=== PATIENT | male | born 1995 | race Two or more races ===

== ENCOUNTER 2024-01-16 01:27 | Inpatient (IN) | payer BC, OTHER ==
[~2024-01-16] VITALS: Ht 182.9 cm; Wt 63.2 kg
[2024-01-16] VITALS (14 sets, daily range): BP systolic 107–128; BP diastolic 55–77; PULSE 119–153; RESP 16–24; TEMP 98.3–100.6; O2SAT 98–100
--- NOTE | 2024-01-16 02:05 | ED.PDOC ---
History of Present Illness HPI Comments 28-year-old male with PMHx Anemia, Ulcerative Colitis presents with a chief complaint of insect bites x 3 days. Patient states that he has three insect bites, one to his left forearm and two to his groin area. Patient mentions that one in his groin area and the one on his forearm have popped and are painful. Patient is pale in color and reports that he has been sick for "some time now". No other symptoms or modifying factors present at this time. Chief Complaint: Insect Bite Time Seen by MD: 01:43 Reviewed Notes: Medications, Allergies Allergies: Coded Allergies: NO KNOWN ALLERGIES (Unverified , 01/16/24) Information Source: Patient Mode of Arrival: Ambulatory Severity: Moderate Timing: Days Duration: Since onset Prehospital treatment: None Past Medical History PAST MEDICAL HISTORY: Anemia Past Medical History (Other): Ulcerative Colitis Surgical History: Denies all surgeries Family History Family History: Reviewed,noncontributory to illness Social History Smoker: Non-Smoker Alcohol: Denies ETOH Use Drugs: Denies Drug Use Lives In: Home Constitutional: denies: chills, diaphoresis, fatigue, fever, malaise, sweats, weakness, others EENTM: denies: blurred vision, double vision, ear bleeding, ear discharge, ear drainage, ear pain, ear ringing, eye pain, eye redness, hearing loss, mouth pain, mouth swelling, nasal discharge, nose bleeding, nose congestion, nose pain, photophobia, tearing, throat pain, throat swelling, voice changes, others Respiratory: denies: cough, hemoptysis, orthopnea, SOB at rest, shortness of breath, SOB with excertion, stridor, wheezing, others Cardiovascular: denies: chest pain, dizzy spells, diaphoresis, Dyspnea on exertion, edema, irregular heart beat, left arm pain, lightheadedness, palpitations, PND, syncope, others Gastrointestinal: denies: abdomen distended, abdominal pain, blood streaked bowels, constipated, diarrhea, dysphagia, difficulty swallowing, hematemesis, melena, nausea, poor appetite, poor fluid intake, rectal bleeding, rectal pain, vomiting, others Genitourinary: denies: burning, dysuria, flank pain, frequency, hematuria, incontinence, penile discharge, penile sore, pain, testicle pain, testicle swelling, urgency, others Neurological: denies: dizziness, fainting, headache, left sided numbness, left sided weakness, numbness, paresthesia, pre-existing deficit, right sided numbness, right sided weakness, seizure, speech problems, tingling, tremors, weakness, others Musculoskeletal: denies: back pain, gout, joint pain, joint swelling, muscle pain, muscle stiffness, neck pain, others Integumetry: reports: wounds (Left Forearm Ulceration, 2 Ulcerations to Groin Area); denies: bruises, change in color, change in hair/nails, dryness, laceration, lesions, lumps, rash, others Allergic/Immunocompromised: denies: Difficulty Healing, Frequent Infections, Hives, Itching, others Hematologic/Lymphatic: denies: anemia, blood clots, easy bleeding, easy bruising, swollen glands, others Endocrine: denies: excessive hunger, excessive sweating, excessive thirst, excessive urination, flushing, intolerance to cold, intolerance to heat, unexplained weight gain, unexplained weight loss, others Psychiatric: denies: anxiety, bipolar disorder, depression, hopeless, panic disorder, schizophrenia, sleepless, suicidal, others All Other Systems: Reviewed and Negative Physical Exam General Appearance: No Apparent Distress, Thin, Other (PALE IN COLOR) HEENT: Normal ENT Inspection, Pharynx Normal, TMs Normal Neck: Full Range of Motion, Non-Tender, Normal, Normal Inspection Respiratory: Chest Non-Tender, Lungs Clear, No Accessory Muscle Use, No Respiratory Distress, Normal Breath Sounds Cardiovascular: No Edema, No JVD, No Murmur, No Gallop, Normal Peripheral Pulses, Regular Rate/Rhythm Breast Exam: Deferred Gastrointestinal: No Organomegaly, Non Tender, No Pulsatile Mass, Normal Bowel Sounds, Soft Genitalia: Deferred Pelvic: Deferred Rectal: Deferred Extremities: No calf tenderness, Normal capillary refill, Normal range of motion, Non-tender, No pedal edema, Other (1cm ulceration to left forearm) Musculoskeletal : Apperance: Normal Neurologic: Alert, 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 Was a procedure done?: No Differential Dx Considerations may include: Cellulitis, symptomatic anemia, immunocompromise X-Ray, Labs, Meds, VS Vital Signs Date Time Temp Pulse Resp B/P (MAP) Pulse Ox O2 Delivery O2 Flow Rate FiO2 01/16/24 02:23 125 16 98 Room Air* 0 21 01/16/24 02:23 99.3 125 16 121/72 (88) 98 99.3 01/16/24 01:37 99.2 129 18 128/79 (95) 100 Lab Test 01/16/24 04:05 01/16/24 02:30 Range/Units Lactic Acid Level Pending 2.3 *H 0.4-2.0 mmol/L White Blood Count 24.9 H 4.4-10.8 10^3/uL Red Blood Count 4.34 L 4.5-5.90 10^6/uL Hemoglobin 7.5 L 13.5-17.5 g/dL Hematocrit 24.5 L 41.0-53.0 % Mean Corpuscular Volume 56.5 L 80.0-100.0 fL Mean Corpuscular Hemoglobin 17.3 L 28.0-32.0 pg Mean Corpuscular Hemoglobin Concent 30.6 L 32.0-36.0 g/dL Red Cell Distribution Width 19.6 H 11.8-14.3 % Platelet Count 583 H 140-450 10^3/uL Mean Platelet Volume 8.3 6.9-10.8 fL Neutrophils (%) (Auto) 78.1 37.0-80.0 % Lymphocytes (%) (Auto) 8.4 L 10.0-50.0 % Monocytes (%) (Auto) 11.7 0.0-12.0 % Eosinophils (%) (Auto) 1.6 0.0-7.0 % Basophils (%) (Auto) 0.2 0.0-2.0 % Neutrophils # (Auto) 19.4 H 1.6-8.6 10 ^3/uL Lymphocytes # (Auto) 2.1 0.4-5.4 10 ^3/uL Monocytes # (Auto) 2.9 H 0-1.3 10 ^3/uL Eosinophils # (Auto) 0.4 0-0.8 10 ^3/uL Basophils # (Auto) 0.1 0-0.2 10 ^3/uL Nucleated Red Blood Cells 0.1 % Platelet Estimate Pending Sodium Level 129 L 136-145 mmol/L Potassium Level 4.2 3.5-5.1 mmol/L Chloride Level 97 L 98-107 mmol/L Carbon Dioxide Level 24 20-31 mmol/L Anion Gap 8 5-15 Blood Urea Nitrogen 10 9-23 mg/dL Creatinine 0.67 L 0.700-1.30 mg/dL Glomerular Filtration Rate Calc 132 >90 mL/min BUN/Creatinine Ratio 14.9 10.0-20.0 Serum Glucose 115 H 74-106 mg/dL Calcium Level 9.0 8.7-10.4 mg/dL Current Medications Medications (Trade) Dose Ordered Sig/Latoya Route Start Time Stop Time Status Last Admin Sodium Chloride 3,000 ml @ 1,000 mls/hr Q3H ONCE IV 01/16/24 03:15 01/16/24 06:14 01/16/24 03:17 Vancomycin HCl 200 ml @ 200 mls/hr ONCE ONCE IV 01/16/24 03:15 01/16/24 04:14 DC 01/16/24 03:19 Time of 1ST Reevaluation: 02:13 Reevaluation 1ST: Unchanged Patient Education/Counseling: Diagnosis, Treatment, Prognosis Family Education/Counseling: No Family Present Departure 1 Departure Time of Disposition: 04:45 (Patient with ulcerative colitis with symptomatic anemia and diffuse ulcers with elevated white count, lactic acid. Will treat patient with antibiotics, fluids, blood, and admission. ) Impression: Primary Impression: Cellulitis Qualified Codes: L03.114 - Cellulitis of left upper limb Additional Impressions: Wounds, multiple open, arm Qualified Codes: S41.109A - Unspecified open wound of unspecified upper arm, initial encounter Symptomatic anemia Ulcerative colitis Qualified Codes: K51.011 - Ulcerative (chronic) pancolitis with rectal bleeding Disposition: ADMITTED INPATIENT Admit to: Med Surg Condition: Serious Critical Care Note Critical Care Time?: No Stability Stability form required: No I personally scribed for SYDNEY FARAH MD ([email or web address]) on 01/16/24 at 02:05. Electronically submitted by Sean Rosen ([email or web address]). I personally scribed for SYDNEY FARAH MD ([email or web address]) on 01/16/24 at 02:07. Electronically submitted by Sean Rosen ([email or web address]). SYDNEY FARAH MD Jan 16, 2024 02:05
[2024-01-16 02:48] LABS: Basophils # (auto) 0.1 10 ^3/uL (0-0.2); Lymphocytes # (auto) 2.1 10 ^3/uL (0.4-5.4); Lymphocytes % (auto) 8.4 % (10.0-50.0)
[2024-01-16 02:50] LABS: Basophils % (auto) 0.2 % (0.0-2.0); Eosinophils # (auto) 0.4 10 ^3/uL (0-0.8); Eosinophils % (auto) 1.6 % (0.0-7.0); Hematocrit 24.5 % (41.0-53.0); Hemoglobin 7.5 g/dL (13.5-17.5); Mean Corpuscular Hemoglobin 17.3 pg (28.0-32.0); Mean Corpuscular Hgb Conc. 30.6 g/dL (32.0-36.0); Mean Corpuscular Volume 56.5 fL (80.0-100.0); Monocytes # (auto) 2.9 10 ^3/uL (0-1.3); Monocytes % (auto) 11.7 % (0.0-12.0); Neutrophils # (auto) 19.4 10 ^3/uL (1.6-8.6); Neutrophils % (auto) 78.1 % (37.0-80.0); Nucleated Red Blood Cells % 0.1 %; Platelet Count (auto) 583 10^3/uL (140-450); Red Blood Cells 4.34 10^6/uL (4.5-5.90); Red Cell Distribution Width 19.6 % (11.8-14.3); White Blood Cell 24.9 10^3/uL (4.4-10.8)
[2024-01-16 02:56] LABS: Potassium 4.2 mmol/L (3.5-5.1)
[2024-01-16 02:57] LABS: Anion Gap 8 (5-15); Carbon Dioxide 24 mmol/L (20-31)
[2024-01-16 03:02] LABS: BUN/Creatinine Ratio 14.9 (10.0-20.0); Blood Urea Nitrogen 10 mg/dL (9-23)
[2024-01-16 03:12] LABS: Chloride 97 mmol/L (98-107); Glucose 115 mg/dL (74-106); Sodium 129 mmol/L (136-145)
[2024-01-16] MEDS: SODIUM CHLORIDE 0.9% 3,000 ML IV ONE (03:17)
[2024-01-16] MEDS: VANCOMYCIN 1GM/250ML KIT 200 ML IV ONE (03:19)
[2024-01-16 03:20] LABS: Lactic Acid w/Reflex 2.3 mmol/L (0.4-2.0)
[2024-01-16] MEDS: ONDANSETRON HCL 4 MG/2 ML VIAL IV ONE (04:45)
[2024-01-16] MEDS: CEFEPIME 2GM/50ML NS 50 ML IV ONE (04:45)
[2024-01-16] MEDS: LACTATED RINGER'S 2,350 ML IV ONE (05:00)
[2024-01-16] MEDS: LACTATED RINGER'S 1,000 ML IV ONE (05:00)
--- NOTE | 2024-01-16 05:06 | DVHHPRES ---
History of Present Illness Resident Creating Document: HARDIK RUVALCABA RESIDENT History of Present Illness Mr. Banks, a 28-year-old male with a past medical history of anemia and ulcerative colitis presents with a chief complaint of insect bites for the past three days one to his left forearm and two to his groin area. He mentions that the bites on his forearm wounds developed ulceration and one in his groin have popped and are painful. The patient appears pale and states that he has been feeling unwell for Past 3 days With moderate severity. Patient denies any fever, chills, nausea vomiting , previous similar episode or any other relevant systemic symptoms. Patient is originally from [facility] and on trach visiting [facility] with the family. Patient was mostly in the car while traveling in the area where he felt like he has been bitten by the bugs but could not see exactly what kind of insect. GI: Inflam bowel disease Heme/Onc: Anemia NOS Past Surgical History: None Family History: None Family History Noncontributory Smoke: No ALCOHOL: none Drugs: None Lives: with Family Domestic Violence: Neg Review of Systems Constitutional: Yes: Malaise, Other (Increasing fatigue) Eyes: No: Pain, Vision change, Conjunctivae inflammation, Eyelid inflammation, Other, Redness ENT: No: Ear pain, Ear discharge, Nose pain, Nose discharge, Nose congestion, Mouth pain, Mouth swelling, Throat pain, Throat swelling, Other Respiratory: No: Cough, Dry, Shortness of breath, SOB with excertion, Wheezing, Hemoptysis, Pleuritic Pain, Sputum, Wheezing, Other Cardiovascular: No: Chest Pain, Palpitations, Orthopnea, Paroxysmal Noc. Dyspnea, Edema, Lt Headedness, Other Gastrointestinal: Other (Known history of ulcerative colitis and lower GI bleed.) Genitourinary: No Dysuria, No Frequency, No Incontinence, No Hematuria, No Retention, No Other Musculoskeletal: other (Skin ulceration with underlying cellulitis as mentioned) Skin: No: Rash, Lesions, Jaundice, Bruising, Other Neurological: No: Weakness, Numbness, Incoordination, Change in speech, Confusion, Seizures, Other Allergies: Coded Allergies: NO KNOWN ALLERGIES (Unverified , 01/16/24) Medications Current Medications Medications Dose Ordered Sig/Latoya Route Start Time Stop Time Status Last Admin Dose Admin Nitroglycerin 0.4 mg Q5MINP PRN SL 01/16/24 05:15 Morphine Sulfate 2 mg Q30M PRN IV 01/16/24 05:15 Exam Vital Signs Vital Signs Date Time Temp Pulse Resp B/P (MAP) Pulse Ox O2 Delivery O2 Flow Rate FiO2 01/16/24 02:23 125 16 98 Room Air* 0 21 01/16/24 02:23 99.3 121/72 (88) 99.3 [facility]am [facility], limited examination. General Appearance: Alert, Oriented X3, Cooperative, No acute distress, Other ( patient looks overall pale, malnourished.) HEENT: Atraumatic, PERRLA, EOMI, Mucous membr. moist/pink, Other (Bilateral conjunctival pallor,) Respiratory: Clear to auscultation, Normal air movement Cardiovascular: Regular rate, Normal S1, Normal S2, No murmurs Abdominal: Normal bowel sounds, Soft, No tenderness, No hepatospenomegaly, No masses Extremities: Other (Wound in forearm and groin redness, local tenderness and marked boundary) Neuro: Normal speech, Strength at 5/5 X4 ext, Normal tone, Sensation intact, Cranial nerves 3-12 NL, Reflexes 2+, Other (Gait deferred) Psych/Mental Status: Mental status NL, Mood NL Labs/Xrays Labs Test 01/16/24 04:05 01/16/24 02:30 Range/Units White Blood Count 24.9 H 4.4-10.8 10^3/uL Red Blood Count 4.34 L 4.5-5.90 10^6/uL Hemoglobin 7.5 L 13.5-17.5 g/dL Hematocrit 24.5 L 41.0-53.0 % Mean Corpuscular Volume 56.5 L 80.0-100.0 fL Mean Corpuscular Hemoglobin 17.3 L 28.0-32.0 pg Mean Corpuscular Hemoglobin Concent 30.6 L 32.0-36.0 g/dL Red Cell Distribution Width 19.6 H 11.8-14.3 % Platelet Count 583 H 140-450 10^3/uL Mean Platelet Volume 8.3 6.9-10.8 fL Neutrophils (%) (Auto) 78.1 37.0-80.0 % Lymphocytes (%) (Auto) 8.4 L 10.0-50.0 % Monocytes (%) (Auto) 11.7 0.0-12.0 % Eosinophils (%) (Auto) 1.6 0.0-7.0 % Basophils (%) (Auto) 0.2 0.0-2.0 % Neutrophils # (Auto) 19.4 H 1.6-8.6 10 ^3/uL Lymphocytes # (Auto) 2.1 0.4-5.4 10 ^3/uL Monocytes # (Auto) 2.9 H 0-1.3 10 ^3/uL Eosinophils # (Auto) 0.4 0-0.8 10 ^3/uL Basophils # (Auto) 0.1 0-0.2 10 ^3/uL Nucleated Red Blood Cells 0.1 % Sodium Level 129 L 136-145 mmol/L Potassium Level 4.2 3.5-5.1 mmol/L Chloride Level 97 L 98-107 mmol/L Carbon Dioxide Level 24 20-31 mmol/L Anion Gap 8 5-15 Blood Urea Nitrogen 10 9-23 mg/dL Creatinine 0.67 L 0.700-1.30 mg/dL Glomerular Filtration Rate Calc 132 >90 mL/min BUN/Creatinine Ratio 14.9 10.0-20.0 Serum Glucose 115 H 74-106 mg/dL Calcium Level 9.0 8.7-10.4 mg/dL [place] [id number] Ph: [phone] DIAGNOSTIC IMAGING Diagnostic Imaging Report : [id number] Signed PATIENT: HARMAN GUADALUPE ACCT: [id number] UNIT: [id number] : 1995 LOC: TELE ROOM / BED: [address] [place] [address] AGE / SEX: 28 / M ADM STATUS: ADM IN SERVICE 2 ORDERING PHYSICIAN: HARDIK RUVALCABA RESIDENT PROCEDURE(s): LUEXT - LEFT UPPER EXT REASON: LEFT UPPER FORARM R/O ABCESS ORDER NUMBER(s): [id number], ACCESSION NUMBER(s): [id number] Exam: US LEFT UPPER EXT Date: 01/16/2024 07:46 AM Clinical History: LEFT UPPER FORARM R/O ABCESS Comparison: None Technique: Targeted sonographic evaluation of the soft tissues of the left forearm was obtained utilizing grayscale and color Doppler imaging. Findings: 0.6 x 0.5 x 0.6 cystic mass like structure left forearm. Findings could represent a sebaceous cyst. IMPRESSION: 0.6 x 0.5 x 0.6 cystic mass like structure left forearm. Findings could represent a sebaceous cyst.. ATED BY: TORO SANZ MD DICTATED DATE/TIME: 01/16/24820 SIGNED BY: TORO SANZ MD SIGNED DATE/TIME: 01/16/24820 CC: Assessment/Plan Assessment/Plan Assessment: Mr. Banks, a 28-year-old male with a history of anemia and ul cerative colitis, presents with insect bites for the past three days, including one on his left forearm and two in his groin area. The bites on his forearm have ulcerated, and one in his groin has popped and is painful. He appears pale and reports feeling unwell for the past three days with moderate severity. He denies fever, chills, nausea, vomiting, or other systemic symptoms. No previous hospitalization noted. Plan: #1 Multiple insect bites, unknown kind: Patient is not sure of what insect, probability of having brown recluse spider, scorpion usual be treated more seriously. #2 Skin ulceration with underlying cellulitis: We will cover with broad antibiotics with IV vancomycin and Zosyn covering both a MRSA and Pseudomonas along with other anaerobic bacteria. #3 Severe sepsis secondary to above: IV antibiotics, appropriate fluid resuscitation, close monitoring in the hospital with telemetry, surgical and wound consult done. Surgical debridement/ wound debridement might be necessary. presumably with lactic acidosis of 2.3, subsided with initial treatment. #3 History of ulcerative colitis, pancolitis with rectal bleeding: Denies any present symptoms. Abdominal unremarkable, bowel sounds positive. Follow up CMP. #4 Microcytic hypochromic anemia: Overall patient looks pale, Hemoglobin 7.5, MCV 56.5, We will check iron panel along with ferritin. Treatment as necessa ry, closely follow CBC and differential, transfusion threshold 7. Check stool occult blood. #5 thrombocytosis: Likely reactive due to active inflammation. #6: Mild hyponatremia: Around 129 repeat CMP, continue fluid if worsens we will manage. #7: Mild protein energy malnourishment: BMI of 17.9, patient has low muscle mass. Nutritional supplement might be helpful. PUD prophylaxis: protonix 40mg continue. DVT prophylaxis: SCD to continue. Barriers to discharge: Medical diagnosis and management in progress. PCP: Patient had per primary care physician at [facility] but no local PCP. Never followed with GI specialist. Specialist Relevant To Admission: general surgery Case discussed with Dr. Shelton. Code Status: Full Code. Discussion and care planning needed total 29 minutes bedside. Plan discussed with: Patient, Other (Primary team, RN.) My Orders Orders - HARDIK RUVALCABA Procedure Category Date Status Time Lactated Ringer's PHA 01/16/24 In Process 05:00 Lactated Ringer's PHA 01/16/24 In Process 05:00 Admit ADMIT 01/16/24 Transmitted 05:01 Nitroglycerin [facility] 01/16/24 In Process Sublingual (Ntrostat 05:15 Morphine Sulfate PHA 01/16/24 In Process Injection 05:15 Oxygen By Nasal RT 01/16/24 Transmitted Cannula 05:01 Stat Ekg For Chest [facility] 01/16/24 In Process Pain 05:01 Notify Of Changes [facility] 01/16/24 In Process From Base 05:01 Bicycle Courier For [facility] 01/16/24 In Process 24 Hours 05:01 Emergency Dysrhythmia [facility] 01/16/24 In Process Protocol 05:01 Rhythm Strips Once [facility] 01/16/24 In Process Every Shift 05:01 Thyroid Stimulating LAB 01/16/24 Logged Hormone 05:04 Comprehensive LAB 01/16/24 Logged Metabolic Panel 05:04 Complete Blood Count LAB 01/16/24 Logged 05:04 Haptoglobin LAB 01/16/24 Logged 05:04 Lactate Dehydrogenase LAB 01/16/24 Logged 05:04 Drug Screen LAB 01/16/24 Verified 05:05 Urinalysis LAB 01/16/24 Verified 05:05 Blood Culture RAÚL 01/16/24 Verified 05:05 Date of Service: Jan 16, 2024 Billing Provider: REBEKAH SHELTON MD Common Visit Codes: 21497-[id number] INP/OBS CARE (HIGH) Secondary Visit Codes: [id number] CARE PLAN 30 MINUTES HARDIK RUVALCABA Jan 16, 2024 05:06 REBEKAH SHELTON MD Jan 16, 2024 12:12
[2024-01-16] MEDS ORDERED: NITROGLYCERIN 0.4 MG SL TAB SL PRN (05:15)
[2024-01-16] MEDS ORDERED: MORPHINE SULFATE INJ 2 MG/ml SYRG IV PRN (05:15)
[2024-01-16 05:40] LABS: Anisocytosis Slight; Hypochromia Marked; Large Platelets FEW; Platelet Estimate Increased; Target Cell FEW
[2024-01-16] MEDS: IOHEXOL 300 MG/ML 100ML BOTTLE IJ ONE (06:56)
[2024-01-16 07:04] LABS: Blood Alcohol < 3.0 mg/dL (<10)
[2024-01-16 07:05] LABS: Alanine Aminotransferase 39 U/L (7-40); Anion Gap 5 (5-15); Aspartate Aminotransferase 22 U/L (13-40); BUN/Creatinine Ratio 12.9 (10.0-20.0); Calcium 8.7 mg/dL (8.7-10.4); Carbon Dioxide 23 mmol/L (20-31); Chloride 102 mmol/L (98-107); Potassium 4.2 mmol/L (3.5-5.1)
[2024-01-16 07:06] LABS: Alkaline Phosphatase 346 U/L (46-116); Bilirubin, Total 0.5 mg/dL (0.2-1.0); Blood Urea Nitrogen 8 mg/dL (9-23); Glucose 111 mg/dL (74-106); Sodium 130 mmol/L (136-145); Total Protein 7.4 g/dL (5.7-8.2)
[2024-01-16 07:16] LABS: CRP High Sensitivity 15.29 mg/dL (<1.0); INR 1.31 (0.9-1.15); Partial Thromboplastin Time 29.8 SEC (24.5-34.5); Prothrombin Time 13.6 sec (9.3-11.8)
[2024-01-16 07:45] LABS: Erythrocyte Sedimentation Rate 96 mm/hr (0-20)
--- NOTE | 2024-01-16 08:23 | DVH ---
Exam: US LEFT UPPER EXT Date: 01/16/2024 07:46 AM Clinical History: LEFT UPPER FORARM R/O ABCESS Comparison: None Technique: Targeted sonographic evaluation of the soft tissues of the left forearm was obtained utilizing graysc velvet and color Doppler imaging. Findings: 0.6 x 0.5 x 0.6 cystic mass like structure left forearm. Findings could represent a sebaceous cyst. IMPRESSION: 0.6 x 0.5 x 0.6 cystic mass like structure left forearm. Findings could represent a sebaceous cyst..
[2024-01-16 08:26] LABS: Thyroid Stimulating Hormone 3.1 uIU/mL (0.55-4.78)
--- NOTE | 2024-01-16 08:56 | DVH ---
CT ABDOMEN AND PELVIS WITH and without CONTRAST CLINICAL HISTORY: Abcess and wound in the pelvis extentent TECHNIQUE: Multidetector CT of the abdomen was performed from lung bases to pubic symphysis. Imaging was performed with and without IV contrast. Axial, coronal and sagittal multiplanar reformats were ob tained from the axial data set by the technologist. 100 cc of Omnipaque 300 contrast was inject ed intravenously. Radiation optimization: All CT scans at this facility use at least one of these dose optimization yaa hniques: automated exposure control mA and/or kV adjustment per patient size (includes targeted exam s where dose is matched to clinical indication) or iterative reconstruction. Radiation Dose Information: CT Dose: CTDI volume is 5.16 mGy. Dose-length product is 577.17 mGy*cm Comparison: None FINDINGS: There is a mildly hypodense collection along the lateral margins of the spleen measuring 1.9 cm in m aximum diameter. The collection demonstrates Hounsfield unit measurements higher than simple fluid. There is scalloping along the lateral margins of the spleen and a wedge defect in the upper spleen. F luid does not appear to be free fluid.. There are also several nonspecific hypodense lesions in the s pleen measuring up to 1.1 cm. The liver, gallbladder, pancreas, kidneys, adrenal glands, appear within normal limits. There is no evidence of abdominal lymphadenopathy. There is no free fluid or free air. The small and large bowel loops demonstrate normal caliber and appear within normal limits.. The abdominal aorta and IVC appear within normal limits. The bladder appears unremarkable. The pelvic organs appears unremarkable. There is no evidence of a pelvic mass or lymphadenopathy. There is no free fluid collection. There is a nonspecific 1.7 cm cyst ic structure along the right external iliac vessels. There is small left pleural effusion. There is no acute osseous abnormality. IMPRESSION: 1. Mildly hypodense collection along the lateral margins of the spleen measuring 1.9 cm in diameter. The collection does not appear to be simple fluid and there is scalloping along the lateral margins o f the spleen. There is a wedge defect in the upper spleen. The findings may represent changes related to splenic laceration and subcapsular hematoma. Splenic abscess is not entirely excluded. Clinical c orrelation is recommended. If warranted, further evaluation with cT-guided aspiration may be perform ed. 2. Several nonspecific hypodense lesions in the spleen measuring up to 1.1 cm. These do not appear to be simple cysts. Further evaluation with multiphase MRI abdomen is recommended. 3. Nonspecific 1.7 cm cystic structure along the right external iliac vessels. 4. Small left-sided pleural effusion. HS:Y
--- NOTE | 2024-01-16 08:59 | DVH ---
LEFT UPPER EXTREMITY VENOUS DOPPLER CLINICAL HISTORY: LEFT ARM SWELLING TECHNIQUE: [Technique] Upper extremity venous Doppler study was performed. Comparison: None FINDINGS: The left basilic vein is not seen on the current study. The left internal jugular, subclavian, axilla ry, brachial, cephalic, radial and ulnar veins appear patent with normal augmentation, phasicity, co mpressibility and color-flow. IMPRESSION: 1. No sonographic evidence of DVT in the visualized left upper extremity veins. HS:Y
--- NOTE | 2024-01-16 10:14 | DVH ---
CHEST RADIOGRAPH Indication: decreased breath sounds Technique: Single frontal view of the chest was obtained COMPARISON: None FINDINGS: Lines and Tubes: None Lungs: Clear Pleura: No effusion. No pneumothorax. Cardiomediastinal contours: Unremarkable Bones: Unremarkable IMPRESSION: No acute disease.
[2024-01-16] MEDS: PANTOPRAZOLE 40 MG/10 ML VIAL INJ IV SCH (10:47)
[2024-01-16] MEDS ORDERED: VANCOMYCIN PER PHARMACY 0 MG IV SCH (11:00)
--- NOTE | 2024-01-16 11:20 | DVHINCON2 ---
Date of service: Jan 16, 2024 Allergies: Coded Allergies: NO KNOWN ALLERGIES (Unverified , 01/16/24) Current Medications Current Medications Medications (Trade) Dose Ordered Sig/Latoya Route PRN Reason Start Time Stop Time Status Last Admin Nitroglycerin (Ntrostat Sublingual) 0.4 mg Q5MINP PRN SL FOR CHEST PAIN 01/16/24 05:15 Morphine Sulfate 2 mg Q30M PRN IV FOR CHEST PAIN 01/16/24 05:15 Piperacillin Sod/ Tazobactam Sod 100 ml @ 25 mls/hr Q6HR IV 01/16/24 12:00 Pantoprazole Sodium (Protonix) 40 mg DAILY IV 01/16/24 10:00 01/16/24 10:47 Vancomycin HCl 0 ml @ 0 mls/hr UD IV 01/16/24 11:00 UNV Acetaminophen (Tylenol Tablet) 650 mg Q6HP PRN PO TEMP GREATER THAN 100.4 01/16/24 11:00 UNV Vital Signs Vital Signs Date Time Temp Pulse Resp B/P (MAP) Pulse Ox O2 Delivery O2 Flow Rate FiO2 01/16/24 10:51 153 18 100 Room Air* 0 21 01/16/24 10:50 101.8 122/65 (84) 101.8 Labs/Diagnostic Data Labs Test 01/16/24 11:13 01/16/24 06:39 01/16/24 04:05 01/16/24 02:30 Range/Units Erythrocyte Sedimentation Rate 96 H 0-20 mm/hr Prothrombin Time 13.6 H 9.3-11.8 sec Prothrombin Time INR 1.31 H 0.9-1.15 Activated Partial Thromboplast Time 29.8 24.5-34.5 SEC Sodium Level 130 L 136-145 mmol/L Potassium Level 4.2 3.5-5.1 mmol/L Chloride Level 102 98-107 mmol/L Carbon Dioxide Level 23 20-31 mmol/L Anion Gap 5 5-15 Blood Urea Nitrogen 8 L 9-23 mg/dL Creatinine 0.62 L 0.700-1.30 mg/dL Glomerular Filtration Rate Calc 135 >90 mL/min BUN/Creatinine Ratio 12.9 10.0-20.0 Serum Glucose 111 H 74-106 mg/dL Calcium Level 8.7 8.7-10.4 mg/dL Iron Level 11 L 65-175 ug/dL Ferritin 23.4 22-322 ng/mL Total Bilirubin 0.5 0.2-1.0 mg/dL Aspartate Amino Transferase (AST) 22 13-40 U/L Alanine Aminotransferase (ALT) 39 7-40 U/L Alkaline Phosphatase 346 H 46-116 U/L Lactate Dehydrogenase 128 120-246 U/L C-Reactive Protein High Sensitivity 15.29 H <1.0 mg/dL Total Protein 7.4 5.7-8.2 g/dL Albumin 3.0 L 3.2-4.8 g/dL Thyroid Stimulating Hormone (TSH) 3.10 0.55-4.78 uIU/mL Plasma/Serum Blood Alcohol < 3.0 <10 mg/dL Lactic Acid Level 1.1 0.4-2.0 mmol/L White Blood Count 24.9 H 4.4-10.8 10^3/uL Red Blood Count 4.34 L 4.5-5.90 10^6/uL Hemoglobin 7.5 L 13.5-17.5 g/dL Hematocrit 24.5 L 41.0-53.0 % Mean Corpuscular Volume 56.5 L 80.0-100.0 fL Mean Corpuscular Hemoglobin 17.3 L 28.0-32.0 pg Mean Corpuscular Hemoglobin Concent 30.6 L 32.0-36.0 g/dL Red Cell Distribution Width 19.6 H 11.8-14.3 % Platelet Count 583 H 140-450 10^3/uL Mean Platelet Volume 8.3 6.9-10.8 fL Neutrophils (%) (Auto) 78.1 37.0-80.0 % Lymphocytes (%) (Auto) 8.4 L 10.0-50.0 % Monocytes (%) (Auto) 11.7 0.0-12.0 % Eosinophils (%) (Auto) 1.6 0.0-7.0 % Basophils (%) (Auto) 0.2 0.0-2.0 % Neutrophils # (Auto) 19.4 H 1.6-8.6 10 ^3/uL Lymphocytes # (Auto) 2.1 0.4-5.4 10 ^3/uL Monocytes # (Auto) 2.9 H 0-1.3 10 ^3/uL Eosinophils # (Auto) 0.4 0-0.8 10 ^3/uL Basophils # (Auto) 0.1 0-0.2 10 ^3/uL Nucleated Red Blood Cells 0.1 % Platelet Estimate Increased Large Platelets Few Hypochromasia (manual) Marked Poikilocytosis (manual) Slight Anisocytosis (manual) Slight Microcytosis Marked Target Cells Few Schistocytes Few Assessment pleaase 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
[2024-01-16] MEDS: PIPERACILLIN-TAZOB 3.375GM 100 ML IV SCH (12:30)
[2024-01-16 12:56] LABS: Hepatitis B Surface Antibody Negative (Negative)
[2024-01-16 13:08] LABS: Hepatitis B Surface Antigen Negative (Negative)
[2024-01-16] MEDS: ACETAMINOPHEN 325 MG TAB PO PRN (15:31)
[2024-01-16] MEDS: VANCOMYCIN 1GM/250ML KIT 250 ML IV SCH (16:31)
[2024-01-16] MEDS: LACTATED RINGER'S 1,000 ML IV SCH (18:30)
[2024-01-16 18:36] LABS: Urine Bacteria None Seen /hpf (None Seen)
--- NOTE | 2024-01-16 19:09 | DVHPNRES ---
Progress Note Date Seen: Jan 16, 2024 Resident Creating Document: JHNikoJMARGA AlfaroJESSICA RESIDENT Medical Necessity Reason Pt with a Central, PICC or Fol: No Subjective Review of Systems Patient is a 28-year-old male with a past medical history of ulcerative colitis and chronic anemia came to the ED with a chief complaint of multiple tender Swellings. The patient was originally from [place] and is visiting his sister who lives in [place]. He reports that he along with the parents came to [place] on a car, started on when he noticed a swelling developing above the left lateral malleolus, noticed to be gradually enlarging, tender and erythematous with a central developing pus point , it is about 2x2 cm in size. Patient had 3 other small swellings, 2 in the groin and 1 in the left arm on the ventral aspect near the elbow. Patient reports feeling feverish since the time he has had these swellings develop. Reports passing 1-2 watery loose stools since the past one week, brownish in color without any apparent blood. Patient reports that on the way from [place] to [place] this stopped at a motel 1st day overnight stopped out multiple cyst points but is not shows if he was bitten by any insects. Patient denied dizziness, nausea, vomiting, headache. Patient also reports cough since the last 1 week with the associated left sided chest pain which he attributes to sleeping in a wrong way. Past medical history: Chronic anemia, ulcerative colitis Past surgical history: None reported Social history: Lives with parents and denies smoking, alcohol, drug use Family history: Denies history of inflammatory bowel disease in family Home medications: None Review of systems Patient was seen and examined at the bedside. A/O x 4. Patient has a swelling of the left lateral malleolus measuring 2X2 cm, erythematous, has a central raised part which busted open to ooze serosanguineous fluid, extremity tender to touch. One with the swelling in the groin has bursted and now has a ulcer which is draining white-yellowish fluid, the other one in the groin has developed a pus point. The swelling on the left arm bursted and there is an ulcer with undermined edges. Patient had fever upto 101.8 F , tachycardia and elevated WBC count. Patient was saturating more than 95% on room air. Patient does not report of any joint pain other than the left ankle pain and has little difficulty putting weight on the left ankle. Objective vital signs Vital Sign Date Time Temp Pulse Resp B/P (MAP) Pulse Ox O2 Delivery O2 Flow Rate FiO2 01/16/24 18:35 98.4 125 17 122/73 98.4 01/16/24 18:00 98 01/16/24 10:51 Room Air* 0 21 Total Intake and Output 01/15/24 01/15/24 01/16/24 15:00 23:00 07:00 Intake Total 2200 ml Balance 2200 ml medications Current Medications Medications Dose Ordered Sig/Latoya Route Start Time Stop Time Status Last Admin Dose Admin Nitroglycerin 0.4 mg Q5MINP PRN SL 01/16/24 05:15 Morphine Sulfate 2 mg Q30M PRN IV 01/16/24 05:15 Piperacillin Sod/ Tazobactam Sod 100 ml @ 25 mls/hr Q6HR IV 01/16/24 12:00 01/16/24 12:30 25 MLS/HR Pantoprazole Sodium 40 mg DAILY IV 01/16/24 10:00 01/16/24 10:47 40 MG Vancomycin HCl 0 ml @ 0 mls/hr UD IV 01/16/24 11:00 Acetaminophen 650 mg Q6HP PRN PO 01/16/24 11:00 01/16/24 15:31 650 MG Vancomycin HCl 250 ml @ 250 mls/hr Q8H IV 01/16/24 16:00 01/16/24 16:31 250 MLS/HR Lactated Ringer's 1,000 ml @ 150 mls/hr Q6H40M IV 01/16/24 18:30 Examination Physical Examination Gen - no pallor, no icterus, no cyanosis, no clubbing, no LAD, no edema . Skin - Patients skin is warm and dry. HEENT - normocephalic, atraumatic, dry mucous membranes. Neck - full ROM, no LAD, no JVD Pulmonary - B/L vesicular breath sounds. no crackles , no wheezing, no stridor. cardiovascular - normal S1,S2 heard. no murmurs heard. peripheral pulses normal radial 2+, pedal 2+. capillary refill normal <2 secs. GI - soft abdomen without tenderness to palpation.no hepatospleenomegaly. Bowel sounds normoactive Neurological - Patient is A/O X 3 . Bilateral upper extremity strength 5/5, bilateral lower extremity strength 5/5, no facial droop, normal speech, no tremor, no sensory deficiets. Ulcer # 1X1 cm ulcer in the left upper forearm with undermined edges. # 1X1 cm ulcer in the left upper groin with undermined edges and oozing white yellowish fluid Swelling # above the lateral malleoulus - no Osler nodes, no Janeway lesions, no splinter hemorrhages in the nails seen. laboratory and microbiology Laboratory Tests 01/16/24 06:39 01/16/24 02:30 Test 01/16/24 06:39 Range/Units Serum Glucose 111 H 74-106 mg/dL Problem List/Assessment/Plan Problem List/Assessment/Plan Assessment and plan # Sepsis likely due to ?Bacteremia # Bacteremia likely from ?insect bite ?wounds # ?splenic abcess - wound culture pending - blood culture pending - urine culture pending - CT abdomen pelvis with and without contrast mildly hypodense collection seen along the lateral margin of the spleen measuring 1.9 cm in diameter, scalloping along the lateral margins of the spleen, wedge-shaped defect in the upper spleen - Patient is on IV fluids LR @ 150ml/hr - IV Vancomycin + zosyn # Ulcerative colitis Flare up with ?pyoderma gangrenosum - Elevated ESR and CRP - ANCA pending - liver panel shows alkaline phosphatase at 356 # ? splenic abscess # ? splenic laceration # ? subscapular hematoma -CT abdomen pelvis with and without contrast mildly hypodense collection seen along the lateral margin of the spleen measuring 1.9 cm in diameter, scalloping along the lateral margins of the spleen, wedge-shaped defect in the upper spleen - Further investigation with CT guided aspiration may be performed - MRI abdomen may be performed # Microcytic hypochromic anemia # Iron deficiency - Patient given 2 units of PRBC Goals of care discussed with the patient for over 33 minutes. Full code Plan discussed with Dr. Eduardo Plan discussed with: Patient, Other (RN ( Tabatha )) My Orders My Orders Orders - ANGELICA CARO RESIDENT Procedure Category Date Status Time Chest Xray 1 View XY 01/16/24 Resulted 09:44 Wound Culture W/ Gs RAÚL 01/16/24 Uncollected 09:44 Echo 2d Mode Cardiac US 01/16/24 Logged DOP 17:48 Lactated Ringer's PHA 01/16/24 In Process 18:30 CC Plasma Assessment Blood Product Administration S: [id number] Date of Service: Jan 16, 2024 Billing Provider: RICHIE MILLER MD Common Visit Codes: [id number] INP/OBS CARE(HIGH) ANGELICA CARO RESIDENT Jan 16, 2024 19:09 RICHIE MILLER MD Jan 18, 2024 10:19
[2024-01-16 20:05] LABS: Urine Blood Negative /uL (Negative); Urine Clarity Clear (Clear); Urine Color Yellow (Yellow); Urine Mucus FEW (None Seen); Urine Protein, UAD TRACE (Negative); Urine Urobilinogen Normal (Negative); Urine WBC 3 /hpf (0 - 3); Urine pH 5.5 (5.0-9.0)
[2024-01-16 20:08] LABS: Amphetamine Screen, Urine Neg (NEGATIVE); Barbiturate Scree,Urine Neg (NEGATIVE); Benzodiazephine Screen, Urine Neg (NEGATIVE); Cocaine Screen, Urine Neg (NEGATIVE); Opiate Scree,Urine Neg (NEGATIVE)
[2024-01-16 20:09] LABS: Cannabinoid Screen, Urine Neg (NEGATIVE); Phencyclidine Screen, Urine Neg (NEGATIVE)
[2024-01-16 22:17] LABS: Hematocrit 29.2 % (41.0-53.0); Hemoglobin 8.9 g/dL (13.5-17.5)
[2024-01-17] VITALS (9 sets, daily range): BP systolic 104–137; BP diastolic 59–82; PULSE 116–133; RESP 14–19; TEMP 97.8–100.1; O2SAT 94–100
[2024-01-17 06:44] LABS: Basophils # (auto) 0.1 10 ^3/uL (0-0.2); Eosinophils # (auto) 0.4 10 ^3/uL (0-0.8); Hemoglobin 8.1 g/dL (13.5-17.5); Nucleated Red Blood Cells % 0.1 %; Red Blood Cells 4.19 10^6/uL (4.5-5.90); White Blood Cell 20.9 10^3/uL (4.4-10.8)
[2024-01-17 06:50] LABS: Basophils % (auto) 0.3 % (0.0-2.0); Eosinophils % (auto) 1.8 % (0.0-7.0); Hematocrit 26.1 % (41.0-53.0); Lymphocytes # (auto) 1.3 10 ^3/uL (0.4-5.4); Mean Corpuscular Hemoglobin 19.3 pg (28.0-32.0); Mean Corpuscular Hgb Conc. 30.9 g/dL (32.0-36.0); Mean Corpuscular Volume 62.3 fL (80.0-100.0); Monocytes # (auto) 2.2 10 ^3/uL (0-1.3); Monocytes % (auto) 10.6 % (0.0-12.0); Neutrophils % (auto) 81.3 % (37.0-80.0); Platelet Count (auto) 475 10^3/uL (140-450)
[2024-01-17 06:57] LABS: Red Cell Distribution Width 28.6 % (11.8-14.3)
[2024-01-17 07:03] LABS: Alanine Aminotransferase 28 U/L (7-40); Anion Gap 8 (5-15); Aspartate Aminotransferase 20 U/L (13-40); Carbon Dioxide 24 mmol/L (20-31); Chloride 100 mmol/L (98-107); Glucose 86 mg/dL (74-106); Magnesium 1.7 mg/dL (1.6-2.6)
[2024-01-17 07:04] LABS: Bilirubin, Total 0.8 mg/dL (0.2-1.0); Total Protein 5.8 g/dL (5.7-8.2)
[2024-01-17 07:07] LABS: Albumin 2.4 g/dL (3.2-4.8); Alkaline Phosphatase 287 U/L (46-116); BUN/Creatinine Ratio 7.5 (10.0-20.0); Blood Urea Nitrogen < 5 mg/dL (9-23); Calcium 8.1 mg/dL (8.7-10.4); Sodium 132 mmol/L (136-145)
[2024-01-17 09:06] LABS: Anisocytosis Moderate; Hypochromia Marked; Platelet Estimate Increased
[2024-01-17] MEDS ORDERED: methylPREDNISolone SOD SUCC 40 MG/ML VL IV ONE (10:30)
[2024-01-17] MEDS: FLUCONAZOLE 200MG/100ML 100 ML IV SCH (12:13)
[2024-01-17] MEDS: DOXYCYCLINE 100 MG TAB/CAP PO ONE (12:57)
--- NOTE | 2024-01-17 20:28 | DVHPNRES ---
Progress Note Date Seen: Jan 17, 2024 Resident Creating Document: JHNikoJANGELICA Alfaro RESIDENT Medical Necessity Reason Pt with a Central, PICC or Fol: No Subjective Review of Systems Patient was seen and examined at the bedside. A/O x 4. All the patient's swellings have bursted to form ulcers which have undermined edges. Patient appears weak in bed Does not report abdominal pain, nausea or vomiting Patient had a temprature of 99.7, blood pressure 123/70mmhg. Tachycardia with HR ranging from 120-130bpm. On room air Wound care was done and sterile dressings were applied Objective vital signs Vital Sign Date Time Temp Pulse Resp B/P (MAP) Pulse Ox O2 Delivery O2 Flow Rate FiO2 01/17/24 16:49 99.4 122 18 113/63 (80) 100 99.4 01/17/24 08:15 Room Air* 0 21 Total Intake and Output 01/16/24 01/16/24 01/17/24 15:00 23:00 07:00 Intake Total 650 ml 925 ml 800 ml Output Total 0 ml 0 ml 500 ml Balance 650 ml 925 ml 300 ml medications Current Medications Medications Dose Ordered Sig/Latoya Route Start Time Stop Time Status Last Admin Dose Admin Nitroglycerin 0.4 mg Q5MINP PRN SL 01/16/24 05:15 Morphine Sulfate 2 mg Q30M PRN IV 01/16/24 05:15 Piperacillin Sod/ Tazobactam Sod 100 ml @ 25 mls/hr Q6HR IV 01/16/24 12:00 01/17/24 12:57 25 MLS/HR Pantoprazole Sodium 40 mg DAILY IV 01/16/24 10:00 01/17/24 11:00 40 MG Vancomycin HCl 0 ml @ 0 mls/hr UD IV 01/16/24 11:00 Acetaminophen 650 mg Q6HP PRN PO 01/16/24 11:00 01/16/24 15:31 650 MG Vancomycin HCl 250 ml @ 250 mls/hr Q8H IV 01/16/24 16:00 01/17/24 19:34 250 MLS/HR Lactated Ringer's 1,000 ml @ 150 mls/hr Q6H40M IV 01/16/24 18:30 01/17/24 12:14 150 MLS/HR Doxycycline Monohydrate 100 mg Q12HR PO 01/17/24 22:00 Examination Physical Examination Gen - no pallor, no icterus, no cyanosis, no clubbing, no LAD, no edema . Skin - Patients skin is warm and dry. HEENT - normocephalic, atraumatic, dry mucous membranes. Neck - full ROM, no LAD, no JVD Pulmonary - B/L vesicular breath sounds. no crackles , no wheezing, no stridor. cardiovascular - normal S1,S2 heard. no murmurs heard. peripheral pulses normal radial 2+, pedal 2+. capillary refill normal <2 secs. GI - soft abdomen without tenderness to palpation.no hepatospleenomegaly. Bowel sounds normoactive Neurological - Patient is A/O X 3 . Bilateral upper extremity strength 5/5, bilateral lower extremity strength 5/5, no facial droop, normal speech, no tremor, no sensory deficiets. Ulcer # 1X1 cm ulcer in the left upper forearm with undermined edges. # 1X1 cm ulcer in the left upper groin with undermined edges and oozing white yellowish fluid # 1 X 1 cm ulcer above the left lateral malleolus - no Osler nodes, no Janeway lesions, no splinter hemorrhages in the nails seen. laboratory and microbiology Laboratory Tests 01/17/24 06:00 Test 01/17/24 06:00 Range/Units Serum Glucose 86 74-106 mg/dL Microbiology Date/Time Source Procedure Growth Status 01/16/24 18:25 Voided Urine Urine Culture - Preliminary Resulted 01/16/24 04:05 Blood Blood Culture - Preliminary NO GROWTH AFTER 24 HOURS OF INCUBATION. Resulted Problem List/Assessment/Plan Problem List/Assessment/Plan Assessment and plan # Sepsis likely due to ?Bacteremia # Bacteremia likely from ?insect bite ?wounds # ?splenic abcess - wound culture pending - blood culture after 24 hrs shows no growth - urine culture preliminary shows no growth - CT abdomen pelvis with and without contrast mildly hypodense collection seen along the lateral margin of the spleen measuring 1.9 cm in diameter, scalloping along the lateral margins of the spleen, wedge-shaped defect in the upper spleen - Patient is on IV fluids LR @ 150ml/hr - IV Vancomycin + zosyn - Started doxycycline 100mg bid po - started Fluconazole with loading dose 800mgIV - ID consult placed # Ulcerative colitis Flare up with ?pyoderma gangrenosum - Elevated ESR and CRP - ANCA panel pending - liver panel shows alkaline phosphatase at 356 # ? splenic abscess # ? splenic laceration # ? subscapular hematoma -CT abdomen pelvis with and without contrast mildly hypodense collection seen along the lateral margin of the spleen measuring 1.9 cm in diameter, scalloping along the lateral margins of the spleen, wedge-shaped defect in the upper spleen - Further investigation with CT guided aspiration may be performed - MRI abdomen with contrast to be done tomorrow # Microcytic hypochromic anemia # Iron deficiency ? Thalassemia ? Anemia of chronic disease - Patient given 2 units of PRBC in the ER - Marked microcytosis and hypochromia seen - Peripheral blood smear pending - Hem/Onc consult placed Goals of care discussed with the patient for over 33 minutes. Full code Plan discussed with Dr. Eduardo Plan discussed with: Patient, Other (Mother) My Orders My Orders Orders - ANGELICA CARO RESIDENT Procedure Category Date Status Time RPR LAB 01/17/24 In Process 10:27 Macey; Comprehensive LAB 01/17/24 In Process Panel 10:48 *Consult Dr. Lana Mccollum CONS 01/17/24 Transmitted 11:49 Doxycycline Tablet PHA 01/17/24 In Process (Vibramycin Tablet) 22:00 * Infectious Marielos- CONS 01/17/24 Transmitted K Juan 11:49 Cleanse Wound With BETHANY 01/17/24 In Process Wound Clean 10:32 * Dietary Consult CONS 01/17/24 Transmitted 13:24 Dietary Evaluation Review Recommendations by RD: Decrease Calorie Intake CC Plasma Assessment Blood Product Administration S: [id number] Date of Service: Jan 17, 2024 Billing Provider: RICHIE MILLER MD Common Visit Codes: [id number] INP/OBS CARE(HIGH) ANGELICA CARO RESIDENT Jan 17, 2024 20:28 RICHIE MILLER MD Jan 18, 2024 10:09
[2024-01-17] MEDS: DOXYCYCLINE 100 MG TAB/CAP PO SCH (21:45)
--- NOTE | 2024-01-17 22:30 | DVHSR ---
APPROVED REPORT EXAM: Two-dimensional and M-mode echocardiogram with Doppler and color Doppler. Blood Pressure: 104/59 mmHg INDICATION ? Endocarditis RISK FACTORS Height: 6', Weight: 131 DIMENSIONS LVDd3.7 (3.8-5.7cm)LA (2D)3.1 (1.9-4.0cm)Aortic Root (2.0-3.7cm) LVDs2.6 (2.5-4.0cm)LA (MM) (1.9-4.0cm)Aortic Cusp Exc (1.5-2.0cm) EF (%) 59.0 (55-70%)Rt. Atrium (1.9-4.0cm)Asc. Aorta cm IVSd0.7 (0.7-1.1cm)RV (D) (1.8-2.4cm) PWd0.8 (0.7-1.1cm) Mitral Valve MitralMitral Stenosis E/A ratio0.02D MVAcm2 Aortic Valve Aortic ValveAortic Stenosis LVOT Diameter2.0 (1.8-2.4cm)Doppler AVAcm2 Other Information Quality : Technically LimitedRhythm : Technically limited study due to body habitus and pt sitting up Conclusion Normal left ventricular size and dimension. Normal left ventricular systolic function estimated ejec tion fraction 55%. There is a grade 1 diastolic dysfunction. Normal right ventricular size and dimension. Normal right ventricular systolic function. Normal biatrial size and dimension. Normal aortic valve structure and function. Normal mitral valve structure and function. Normal tricuspid valve structure and function. The pulmonary valve is grossly normal. No pericardial effusion.
[2024-01-18] VITALS (9 sets, daily range): BP systolic 107–159; BP diastolic 65–87; PULSE 94–125; RESP 16–22; TEMP 98–101; O2SAT 94–100
[2024-01-18] MEDS: VANCOMYCIN 1GM/250ML KIT 250 ML IV SCH (03:01)
[2024-01-18 06:17] LABS: Mean Corpuscular Hemoglobin 19.3 pg (28.0-32.0)
[2024-01-18 06:20] LABS: Hemoglobin 8.1 g/dL (13.5-17.5); Mean Corpuscular Hgb Conc. 31.1 g/dL (32.0-36.0); Mean Corpuscular Volume 62.2 fL (80.0-100.0); Platelet Count (auto) 480 10^3/uL (140-450); Red Blood Cells 4.18 10^6/uL (4.5-5.90); White Blood Cell 25.9 10^3/uL (4.4-10.8)
[2024-01-18 06:34] LABS: Band Neutrophils % (manual) 0; Basophils % (manual) 0 (0.0-2.0); Blast Cells 0; Metamyelocytes % 0; Myelocytes % 0; Promyelocytes % 0; Reactive Lymphocytes 0
[2024-01-18 06:46] LABS: Alanine Aminotransferase 27 U/L (7-40); Anion Gap 7 (5-15); BUN/Creatinine Ratio 6.2 (10.0-20.0); Calcium 8.7 mg/dL (8.7-10.4); Carbon Dioxide 25 mmol/L (20-31); Chloride 100 mmol/L (98-107); Glucose 106 mg/dL (74-106); Potassium 3.7 mmol/L (3.5-5.1)
[2024-01-18 06:47] LABS: Aspartate Aminotransferase 39 U/L (13-40); Bilirubin, Total 0.6 mg/dL (0.2-1.0); Total Protein 6.5 g/dL (5.7-8.2)
[2024-01-18 06:48] LABS: Albumin 2.7 g/dL (3.2-4.8); Alkaline Phosphatase 325 U/L (46-116); Blood Urea Nitrogen 8 mg/dL (9-23); Sodium 132 mmol/L (136-145)
[2024-01-18 07:43] LABS: Eosinophils % (manual) 1 (0-7); Lymphocytes % (manual) 10 (10.0-50.0); Monocytes % (manual) 8 (0-12)
[2024-01-18 07:44] LABS: Anisocytosis Moderate; Hypochromia Moderate; Platelet Estimate Increased
[2024-01-18 08:06] LABS: RPR Non Reactive (Non Reactive)
[2024-01-18] MEDS: ERGOCALCIFEROL 50,000 UNIT(1.25MG) CAP PO SCH (09:12)
--- NOTE | 2024-01-18 09:46 | DVH ---
CLINICAL INFORMATION: Abnormal CT. Fluid collections in the spleen. TECHNIQUE: Multi sequence multi planar MRI images of the abdomen were obtained prior to and after the uneventful administration of 15 mL Clariscan contrast. COMPARISON: CT dated 01/16/2024. FINDINGS: Complex fluid collection along the superior and lateral aspects of the spleen, appears to b e mostly subcapsular measuring up to 8.0 cm in AP dimension, 2.6 cm in transverse dimension, and 8.6 cm in craniocaudal dimension. There are areas of T1 hyperintense signal within the collections on the precontrast images, suggesting hemorrhage. There is no internal enhancement associated with the alyssa ection. Mild rim enhancement noted. Additional smaller fluid collections are seen in the spleen, erin suring up to 1.6 cm, 1.5 cm, and 1.0 cm, respectively. There is also a small amount of mildly complex fluid adjacent to the spleen. Areas of heterogeneous signal and enhancement also noted in the spleen , may be sequela of laceration, if there has been recent trauma/ injury. There is a small left pleura l fluid collection also noted. Suspected trace free fluid elsewhere in the abdomen, including adjacen t to the kidneys and liver. The liver, pancreas, adrenal glands, and kidneys are unremarkable. No gallstones visualized in the ga llbladder. No abdominal aortic aneurysm. No other significant abnormality identified. IMPRESSION: 1. Complex fluid collections in the spleen, most likely hematomas with suspected splenic laceration. Correlate with clinical findings. 2. Additional areas of trace free fluid in the abdomen also noted and small left pleural effusion.
[2024-01-18] MEDS ORDERED: methylPREDNISolone SOD SUCC 40 MG/ML VL IV SCH (10:00)
[2024-01-18 13:06] LABS: Anti-Centromere B Antibody <0.2 AI (0.0-0.9); Anti-Jo-1 Antibody <0.2 AI (0.0-0.9); Anti-dsDNA Antibody <1 IU/mL (0-9); Antichromatin Antibody <0.2 AI (0.0-0.9); Antiscleroderma-70 Antibody <0.2 AI (0.0-0.9); RNP Antibody <0.2 AI (0.0-0.9); Sjogren's Anti-SS-A Antibody <0.2 AI (0.0-0.9); Sjogren's Anti-SS-B Antibody <0.2 AI (0.0-0.9); Smith Antibody <0.2 AI (0.0-0.9)
[2024-01-18] MEDS: FLUCONAZOLE 200MG/100ML 100 ML IV SCH (13:23)
[2024-01-18] MEDS: PIPERACILLIN-TAZOB 3.375GM 100 ML IV SCH (17:11)
--- NOTE | 2024-01-18 21:39 | DVHPNRES ---
Progress Note Date Seen: Jan 18, 2024 Resident Creating Document: ANGELICA CARO RESIDENT Medical Necessity Reason Pt with a Central, PICC or Fol: No Subjective Review of Systems Patient was seen and examined at the bedside. A/O x 4. Patient appears weak in bed Does not report abdominal pain, nausea or vomiting Patient had a Tmax 100.1F, blood pressure 124/70mmhg. Tachycardia with HR ranging from 100-120bpm. On room air MRI abdomen with contrast done which shows Objective vital signs Vital Sign Date Time Temp Pulse Resp B/P (MAP) Pulse Ox O2 Delivery O2 Flow Rate FiO2 01/18/24 17:00 98.0 119 22 132/79 (96) 100 98.0 01/18/24 08:10 Room Air* 0 21 Total Intake and Output 01/17/24 01/17/24 01/18/24 15:00 23:00 07:00 Intake Total 1084 ml 1351.5 ml 2050 ml Output Total 1800 ml 1200 ml Balance 1084 ml -448.5 ml 850 ml medications Current Medications Medications Dose Ordered Sig/Latoya Route Start Time Stop Time Status Last Admin Dose Admin Nitroglycerin 0.4 mg Q5MINP PRN SL 01/16/24 05:15 Morphine Sulfate 2 mg Q30M PRN IV 01/16/24 05:15 Pantoprazole Sodium 40 mg DAILY IV 01/16/24 10:00 01/18/24 09:12 40 MG Vancomycin HCl 0 ml @ 0 mls/hr UD IV 01/16/24 11:00 Acetaminophen 650 mg Q6HP PRN PO 01/16/24 11:00 01/18/24 19:44 650 MG Lactated Ringer's 1,000 ml @ 150 mls/hr Q6H40M IV 01/16/24 18:30 01/18/24 15:54 150 MLS/HR Ergocalciferol 50,000 unit Q7D PO 01/18/24 09:00 01/18/24 09:12 50,000 UNIT Fluconazole 100 ml @ 100 mls/hr 10,11 IV 01/19/24 10:00 Piperacillin Sod/ Tazobactam Sod 100 ml @ 25 mls/hr Q6H IV 01/18/24 17:00 01/18/24 17:11 25 MLS/HR Examination Physical Examination Gen - no pallor, no icterus, no cyanosis, no clubbing, no LAD, no edema . Skin - Patients skin is warm and dry. HEENT - normocephalic, atraumatic, dry mucous membranes. Neck - full ROM, no LAD, no JVD Pulmonary - B/L vesicular breath sounds. no crackles , no wheezing, no stridor. cardiovascular - normal S1,S2 heard. no murmurs heard. peripheral pulses normal radial 2+, pedal 2+. capillary refill normal <2 secs. GI - soft abdomen without tenderness to palpation.no hepatospleenomegaly. Bowel sounds normoactive Neurological - Patient is A/O X 3 . Bilateral upper extremity strength 5/5, bilateral lower extremity strength 5/5, no facial droop, normal speech, no tremor, no sensory deficiets. Ulcer # 1X1 cm ulcer in the left upper forearm with undermined edges. # 1X1 cm ulcer in the left upper groin with undermined edges and oozing white yellowish fluid and smaller ulcer seen adjacent to it # 1 X 1 cm ulcer above the left lateral malleolus - no Osler nodes, no [place] lesions, no splinter hemorrhages in the nails seen. laboratory and microbiology Laboratory Tests 01/18/24 05:25 Test 01/18/24 05:25 Range/Units Serum Glucose 106 74-106 mg/dL Microbiology Date/Time Source Procedure Growth Status 01/17/24 11:14 Groin Gram Stain - Final Resulted 01/17/24 11:14 Groin Wound Culture - Preliminary Resulted 01/16/24 18:25 Voided Urine Urine Culture - Preliminary Resulted 01/16/24 04:05 Blood Blood Culture - Preliminary NO GROWTH AFTER 48 HOURS OF INCUBATION. Resulted Problem List/Assessment/Plan Problem List/Assessment/Plan Assessment and plan # Sepsis likely due to ?Bacteremia # Bacteremia likely from ?insect bite ?wounds # ?splenic abcess - wound culture pending - blood culture after 24 hrs shows no growth - urine culture preliminary shows no growth - CT abdomen pelvis with and without contrast mildly hypodense collection seen along the lateral margin of the spleen measuring 1.9 cm in diameter, scalloping along the lateral margins of the spleen, wedge-shaped defect in the upper spleen - Patient is on IV fluids LR @ 150ml/hr - IV Vancomycin + zosyn - doxycycline 100mg bid po - on fluconazole 400mg IV daily - ID consult placed # Ulcerative colitis Flare up with ?pyoderma gangrenosum - Elevated ESR and CRP - ANCA panel pending - liver panel shows alkaline phosphatase at 356 # ? splenic abscess # ? splenic laceration # ? subscapular hematoma -CT abdomen pelvis with and without contrast mildly hypodense collection seen along the lateral margin of the spleen measuring 1.9 cm in diameter, scalloping along the lateral margins of the spleen, wedge-shaped defect in the upper spleen - Further investigation with CT guided aspiration may be performed - MRI abdomen with contrast to be done tomorrow # Microcytic hypochromic anemia # Iron deficiency ? Thalassemia ? Anemia of chronic disease - Patient given 2 units of PRBC in the ER - Marked microcytosis and hypochromia seen - Peripheral blood smear pending - Hem/Onc consult placed 01/17 - ID consulted with Dr. Martinez, recommended - stop doxycycline - MR abdomen with contrast showed IMPRESSION: 1. Complex fluid collections in the spleen, most likely hematomas with suspected splenic laceration. Correlate with clinical findings. 2. Additional areas of trace free fluid in the abdomen also noted and small left pleural effusion. - Patient continued on vancomycin , zosyn and fluconazole. IV fluids @ 150ml/hr Goals of care discussed with the patient for over 33 minutes. Full code Plan discussed with Dr. Eduardo Plan discussed with: Patient, Other (sister) My Orders My Orders Orders - ANGELICA CARO RESIDENT Procedure Category Date Status Time Ergocalciferol PHA 01/18/24 In Process (Vitamin D 50,000 09:00 Fluconazole PHA 01/19/24 In Process 200mg/100ml (Diflucan 10:00 Dietary NOTICE 01/18/24 Transmitted Recommendations 11:54 * Radiologist Consult CONS 01/18/24 Transmitted 15:06 Dietary Evaluation Review Recommendations by RD: Decrease Calorie Intake Comments: 1) Consider HAROON 1 pkt BID for wounds 2) Continue current plan of care Expected Outcomes/Goals: F/U in 3-5 days CC Plasma Assessment Blood Product Administration S: [id number] Date of Service: Jan 18, 2024 Billing Provider: RICHIE MILLER MD Common Visit Codes: [id number] INP/OBS CARE(HIGH) ANGELICA CARO RESIDENT Jan 18, 2024 21:39 RICHIE MILLER MD Jan 19, 2024 09:21
--- NOTE | 2024-01-18 23:48 | DVHINCON2 ---
"Date of service: Jan 17, 2024 Family History: Patient reports no known family medical history. Allergies: Coded Allergies: NO KNOWN ALLERGIES (Unverified , 01/16/24) Current Medications Current Medications Medications (Trade) Dose Ordered Sig/Latoya Route PRN Reason Start Time Stop Time Status Last Admin Methylprednisolone Sodium Succinate (Solu Medrol) 40 mg DAILY IV 01/18/24 10:00 01/17/24 11:46 DC Vancomycin HCl 250 ml @ 250 mls/hr Q8H IV 01/18/24 03:00 01/18/24 17:38 DC 01/18/24 11:27 Ergocalciferol (Vitamin D 50,000 Unit) 50,000 unit Q7D PO 01/18/24 09:00 01/18/24 09:12 Fluconazole 100 ml @ 100 mls/hr 10,11 IV 01/19/24 10:00 Fluconazole 100 ml @ 100 mls/hr Q1HR IV 01/18/24 12:00 01/18/24 13:59 DC 01/18/24 15:00 Piperacillin Sod/ Tazobactam Sod 100 ml @ 25 mls/hr Q6H IV 01/18/24 17:00 01/18/24 23:08 Vital Signs Vital Signs Date Time Temp Pulse Resp B/P (MAP) Pulse Ox O2 Delivery O2 Flow Rate FiO2 01/18/24 21:00 101.0 125 18 117/65 (82) 95 101.0 01/18/24 20:00 Room Air* 0 21 Labs/Diagnostic Data Labs Test 01/18/24 10:59 01/18/24 05:25 01/18/24 00:15 01/17/24 14:55 Range/Units POC Glucose 142 H 70-106 mg/dl White Blood Count 25.9 H 4.4-10.8 10^3/uL Red Blood Count 4.18 L 4.5-5.90 10^6/uL Hemoglobin 8.1 L 13.5-17.5 g/dL Hematocrit 26.0 L 41.0-53.0 % Mean Corpuscular Volume 62.2 L 80.0-100.0 fL Mean Corpuscular Hemoglobin 19.3 L 28.0-32.0 pg Mean Corpuscular Hemoglobin Concent 31.1 L 32.0-36.0 g/dL Red Cell Distribution Width 28.0 H 11.8-14.3 % Platelet Count 480 H 140-450 10^3/uL Mean Platelet Volume 8.2 6.9-10.8 fL Neutrophils (%) (Auto) 37.0-80.0 % Lymphocytes (%) (Auto) 10.0-50.0 % Monocytes (%) (Auto) 0.0-12.0 % Basophils (%) (Auto) 0.0-2.0 % Neutrophils # (Auto) 1.6-8.6 10 ^3/uL Lymphocytes # (Auto) 0.4-5.4 10 ^3/uL Monocytes # (Auto) 0-1.3 10 ^3/uL Differential Total Cells Counted 100.0 100 Neutrophils % (Manual) 81 H 37.0-80.0 Band Neutrophils % (Manual) 0 Lymphocytes % (Manual) 10 10.0-50.0 Monocytes % (Manual) 8 0-12 Eosinophils % (Manual) 1 0-7 Basophils % (Manual) 0 0.0-2.0 Metamyelocytes % (manual) 0 Myelocytes % (Manual) 0 Promyelocytes % (Manual) 0 Blast Cells % (Manual) 0 Reactive Lymphocytes 0 Platelet Estimate Increased Hypochromasia (manual) Moderate Anisocytosis (manual) Moderate Microcytosis Moderate Sodium Level 132 L 136-145 mmol/L Potassium Level 3.7 3.5-5.1 mmol/L Chloride Level 100 98-107 mmol/L Carbon Dioxide Level 25 20-31 mmol/L Anion Gap 7 5-15 Blood Urea Nitrogen 8 L 9-23 mg/dL Creatinine 1.29 0.700-1.30 mg/dL Glomerular Filtration Rate Calc 78 >90 mL/min BUN/Creatinine Ratio 6.2 L 10.0-20.0 Serum Glucose 106 74-106 mg/dL Calcium Level 8.7 8.7-10.4 mg/dL Total Bilirubin 0.6 0.2-1.0 mg/dL Aspartate Amino Transferase (AST) 39 13-40 U/L Alanine Aminotransferase (ALT) 27 7-40 U/L Alkaline Phosphatase 325 H 46-116 U/L Total Protein 6.5 5.7-8.2 g/dL Albumin 2.7 L 3.2-4.8 g/dL Stool Occult Blood Positive Negative Stool Occult Blood Sample #3 Negative Vancomycin Level Trough 13.5 H 5-10 ug/mL Test 01/17/24 06:00 01/16/24 18:25 01/16/24 06:39 01/16/24 04:05 Range/Units Eosinophils (%) (Auto) 1.8 0.0-7.0 % Eosinophils # (Auto) 0.4 0-0.8 10 ^3/uL Basophils # (Auto) 0.1 0-0.2 10 ^3/uL Nucleated Red Blood Cells 0.1 % Reticulocyte Count (auto) 1.84 H 0.5-1.5 % Magnesium Level 1.7 1.6-2.6 mg/dL Gamma Glutamyl Transpeptidase 219 H <73 U/L Lactate Dehydrogenase 135 120-246 U/L Vitamin B12 Level 1406 H 211-911 pg/mL Vitamin D 25-Hydroxy 29.0 L 30.0-100 ng/mL Anti-Nuclear Antibody Comment Comment . GRACIE-1 Antibody <0.2 0.0-0.9 AI SS-A/Ro Antibody <0.2 0.0-0.9 AI SS-B/La Antibody <0.2 0.0-0.9 AI Sm Antibody <0.2 0.0-0.9 AI BARREL CUTTER Antibody <0.2 0.0-0.9 AI Scl-70 (Scleroderma) Antibody <0.2 0.0-0.9 AI Anti-Double Strand DNA Antibody <1 0-9 IU/mL Chromatin Antibody <0.2 0.0-0.9 AI Centromere B Antibody <0.2 0.0-0.9 AI Rapid Plasma Reagin Non reactive Non Reactive HIV (1&2) Antibody Negative Negative Urine Color Yellow Yellow Urine Clarity Clear Clear Urine pH 5.5 5.0-9.0 Urine Specific [place] 1.050 H 1.001-1.035 Urine Protein Trace H Negative Urine Ketones Trace Negative Urine Blood Negative Negative /uL Urine Nitrite Negative Negative Urine Bilirubin Negative Negative Urine Urobilinogen Normal Negative mg/dL Urine Leukocyte Esterase Negative Negative /uL Urine RBC 1 0 - 3 /hpf Urine WBC 3 0 - 3 /hpf Urine Squamous Epithelial Cells Few <5 /hpf Urine Bacteria None seen None Seen /hpf Urine Mucus Few None Seen Urine Glucose Normal Normal mg/dL Urine Opiates Screen Neg NEGATIVE Urine Fentanyl Screen Neg NEGATIVE Urine Barbiturates Screen Neg NEGATIVE Urine Phencyclidine Screen Neg NEGATIVE Urine Amphetamines Screen Neg NEGATIVE Urine Benzodiazepines Screen Neg NEGATIVE Urine Cocaine Screen Neg NEGATIVE Urine Cannabinoids Screen Neg NEGATIVE Erythrocyte Sedimentation Rate 96 H 0-20 mm/hr Haptoglobin 340 H 17-317 mg/dL Prothrombin Time 13.6 H 9.3-11.8 sec Prothrombin Time INR 1.31 H 0.9-1.15 Activated Partial Thromboplast Time 29.8 24.5-34.5 SEC Iron Level 11 L 65-175 ug/dL Ferritin 23.4 22-322 ng/mL C-Reactive Protein High Sensitivity 15.29 H <1.0 mg/dL Thyroid Stimulating Hormone (TSH) 3.10 0.55-4.78 uIU/mL Plasma/Serum Blood Alcohol < 3.0 <10 mg/dL Hepatitis B Surface Antigen Negative Negative Hepatitis B Surface Antibody Negative Negative Hepatitis C Antibody Negative Negative Lactic Acid Level 1.1 0.4-2.0 mmol/L Test 01/16/24 02:30 Range/Units Large Platelets Few Poikilocytosis (manual) Slight Target Cells Few Schistocytes Few Microbiology Date/Time Source Procedure Growth Status 01/17/24 11:14 Groin Gram Stain - Final Resulted 01/17/24 11:14 Groin Wound Culture - Preliminary Resulted 01/16/24 18:25 Voided Urine Urine Culture - Preliminary Resulted 01/16/24 04:05 Blood Blood Culture - Preliminary NO GROWTH AFTER 48 HOURS OF INCUBATION. Resulted Problems(with codes): (1) Sepsis (2) Ulcerative colitis (3) Cellulitis (4) Wounds, multiple open, arm (5) Symptomatic anemia Plan/Recommendation ASSESSMENT AND PLAN: ID Problem List: - Pyoderma gangrenosum - Suspected splenic abscess vs. hematoma - Inflammatory bowel disease (ulcerative colitis) - Leukocytosis - Sepsis Assessment: This is a 28 y.o. male with a past medical history of osteoporosis and inflammat ory bowel disease (ulcerative colitis), who presents with painful ulcers on his left forearm and groin area. The patient reports that these wounds developed ulcers, which ruptured and are painful. He has been feeling unwell for the last three days prior to admission. He is originally from [place] and recently traveled to [facility] to visit family. He endorses being bitten by bugs during his travel but is unsure of the type of insects. On examination, the patient appears pale and malnourished with a low BMI of 19.9. Vital signs are notable for fever (Tmax 101.5F) and tachycardia (HR 125 bpm). Physical exam reveals wounds on the left forearm and groin with clear boundaries, violaceous borders, tender, draining exudate at the center. Imaging studies include: - CT abdomen and pelvis showing a mildly hyperdense collection on the lateral margin of the spleen measuring 1.9 cm in diameter with scalloping along the lateral margins and a wedge defect in the upper spleen. Findings may represent splenic laceration or subcapsular hematoma; splenic abscess is not entirely excluded. Several nonspecific hypodensities within the spleen measuring 1.1 cm may represent simple cysts. MRI of the abdomen is recommended. - Ultrasound of the left forearm revealing a 0.6 x 0.5 x 0.6 cm cystic mass-like structure, which could represent a sebaceous cyst. - Chest X-ray showing no acute disease. - Blood cultures are no growth to date. Laboratory studies reveal leukocytosis. Plan: - Continue vancomycin and Zosyn for broad-spectrum coverage. - Order MRI of the abdomen to further evaluate splenic findings and rule out abscess. - If splenic abscess is confirmed, consider initiating steroid therapy for suspected pyoderma gangrenosum. - Hold off on biopsy of skin lesions, as biopsy may exacerbate pyoderma gangrenosum. - Follow up on wound cultures and adjust antibiotics as necessary. - Monitor vital signs and laboratory studies for any changes. Isolation Precautions: Standard Assessment and plan were discussed with the patient as written above. Plan is subject to change pending incorporation of new incoming information/diagnostics. Updates may be added as addendum at the bottom (OR TOP) of this note. Thank you for the interesting consult. ID will continue to follow. Please contact Infectious Disease for any questions or concerns. Ana Alarcon M.D. [facility] Ph: ? History: The patient's chart and medications were reviewed in detail, and the patient was seen and examined. History obtained from: patient Darren Brandon is a 28 y.o. male with a past medical history of osteoporosis and inflammatory bowel disease (ulcerative colitis), who presents with painful ulcers on his left forearm and groin area. He reports that these wounds developed ulcers, which ruptured and are painful. He has been feeling unwell for the last three days prior to admission. He is originally from [place] and recently traveled to [facility] to visit family. He endorses being bitten by bugs during his travel but is unsure of the type of insects. Review of Systems: A complete 10-system review of systems was completed and negative except as noted in the HPI or here. ROS: - CONSTITUTIONAL: Reports fevers and feeling unwell for the last three days. - HEENT: Denies changes in vision and hearing. - RESPIRATORY: Denies shortness of breath and cough. - CV: Denies palpitations and chest pain. - GI: Denies abdominal pain, nausea, vomiting, and diarrhea. - : Denies dysuria and urinary frequency. - MSK: Denies myalgia and joint pain. - SKIN: Reports open lesions on the left forearm and groin area. - NEUROLOGICAL: Denies headache and syncope. - PSYCHIATRIC: Denies recent changes in mood, anxiety, and depression. Past Medical History: Diagnosis | Date - | Osteoporosis | Inflammatory bowel disease (ulcerative colitis) | Past Surgical History: History reviewed. No pertinent surgical history. Home Medications: Not currently on any medications. Allergies: No known allergies. Family History: History not provided. Social History: - Marital status: Not provided. - Occupation: Not provided. - Tobacco Use: Not provided. - Alcohol Use: Not provided. - Drug Use: Not provided. Objective: Vital Signs on Arrival: - Temp: 99.3 F - BP: 121/72 mmHg - Pulse: 125 bpm - Resp: 16 breaths per minute - SpO2: Not provided Most Recent Vital Signs: - Temp: 101.5 F - BP: 117/65 mmHg - Pulse: 118 bpm - Resp: Not provided - SpO2: 95% on room air Admission Weight: Weight: Not provided?BMI: 19.9 kg/m Physical Exam: - General: Pale, appears malnourished. - Neck: Supple. No masses. - HEENT: PERRL. Normal lids and conjunctiva. Moist mucous membranes. Oropharynx without lesions, exudates, or excessive erythema. Normal appearance of the external aspects of the nose and ears. - Heart: Regular rhythm, normal rate. No murmur. No lower extremity edema. - Lungs: Normal respiratory effort. Clear to auscultation bilaterally. No wheezes. No crackles. - Abdomen: Soft. Non-tender. Non-distended. No masses or abdominal hernia. - Msk: No digital cyanosis. Normal strength and tone in all four limbs. - Skin: Warm and dry. Wounds on the left forearm and groin with clear boundaries, violaceous borders, tender, draining exudate at the center. - Neuro: Alert. No facial droop or slurred speech. Extraocular movements intact. Sensation intact to soft touch in all four limbs. - Psych: Appropriate mood. Full affect. Oriented to person, place, time, and situation. - Lines: None Diagnostic Studies: Available diagnostic studies were reviewed personally. Significant relevant results and findings are outlined below or addressed in the Assessment and Plan above. Pertinent Imaging: - CT Abdomen and Pelvis: - Mildly hyperdense collection on the lateral margin of the spleen measuring 1.9 cm in diameter. This collection does not appear to be simple fluid. There is scalloping along the lateral margins of the spleen and a wedge defect in the upper spleen. Findings may represent splenic laceration or subcapsular hematoma; splenic abscess is not entirely excluded. Several nonspecific hypodensities within the spleen measuring 1.1 cm may represent simple cysts. MRI abdomen is recommended. - Small left pleural effusion. - Ultrasound of Left Forearm: - A 0.6 x 0.5 x 0.6 cm cystic mass-like structure within the left forearm, which could represent a sebaceous cyst. - Chest X-ray: - No acute disease. Laboratory Studies: - Blood Cultures: No growth to date. - Lab Results: Leukocytosis noted. - Plan discussed with: Patient ANA ALARCON MD Jan 18, 2024 23:48"
--- NOTE | 2024-01-18 23:48 | DVHPN2 ---
Consult Progress Note Date Seen: Jan 18, 2024 Subjective Patient reports: Feels better (ongoing fevers as high as 101) Objective vital signs Vital Sign Date Time Temp Pulse Resp B/P (MAP) Pulse Ox O2 Delivery O2 Flow Rate FiO2 01/18/24 21:00 101.0 125 18 117/65 (82) 95 101.0 01/18/24 20:00 Room Air* 0 21 Total Intake and Output 01/17/24 01/17/24 01/18/24 15:00 23:00 07:00 Intake Total 1084 ml 1351.5 ml 2050 ml Output Total 1800 ml 1200 ml Balance 1084 ml -448.5 ml 850 ml medications Current Medications Medications Dose Ordered Sig/Latoya Route Start Time Stop Time Status Last Admin Dose Admin Nitroglycerin 0.4 mg Q5MINP PRN SL 01/16/24 05:15 Morphine Sulfate 2 mg Q30M PRN IV 01/16/24 05:15 Pantoprazole Sodium 40 mg DAILY IV 01/16/24 10:00 01/18/24 09:12 Vancomycin HCl 0 ml @ 0 mls/hr UD IV 01/16/24 11:00 Acetaminophen 650 mg Q6HP PRN PO 01/16/24 11:00 01/18/24 19:44 Lactated Ringer's 1,000 ml @ 150 mls/hr Q6H40M IV 01/16/24 18:30 01/18/24 23:08 Ergocalciferol 50,000 unit Q7D PO 01/18/24 09:00 01/18/24 09:12 Fluconazole 100 ml @ 100 mls/hr 10,11 IV 01/19/24 10:00 Piperacillin Sod/ Tazobactam Sod 100 ml @ 25 mls/hr Q6H IV 01/18/24 17:00 01/18/24 23:08 PHYSICAL EXAM: - GENERAL: Alert and oriented x 3. No acute distress. Well-nourished. - EYES: EOMI. Anicteric. - HENT: Moist mucous membranes. No scleral icterus. No cervical lymphadenopathy. - LUNGS: Clear to auscultation bilaterally. No accessory muscle use. - CARDIOVASCULAR: Regular rate and rhythm. No murmur. No JVD. - ABDOMEN: Soft, non-tender and non-distended. No palpable masses. - EXTREMITIES: No edema. Non-tender.SKIN: No rashes or lesions. Warm. small ulceration painful on groin, elbow, ankles - NEUROLOGIC: No focal neurological deficits. CN II-XII grossly intact, but not individually tested. - PSYCHIATRIC: Cooperative. Appropriate mood and affect. laboratory and microbiology Laboratory Tests 01/18/24 05:25 Test 01/18/24 05:25 Range/Units Serum Glucose 106 74-106 mg/dL Problem List/Assessment/Plan Problem List/Assessment/Plan (1) Sepsis (2) Ulcerative colitis (3) Cellulitis (4) Wounds, multiple open, arm (5) Symptomatic anemia Plan/Recommendation ASSESSMENT AND PLAN: ID Problem List: - Pyoderma gangrenosum - Suspected splenic abscess vs. hematoma - Inflammatory bowel disease (ulcerative colitis) - Leukocytosis - Sepsis Assessment: This is a 28 y.o. male with a past medical history of osteoporosis and inflammatory bowel disease (ulcerative colitis), who presents with painful ulcers on his left forearm and groin area. The patient reports that these wounds developed ulcers, which ruptured and are painful. He has been feeling unwell for the last three days prior to admission. He is originally from [place] and recently traveled to [facility] to visit family. He endorses being bitten by bugs during his travel but is unsure of the type of insects. On examination, the patient appears pale and malnourished with a low BMI of 19.9. Vital signs are notable for fever (Tmax 101.5F) and tachycardia (HR 125 bpm). Physical exam reveals wounds on the left forearm and groin with clear boundaries, violaceous borders, tender, draining exudate at the center. Imaging studies include: - CT abdomen and pelvis showing a mildly hyperdense collection on the lateral margin of the spleen measuring 1.9 cm in diameter with scalloping along the lateral margins and a wedge defect in the upper spleen. Findings may represent splenic laceration or subcapsular hematoma; splenic abscess is not entirely excluded. Several nonspecific hypodensities within the spleen measuring 1.1 cm may represent simple cysts. MRI of the abdomen is recommended. - Ultrasound of the left forearm revealing a 0.6 x 0.5 x 0.6 cm cystic mass-like structure, which could represent a sebaceous cyst. - Chest X-ray showing no acute disease. - Blood cultures are no growth to date. Laboratory studies reveal leukocytosis. MRI abd w/. 1.9 cm hematoma of spleen - suspect pyodermic involvement of viscera likely aseptic but cannot rule out infection Plan: - Continue vancomycin and Zosyn for broad-spectrum coverage. - Recommend biopsy of skin lesions, as biopsy may exacerbate pyoderma gangrenosum. - after biopsy, consider initiating steroid therapy for suspected pyoderma gangrenosum. - dermatology and GI consultation recommended. - Follow up on wound cultures and adjust antibiotics as necessary. - Monitor vital signs and laboratory studies for any changes. Isolation Precautions: Standard Assessment and plan were discussed with the patient as written above. Plan is subject to change pending incorporation of new incoming information/diagnostics. Updates may be added as addendum at the bottom (OR TOP) of this note. Thank you for the interesting consult. ID will continue to follow. Please contact Infectious Disease for any questions or concerns. Ana Martinez M.D. Plan discussed with: Patient Dietary Evaluation Review Recommendations by RD: Decrease Calorie Intake Comments: 1) Consider HAROON 1 pkt BID for wounds 2) Continue current plan of care Expected Outcomes/Goals: F/U in 3-5 days CC Plasma Assessment Blood Product Administration S: 1540 ANA MARTINEZ MD Jan 18, 2024 23:48
[2024-01-19] VITALS (9 sets, daily range): BP systolic 113–125; BP diastolic 63–76; PULSE 107–124; RESP 16–20; TEMP 98.5–102.2; O2SAT 94–100
[2024-01-19 07:19] LABS: Alanine Aminotransferase 30 U/L (7-40); Anion Gap 6 (5-15); Aspartate Aminotransferase 36 U/L (13-40); BUN/Creatinine Ratio 7.7 (10.0-20.0); Bilirubin, Total 0.7 mg/dL (0.2-1.0); Blood Urea Nitrogen 9 mg/dL (9-23); Carbon Dioxide 25 mmol/L (20-31); Chloride 100 mmol/L (98-107); Glucose 101 mg/dL (74-106); Potassium 3.9 mmol/L (3.5-5.1); Total Protein 6.4 g/dL (5.7-8.2)
[2024-01-19 07:26] LABS: Albumin 2.6 g/dL (3.2-4.8); Alkaline Phosphatase 323 U/L (46-116); Calcium 8.5 mg/dL (8.7-10.4); Sodium 131 mmol/L (136-145)
[2024-01-19 09:08] LABS: Hemoglobin 7.9 g/dL (13.5-17.5); Red Blood Cells 4.17 10^6/uL (4.5-5.90)
[2024-01-19 09:11] LABS: Hematocrit 26.1 % (41.0-53.0); Mean Corpuscular Hgb Conc. 30.3 g/dL (32.0-36.0); Mean Corpuscular Volume 62.7 fL (80.0-100.0); Platelet Count (auto) 517 10^3/uL (140-450); White Blood Cell 28.3 10^3/uL (4.4-10.8)
[2024-01-19 09:38] LABS: Red Cell Distribution Width 29.1 % (11.8-14.3)
[2024-01-19 09:39] LABS: Band Neutrophils % (manual) 0; Basophils % (manual) 0 (0.0-2.0); Blast Cells 0; Eosinophils % (manual) 0 (0-7); Metamyelocytes % 0; Myelocytes % 0; Promyelocytes % 0; Reactive Lymphocytes 0
[2024-01-19] MEDS: FLUCONAZOLE 200MG/100ML 100 ML IV SCH (10:03)
[2024-01-19 11:10] LABS: Anisocytosis Moderate; Hypochromia Moderate; Platelet Estimate Increased
[2024-01-19 11:11] LABS: Lymphocytes % (manual) 4 (10.0-50.0); Monocytes % (manual) 4 (0-12)
[2024-01-19] MEDS: VANCOMYCIN 1GM/250ML KIT 250 ML IV SCH (11:21)
--- NOTE | 2024-01-19 12:06 | DVH ---
CHEST RADIOGRAPH Indication: shortness of breath Technique: Single frontal view of the chest was obtained Comparison: XY CHEST XRAY 1 VIEW on DOS: 01/16/24 FINDINGS: Lines and Tubes: None Lungs: Left basilar opacity. Pleura: Moderate left pleural effusion with right basilar opacity. No pneumothorax. Cardiomediastinal contours: Unremarkable Bones: No acute osseous abnormality. IMPRESSION: Moderate left pleural effusion with left basilar opacity.
--- NOTE | 2024-01-19 12:13 | DVH ---
ULTRASOUND ABDOMEN LIMITED INDICATION: elevated ALP and GGT TECHNIQUE: Multiple real-time sonographic images of the abdomen were obtained. COMPARISON: None FINDINGS: The visualized liver parenchyma appears homogenous . No discrete hepatic lesion or intrahepati c biliary ductal dilatation is identified. The gallbladder is mildly contracted. There is no evidence of gallstones, gallbladder wall thickenin g or pericholecystic fluid. The common biliary duct is not dilated. The right kidney measures 12 cm length. No sonographic evidence of nephrolithiasis or hydronephrosi s. Visualized portions of the pancreas appears within normal limits. IMPRESSION: 1. Mildly contracted gallbladder without evidence of gallstones. HS:Y
[2024-01-19] MEDS ORDERED: CEFEPIME 1GM/ 50ML 50 ML IV ONE (12:15)
[2024-01-19] MEDS ORDERED: CEFEPIME 2GM/50ML NS 50 ML IV ONE (12:15)
[2024-01-19] MEDS: ACETAMINOPHEN 325 MG TAB PO SCH (13:20)
[2024-01-19] MEDS: metroNIDAZOLE 500MG/100ML 100 ML IV SCH (14:50)
[2024-01-19 15:06] LABS: Antimyeloperoxidase (MPO) Ab <0.2 units (0.0-0.9); Antiproteinase 3 (PR-3) Ab 2.3 units (0.0-0.9)
[2024-01-19] MEDS: CEFEPIME 2GM/50ML NS 50 ML IV ONE (16:02)
--- NOTE | 2024-01-19 18:38 | DVHINCON2 ---
Date of service: Jan 19, 2024 Family History: Patient reports no known family medical history. Allergies: Coded Allergies: NO KNOWN ALLERGIES (Unverified , 01/16/24) Current Medications Current Medications Medications (Trade) Dose Ordered Sig/Latoya Route PRN Reason Start Time Stop Time Status Last Admin Fluconazole 100 ml @ 100 mls/hr 10,11 IV 01/19/24 10:00 01/19/24 11:22 Vancomycin HCl 250 ml @ 250 mls/hr Q8H IV 01/19/24 11:00 01/19/24 18:24 Acetaminophen (Tylenol Tablet) 650 mg Q6HR PO 01/19/24 12:00 01/19/24 16:57 Cefepime HCl 50 ml @ 12.5 mls/hr Q8HR IV 01/19/24 22:00 Metronidazole 100 ml @ 100 mls/hr Q8HR IV 01/19/24 14:00 01/19/24 14:50 Vital Signs Vital Signs Date Time Temp Pulse Resp B/P (MAP) Pulse Ox O2 Delivery O2 Flow Rate FiO2 01/19/24 17:46 99.0 01/19/24 17:00 124 18 113/64 (80) 94 01/19/24 08:00 Room Air* 0 21 Labs/Diagnostic Data Labs Test 01/19/24 08:33 01/19/24 05:58 01/18/24 10:59 01/18/24 00:15 Range/Units White Blood Count 28.3 H 4.4-10.8 10^3/uL Red Blood Count 4.17 L 4.5-5.90 10^6/uL Hemoglobin 7.9 L 13.5-17.5 g/dL Hematocrit 26.1 L 41.0-53.0 % Mean Corpuscular Volume 62.7 L 80.0-100.0 fL Mean Corpuscular Hemoglobin 19.0 L 28.0-32.0 pg Mean Corpuscular Hemoglobin Concent 30.3 L 32.0-36.0 g/dL Red Cell Distribution Width 29.1 H 11.8-14.3 % Platelet Count 517 H 140-450 10^3/uL Mean Platelet Volume 8.5 6.9-10.8 fL Neutrophils (%) (Auto) 37.0-80.0 % Lymphocytes (%) (Auto) 10.0-50.0 % Monocytes (%) (Auto) 0.0-12.0 % Basophils (%) (Auto) 0.0-2.0 % Neutrophils # (Auto) 1.6-8.6 10 ^3/uL Lymphocytes # (Auto) 0.4-5.4 10 ^3/uL Monocytes # (Auto) 0-1.3 10 ^3/uL Differential Total Cells Counted 100.0 100 Neutrophils % (Manual) 92 H 37.0-80.0 Band Neutrophils % (Manual) 0 Lymphocytes % (Manual) 4 L 10.0-50.0 Monocytes % (Manual) 4 0-12 Eosinophils % (Manual) 0 0-7 Basophils % (Manual) 0 0.0-2.0 Metamyelocytes % (manual) 0 Myelocytes % (Manual) 0 Promyelocytes % (Manual) 0 Blast Cells % (Manual) 0 Reactive Lymphocytes 0 Platelet Estimate Increased Hypochromasia (manual) Moderate Anisocytosis (manual) Moderate Microcytosis Moderate Sodium Level 131 L 136-145 mmol/L Potassium Level 3.9 3.5-5.1 mmol/L Chloride Level 100 98-107 mmol/L Carbon Dioxide Level 25 20-31 mmol/L Anion Gap 6 5-15 Blood Urea Nitrogen 9 9-23 mg/dL Creatinine 1.17 0.700-1.30 mg/dL Glomerular Filtration Rate Calc 88 >90 mL/min BUN/Creatinine Ratio 7.7 L 10.0-20.0 Serum Glucose 101 74-106 mg/dL Calcium Level 8.5 L 8.7-10.4 mg/dL Total Bilirubin 0.7 0.2-1.0 mg/dL Aspartate Amino Transferase (AST) 36 13-40 U/L Alanine Aminotransferase (ALT) 30 7-40 U/L Alkaline Phosphatase 323 H 46-116 U/L Total Protein 6.4 5.7-8.2 g/dL Albumin 2.6 L 3.2-4.8 g/dL Random Vancomycin Level 8.5 5-10 ug/mL POC Glucose 142 H 70-106 mg/dl Stool Occult Blood Positive Negative Stool Occult Blood Sample #3 Negative Test 01/17/24 14:55 01/17/24 06:00 01/16/24 18:25 01/16/24 06:39 Range/Units Vancomycin Level Trough 13.5 H 5-10 ug/mL Eosinophils (%) (Auto) 1.8 0.0-7.0 % Eosinophils # (Auto) 0.4 0-0.8 10 ^3/uL Basophils # (Auto) 0.1 0-0.2 10 ^3/uL Nucleated Red Blood Cells 0.1 % Reticulocyte Count (auto) 1.84 H 0.5-1.5 % Magnesium Level 1.7 1.6-2.6 mg/dL Gamma Glutamyl Transpeptidase 219 H <73 U/L Lactate Dehydrogenase 135 120-246 U/L Vitamin B12 Level 1406 H 211-911 pg/mL Vitamin D 25-Hydroxy 29.0 L 30.0-100 ng/mL Anti-Nuclear Antibody Comment Comment . Anti-Proteinase 3 (c-ANCA) 2.3 H 0.0-0.9 units Myeloperoxidase Antibody <0.2 0.0-0.9 units GRACIE-1 Antibody <0.2 0.0-0.9 AI SS-A/Ro Antibody <0.2 0.0-0.9 AI SS-B/La Antibody <0.2 0.0-0.9 AI Sm Antibody <0.2 0.0-0.9 AI [employer] Antibody <0.2 0.0-0.9 AI Scl-70 (Scleroderma) Antibody <0.2 0.0-0.9 AI Anti-Double Strand DNA Antibody <1 0-9 IU/mL Chromatin Antibody <0.2 0.0-0.9 AI Centromere B Antibody <0.2 0.0-0.9 AI Rapid Plasma Reagin Non reactive Non Reactive HIV (1&2) Antibody Negative Negative Urine Color Yellow Yellow Urine Clarity Clear Clear Urine pH 5.5 5.0-9.0 Urine Specific [place] 1.050 H 1.001-1.035 Urine Protein Trace H Negative Urine Ketones Trace Negative Urine Blood Negative Negative /uL Urine Nitrite Negative Negative Urine Bilirubin Negative Negative Urine Urobilinogen Normal Negative mg/dL Urine Leukocyte Esterase Negative Negative /uL Urine RBC 1 0 - 3 /hpf Urine WBC 3 0 - 3 /hpf Urine Squamous Epithelial Cells Few <5 /hpf Urine Bacteria None seen None Seen /hpf Urine Mucus Few None Seen Urine Glucose Normal Normal mg/dL Urine Opiates Screen Neg NEGATIVE Urine Fentanyl Screen Neg NEGATIVE Urine Barbiturates Screen Neg NEGATIVE Urine Phencyclidine Screen Neg NEGATIVE Urine Amphetamines Screen Neg NEGATIVE Urine Benzodiazepines Screen Neg NEGATIVE Urine Cocaine Screen Neg NEGATIVE Urine Cannabinoids Screen Neg NEGATIVE Erythrocyte Sedimentation Rate 96 H 0-20 mm/hr Haptoglobin 340 H 17-317 mg/dL Prothrombin Time 13.6 H 9.3-11.8 sec Prothrombin Time INR 1.31 H 0.9-1.15 Activated Partial Thromboplast Time 29.8 24.5-34.5 SEC Iron Level 11 L 65-175 ug/dL Ferritin 23.4 22-322 ng/mL C-Reactive Protein High Sensitivity 15.29 H <1.0 mg/dL Thyroid Stimulating Hormone (TSH) 3.10 0.55-4.78 uIU/mL Plasma/Serum Blood Alcohol < 3.0 <10 mg/dL Hepatitis B Surface Antigen Negative Negative Hepatitis B Surface Antibody Negative Negative Hepatitis C Antibody Negative Negative Test 01/16/24 04:05 01/16/24 02:30 Range/Units Lactic Acid Level 1.1 0.4-2.0 mmol/L Large Platelets Few Poikilocytosis (manual) Slight Target Cells Few Schistocytes Few Microbiology Date/Time Source Procedure Growth Status 01/17/24 11:14 Groin Gram Stain - Final Resulted 01/17/24 11:14 Groin Wound Culture - Preliminary Resulted 01/16/24 18:25 Voided Urine Urine Culture - Final Complete 01/16/24 04:05 Blood Blood Culture - Preliminary NO GROWTH AFTER 72 HOURS OF INCUBATION. Resulted Assessment [id number] AFEBRILE VSS ABD SOFT PMH OF ULCERATIVE COLITIS NON HEALING WOUND LEFT FOREARM CONSIDER SECONDARY CLOSURE NON HEALING WOUND LEFT FOREARM WITH LESION BIOPSY NURSE AT BEDSIDE Plan discussed with: Patient ELENO WASHBURN MD Jan 19, 2024 18:38
--- NOTE | 2024-01-19 19:56 | DVHINCON2 ---
DATE OF CONSULTATION: 01/19/2024 HISTORY OF PRESENT ILLNESS: The patient is 28 years old, coming in with past medical history of anemia, ulcerative colitis, and complaining of a nonhealing wound of his left forearm and two in his groin area and also his feet. He is originally from [place], [place], and residing in [facility] and I was asked to see him regarding a biopsy or a secondary wound closure of his left forearm and a lesion. PAST MEDICAL HISTORY: No diabetes, hypertension, history of anemia, history of inflammatory bowel disease. PAST SURGICAL HISTORY: None. PHYSICAL EXAMINATION: VITAL SIGNS: Afebrile, stable signs. HEENT: With no evidence of pallor, cyanosis, or jaundice. NECK: Supple, nontender with no thyromegaly or lymphadenopathy. CHEST AND LUNGS: Clear. HEART: Within normal limits. ABDOMEN: Soft. NEUROLOGIC: Not assessed. EXTREMITIES: Reveals left forearm nonhealing wound. PLAN: Will be to consider secondary closure of the nonhealing wound with the biopsy and continue close observation. MD CÉSAR Pop/GUERDA/BETO TID: [id number] RECEIPT: [id number] cc: REBEKAH FOREMAN M.D.
--- NOTE | 2024-01-19 20:38 | DVHPNRES ---
Progress Note Date Seen: Jan 19, 2024 Resident Creating Document: JHNikoJAngelinaANGELICA RESIDENT Medical Necessity Reason Pt with a Central, PICC or Fol: No Subjective Review of Systems Patient was seen and examined at the bedside. A/O x 4. Patient appears weak in bed reports left sided abdominal discomfort, nausea or vomiting tenderness in the left subcostal region in the midaxillary line Patient had a Tmax 102F, blood pressure 120/70mmhg. Tachycardia with HR ranging from 100-120bpm. On room air MRI abdomen with contrast done which shows Complex fluid collection along the superior and lateral aspects of the spleen, appears to be mostly subcapsular measuring up to 8.0 cm in AP dimension, 2.6 cm in transverse dimension, and 8.6 cm in craniocaudal dimension. Objective vital signs Vital Sign Date Time Temp Pulse Resp B/P (MAP) Pulse Ox O2 Delivery O2 Flow Rate FiO2 01/19/24 17:46 99.0 01/19/24 17:00 124 18 113/64 (80) 94 01/19/24 08:00 Room Air* 0 21 Total Intake and Output 01/18/24 01/18/24 01/19/24 15:00 23:00 07:00 Intake Total 350 ml 2800 ml 1000 ml Output Total 1400 ml 1800 ml Balance 350 ml 1400 ml -800 ml medications Current Medications Medications Dose Ordered Sig/Latoya Route Start Time Stop Time Status Last Admin Dose Admin Nitroglycerin 0.4 mg Q5MINP PRN SL 01/16/24 05:15 Morphine Sulfate 2 mg Q30M PRN IV 01/16/24 05:15 Pantoprazole Sodium 40 mg DAILY IV 01/16/24 10:00 01/19/24 10:03 40 MG Vancomycin HCl 0 ml @ 0 mls/hr UD IV 01/16/24 11:00 Lactated Ringer's 1,000 ml @ 150 mls/hr Q6H40M IV 01/16/24 18:30 01/19/24 13:21 150 MLS/HR Ergocalciferol 50,000 unit Q7D PO 01/18/24 09:00 01/18/24 09:12 50,000 UNIT Fluconazole 100 ml @ 100 mls/hr 10,11 IV 01/19/24 10:00 01/19/24 11:22 100 MLS/HR Vancomycin HCl 250 ml @ 250 mls/hr Q8H IV 01/19/24 11:00 01/19/24 18:24 250 MLS/HR Acetaminophen 650 mg Q6HR PO 01/19/24 12:00 01/19/24 16:57 650 MG Cefepime HCl 50 ml @ 12.5 mls/hr Q8HR IV 01/19/24 22:00 Metronidazole 100 ml @ 100 mls/hr Q8HR IV 01/19/24 14:00 01/19/24 14:50 100 MLS/HR Examination Physical Examination Gen - no pallor, no icterus, no cyanosis, no clubbing, no LAD, no edema . Skin - Patients skin is warm and dry. HEENT - normocephalic, atraumatic, dry mucous membranes. Neck - full ROM, no LAD, no JVD Pulmonary - B/L vesicular breath sounds. no crackles , no wheezing, no stridor. cardiovascular - normal S1,S2 heard. no murmurs heard. peripheral pulses normal radial 2+, pedal 2+. capillary refill normal <2 secs. GI - soft abdomen with tenderness to palpation in the left subcostal region in the mid axiallary line.no hepatospleenomegaly. Bowel sounds normoactive Neurological - Patient is A/O X 3 . Bilateral upper extremity strength 5/5, bilateral lower extremity strength 5/5, no facial droop, normal speech, no tremor, no sensory deficiets. Ulcer # 1X1 cm ulcer in the left upper forearm with undermined edges. # 1X1 cm ulcer in the left upper groin with undermined edges and oozing white yellowish fluid and smaller ulcer seen adjacent to it # 1 X 1 cm ulcer above the left lateral malleolus - no Osler nodes, no [place] lesions, no splinter hemorrhages in the nails seen. laboratory and microbiology Laboratory Tests 01/19/24 08:33 01/19/24 05:58 Test 01/19/24 05:58 Range/Units Serum Glucose 101 74-106 mg/dL Microbiology Date/Time Source Procedure Growth Status 01/17/24 11:14 Groin Gram Stain - Final Resulted 01/17/24 11:14 Groin Wound Culture - Preliminary Resulted 01/16/24 18:25 Voided Urine Urine Culture - Final Complete 01/16/24 04:05 Blood Blood Culture - Preliminary NO GROWTH AFTER 72 HOURS OF INCUBATION. Resulted Problem List/Assessment/Plan Problem List/Assessment/Plan Assessment and plan # Sepsis likely due to ?Bacteremia # Bacteremia likely from ?insect bite ?wounds # ?splenic abcess - wound culture pending - blood culture after 24 hrs shows no growth - urine culture preliminary shows no growth - CT abdomen pelvis with and without contrast mildly hypodense collection seen along the lateral margin of the spleen measuring 1.9 cm in diameter, scalloping along the lateral margins of the spleen, wedge-shaped defect in the upper spleen - Patient is on IV fluids LR @ 150ml/hr - IV Vancomycin + zosyn - doxycycline 100mg bid po, stopped on 01/18/24 - on fluconazole 400mg IV daily - ID consulted with Dr Martinez - Recommend biopsy of skin lesions, - after biopsy, consider initiating steroid therapy for suspected pyoderma gangrenosum. # Ulcerative colitis Flare up with ?pyoderma gangrenosum - Elevated ESR and CRP - DUSTIN panel negative - ANCA panel pending - liver panel shows elevated alkaline phosphatase # ? splenic abscess # ? splenic laceration # ? subscapular hematoma -CT abdomen pelvis with and without contrast mildly hypodense collection seen along the lateral margin of the spleen measuring 1.9 cm in diameter, scalloping along the lateral margins of the spleen, wedge-shaped defect in the upper spleen - Further investigation with CT guided aspiration may be performed - MRI abdomen with contrast # Microcytic hypochromic anemia # Iron deficiency ? Thalassemia ? Anemia of chronic disease - Patient given 2 units of PRBC in the ER - Marked microcytosis and hypochromia seen - Peripheral blood smear pending 01/18 - ID consulted with Dr. Martinez, recommended - continuing on IV antibiotics - Recommend biopsy of skin lesions, - after biopsy, consider initiating steroid therapy for suspected pyoderma gangrenosum. - MR abdomen with contrast showed shows Complex fluid collection along the superior and lateral aspects of the spleen, appears to be mostly subcapsular measuring up to 8.0 cm in AP dimension, 2.6 cm in transverse dimension, and 8.6 cm in craniocaudal dimension. Additional smaller fluid collections are seen in the spleen, measuring up to 1.6 cm, 1.5 cm, and 1.0 cm, respectively. - WBC went up. - Patient had fevers upto 102F, put on scheduled acetaminophen q6hrs and cooling measures - Surgery consulted with , skin biopsy to be done tomorrow. Goals of care discussed with the patient for over 33 minutes. Full code Plan discussed with Dr. Eduardo Plan discussed with: Patient, Other (mother) My Orders My Orders Orders - ANGELICA CARO RESIDENT Procedure Category Date Status Time Chest Xray 1 View XY 01/19/24 Resulted 10:59 Acetaminophen Tablet PHA 01/19/24 In Process (Tylenol Tablet) 12:00 LIVER US 01/19/24 Resulted 11:01 Cefepime 1gm/ 50ml PHA 01/19/24 In Process (Maxipime 1gm/50ml) 22:00 Metronidazole PHA 01/19/24 In Process 500mg/100ml (Flagyl 14:00 * [facility] P[employer]ing Supervisor CONS 01/19/24 Transmitted 15:55 Npo After Midnight DIET 01/20/24 Transmitted Breakfast * Surgical Consult CONS 01/19/24 Transmitted Dietary Evaluation Review Recommendations by RD: Decrease Calorie Intake Comments: 1) Consider HAROON 1 pkt BID for wounds 2) Continue current plan of care Expected Outcomes/Goals: F/U in 3-5 days CC Plasma Assessment Blood Product Administration S: 1540 Date of Service: Jan 19, 2024 Billing Provider: RICHIE MILLER MD Common Visit Codes: [id number] INP/OBS CARE(HIGH) ANGELICA CARO RESIDENT Jan 19, 2024 20:38 RICHIE MILLER MD Jan 23, 2024 09:07
--- NOTE | 2024-01-19 22:20 | DVHPN2 ---
Consult Progress Note Date Seen: Jan 19, 2024 Subjective Patient reports: Other (pale face , short of breath , is tachycardic , fever of 101 and has ulcers on his elbows ankles and right groin . white is now up to 28.3 ) Objective vital signs Vital Sign Date Time Temp Pulse Resp B/P (MAP) Pulse Ox O2 Delivery O2 Flow Rate FiO2 01/19/24 21:00 101.3 120 20 125/76 (92) 100 101.3 01/19/24 08:00 Room Air* 0 21 Total Intake and Output 01/18/24 01/18/24 01/19/24 15:00 23:00 07:00 Intake Total 350 ml 2800 ml 1000 ml Output Total 1400 ml 1800 ml Balance 350 ml 1400 ml -800 ml medications Current Medications Medications Dose Ordered Sig/Latoya Route Start Time Stop Time Status Last Admin Dose Admin Nitroglycerin 0.4 mg Q5MINP PRN SL 01/16/24 05:15 Morphine Sulfate 2 mg Q30M PRN IV 01/16/24 05:15 Pantoprazole Sodium 40 mg DAILY IV 01/16/24 10:00 01/19/24 10:03 40 MG Vancomycin HCl 0 ml @ 0 mls/hr UD IV 01/16/24 11:00 Lactated Ringer's 1,000 ml @ 150 mls/hr Q6H40M IV 01/16/24 18:30 01/19/24 13:21 150 MLS/HR Ergocalciferol 50,000 unit Q7D PO 01/18/24 09:00 01/18/24 09:12 50,000 UNIT Fluconazole 100 ml @ 100 mls/hr 10,11 IV 01/19/24 10:00 01/19/24 11:22 100 MLS/HR Vancomycin HCl 250 ml @ 250 mls/hr Q8H IV 01/19/24 11:00 01/19/24 18:24 250 MLS/HR Acetaminophen 650 mg Q6HR PO 01/19/24 12:00 01/19/24 16:57 650 MG Cefepime HCl 50 ml @ 12.5 mls/hr Q8HR IV 01/19/24 22:00 Metronidazole 100 ml @ 100 mls/hr Q8HR IV 01/19/24 14:00 01/19/24 14:50 100 MLS/HR Physical Exam: - General: Pale, appears malnourished. - Neck: Supple. No masses. - HEENT: PERRL. Normal lids and conjunctiva. Moist mucous membranes. Oropharynx without lesions, exudates, or excessive erythema. Normal appearance of the external aspects of the nose and ears. - Heart: Regular rhythm, normal rate. No murmur. No lower extremity edema. - Lungs: Normal respiratory effort. Clear to auscultation bilaterally. No wheezes. No crackles. - Abdomen: Soft. Non-tender. Non-distended. No masses or abdominal hernia. - Msk: No digital cyanosis. Normal strength and tone in all four limbs. - Skin: Warm and dry. Wounds on the left forearm and groin with clear boundaries, violaceous borders, tender, draining exudate at the center. - Neuro: Alert. No facial droop or slurred speech. Extraocular movements intact. Sensation intact to soft touch in all four limbs. - Psych: Appropriate mood. Full affect. Oriented to person, place, time, and situation. laboratory and microbiology Laboratory Tests 01/19/24 08:33 01/19/24 05:58 Test 01/19/24 05:58 Range/Units Serum Glucose 101 74-106 mg/dL Problem List/Assessment/Plan Problems(with codes): (1) Sepsis (2) Symptomatic anemia (3) Wounds, multiple open, arm (4) Cellulitis (5) Ulcerative colitis Problem List/Assessment/Plan (1) Sepsis (2) Ulcerative colitis (3) Cellulitis (4) Wounds, multiple open, arm (5) Symptomatic anemia Plan/Recommendation ASSESSMENT AND PLAN: ID Problem List: - Pyoderma gangrenosum - Suspected splenic abscess vs. hematoma - Inflammatory bowel disease (ulcerative colitis) - Leukocytosis - Sepsis Assessment: This is a 28 y.o. male with a past medical history of osteoporosis and inflammatory bowel disease (ulcerative colitis), who presents with painful ulcers on his left forearm and groin area. The patient reports that these wounds developed ulcers, which ruptured and are painful. He has been feeling unwell for the last three days prior to admission. He is originally from [place] and recently traveled to [facility] to visit family. He endorses being bitten by bugs during his travel but is unsure of the type of insects. On examination, the patient appears pale and malnourished with a low BMI of 19.9. Vital signs are notable for fever (Tmax 101.5F) and tachycardia (HR 125 bpm). Physical exam reveals wounds on the left forearm and groin with clear boundaries, violaceous borders, tender, draining exudate at the center. Imaging studies include: - CT abdomen and pelvis showing a mildly hyperdense collection on the lateral margin of the spleen measuring 1.9 cm in diameter with scalloping along the lateral margins and a wedge defect in the upper spleen. Findings may represent splenic laceration or subcapsular hematoma; splenic abscess is not entirely excluded. Several nonspecific hypodensities within the spleen measuring 1.1 cm may represent simple cysts. MRI of the abdomen is recommended. - Ultrasound of the left forearm revealing a 0.6 x 0.5 x 0.6 cm cystic mass-like structure, which could represent a sebaceous cyst. - Chest X-ray showing no acute disease. - Blood cultures are no growth to date. Laboratory studies reveal leukocytosis. MRI abd w/. 1.9 cm hematoma of spleen - suspect pyodermic involvement of viscera likely aseptic but cannot rule out infection 01/18: wound culture is growing possible enterococcus Plan: - Continue Cefepime and flagyl - Continue vancomycin for broad-spectrum coverage. - Recommend biopsy of skin lesions, suspect splenic abscess is visceral manifestation of pyoderma gangrenosum. - Follow up on wound cultures and adjust antibiotics as necessary. - Monitor vital signs and laboratory studies for any changes. Isolation Precautions: Standard Assessment and plan were discussed with the patient as written above. Plan is subject to change pending incorporation of new incoming information/diagnostics. Updates may be added as addendum at the bottom (OR TOP) of this note. Thank you for the interesting consult. ID will continue to follow. Please contact Infectious Disease for any questions or concerns. Ana Martinez M.D. Plan discussed with: Other Dietary Evaluation Review Recommendations by RD: Decrease Calorie Intake Comments: 1) Consider HAROON 1 pkt BID for wounds 2) Continue current plan of care Expected Outcomes/Goals: F/U in 3-5 days CC Plasma Assessment Blood Product Administration S: 1540 ANA MARTINEZ MD Jan 19, 2024 22:20
[2024-01-19] MEDS: CEFEPIME 1GM/ 50ML 50 ML IV SCH (22:29)
[2024-01-20] VITALS (8 sets, daily range): BP systolic 109–119; BP diastolic 58–75; PULSE 100–122; RESP 18–21; TEMP 98.3–102; O2SAT 95–100
[2024-01-20 06:49] LABS: Basophils # (auto) 0.1 10 ^3/uL (0-0.2); Eosinophils % (auto) 0.8 % (0.0-7.0); Hematocrit 26.6 % (41.0-53.0); Lymphocytes # (auto) 1.4 10 ^3/uL (0.4-5.4); Mean Corpuscular Volume 63.5 fL (80.0-100.0); Red Blood Cells 4.19 10^6/uL (4.5-5.90)
[2024-01-20 06:51] LABS: Basophils % (auto) 0.3 % (0.0-2.0); Eosinophils # (auto) 0.3 10 ^3/uL (0-0.8); Lymphocytes % (auto) 4.6 % (10.0-50.0); Mean Corpuscular Hemoglobin 19.2 pg (28.0-32.0); Mean Corpuscular Hgb Conc. 30.2 g/dL (32.0-36.0); Monocytes # (auto) 2.4 10 ^3/uL (0-1.3); Monocytes % (auto) 7.9 % (0.0-12.0); Neutrophils # (auto) 26.2 10 ^3/uL (1.6-8.6); Neutrophils % (auto) 86.4 % (37.0-80.0); Platelet Count (auto) 482 10^3/uL (140-450)
[2024-01-20 07:03] LABS: Alanine Aminotransferase 30 U/L (7-40); Anion Gap 10 (5-15); BUN/Creatinine Ratio 8.7 (10.0-20.0); Blood Urea Nitrogen 9 mg/dL (9-23); Calcium 8.7 mg/dL (8.7-10.4); Carbon Dioxide 23 mmol/L (20-31); Chloride 99 mmol/L (98-107); Glucose 93 mg/dL (74-106); Potassium 4.1 mmol/L (3.5-5.1)
[2024-01-20 07:04] LABS: Aspartate Aminotransferase 30 U/L (13-40); Bilirubin, Total 0.8 mg/dL (0.2-1.0)
[2024-01-20 07:08] LABS: Albumin 2.6 g/dL (3.2-4.8); Alkaline Phosphatase 312 U/L (46-116); Sodium 132 mmol/L (136-145)
[2024-01-20 07:25] LABS: Red Cell Distribution Width 28.6 % (11.8-14.3); White Blood Cell 30.4 10^3/uL (4.4-10.8)
[2024-01-20 07:46] LABS: % Iron Saturation 5.4 % (20-55)
[2024-01-20] MEDS: FERROUS SULFATE 325mg EC TAB PO SCH (10:34)
[2024-01-20] MEDS: LACTATED RINGER'S 500 ML IV ONE (12:30)
--- NOTE | 2024-01-20 14:49 | DVHINCON2 ---
GI Consult Consult Note GI consult note Date of Consultation: 01/20/2024 Chief Complaint: Ulcerative colitis Referring Physician: Dr. Feng H&P: 28-year-old male admitted with complains of insect bites on left forearm and groin area Patient also complaining of left upper quadrant pain No nausea or vomiting Patient diagnosed with ulcerative colitis when 16 years old Last colonoscopy three years ago No medications for ulcerative colitis at this time Last BM this morning, no melena or red blood in stool Past Medical History: GI: Ulcerative colitis Heme/Onc: Anemia NOS Past Surgical History: Denies Social History: NO smoking, drinking ETOH and use of illegal drugs. Family History: Noncontributory Review of Systems: Constitutional: no fever, chill, weight loss HEENT: no eye pain, no hearing loss, no oral lesion, no scleral icterus Heart: no chest pain, no chest pressure Lung: no cough, no dyspnea with exertion Abdomen: see HPI Physical exam: General: NAD, AAOX3 Chest: lung kirkpatrick clear to auscultation Heart: RRR, no murmur Abdomen: non-distended,+ LUQ tenderness to palpation, +BS Labs: 01/19/24 05:58 Test 01/19/24 05:58 Range/Units Serum Glucose 101 74-106 mg/dL Microbiology Date/Time Source Procedure Growth Status 01/17/24 11:14 Groin Gram Stain - Final Resulted 01/17/24 11:14 Groin Wound Culture - Preliminary Resulted 01/16/24 18:25 Voided Urine Urine Culture - Final Complete 01/16/24 04:05 Blood Blood Culture - Preliminary NO GROWTH AFTER 72 HOURS OF INCUBATION. Resulted Imaging: CT abdomen pelvis IMPRESSION: 1. Mildly hypodense collection along the lateral margins of the spleen measuring 1.9 cm in diameter. The collection does not appear to be simple fluid and there is scalloping along the lateral margins of the spleen. There is a wedge defect in the upper spleen. The findings may represent changes related to splenic laceration and subcapsular hematoma. Splenic abscess is not entirely excluded. Clinical correlation is recommended. If warranted, further evaluation with cT- guided aspiration may be performed. 2. Several nonspecific hypodense lesions in the spleen measuring up to 1.1 cm. These do not appear to be simple cysts. Further evaluation with multiphase MRI abdomen is recommended. 3. Nonspecific 1.7 cm cystic structure along the right external iliac vessels. 4. Small left-sided pleural effusion. MRI abdomen IMPRESSION: 1. Complex fluid collections in the spleen, most likely hematomas with suspected splenic laceration. Correlate with clinical findings. 2. Additional areas of trace free fluid in the abdomen also noted and small left pleural effusion. Liver ultrasound IMPRESSION: 1. Mildly contracted gallbladder without evidence of gallstones. Assessment: Ulcerative colitis Splenic abscess Anemia Sepsis Plan: Discussed with Dr. Ambrocio Antibiotics Monitor lab Avoid steroids at this time for possible splenic abscess workup pending We will continue to monitor this patient Discussed plan with patient and RN Thank you for this consult Date of Service: Jan 20, 2024 Billing Provider: CAMMY CONNOLLY Common Visit Codes: CONSULT ONLY Consultation Codes: [id number] CONSULT <60MIN CAMMY CONNOLLY Jan 20, 2024 14:49
[2024-01-20 15:06] LABS: Cytoplasmic (C-ANCA) <1:20 titer (Neg:<1:20)
--- NOTE | 2024-01-20 15:17 | DVH ---
CT CHEST, ABDOMEN AND PELVIS CLINICAL HISTORY: splenic hematoma abcess r/o intraabd bleed, r/o oth. sources TECHNIQUE: Multiple contiguous axial images of the chest, abdomen and pelvis with intravenous contras t. The images were reformatted degenerate coronal and sagittal reconstructions. 100 cc of Omnipaque 300 contrast was injected intravenously. All CT scans at this medical facility are performed using dose modulation techniques as appropriate t o a performed exam including the following:Automated exposure control was utilized; adjustment of the MA and/or KV according to patient size; and use of iterative reconstruction technique. Radiation Dose Information: CT Dose: CTDI volume is 5.7 mGy. Dose-length product is 420.25 mGy*cm FINDINGS: [Findings] There is small left pleural effusion with atelectasis in the left lung base. There is no lung consoli dation. There is no suspicious appearing pulmonary nodule or mass. There is no evidence of pneumotho rax. There is no evidence of a mediastinal mass or lymphadenopathy. There is no hilar or axillary lymphad enopathy. The heart size within normal limits. There is no pericardial effusion. There is redemonstration of hypodense collection along the lateral margins of the spleen measuring ap proximately 2 cm in diameter. The attenuation of the fluid is greater than simple fluid. Fluid demons trated heterogeneous signal on prior MR with areas of intrinsic hyperintense T1 signal. There is scal loping along the lateral margins of the spleen. Also seen is a wedge defect in the upper spleen splee n. Additional hypodense foci are seen in the spleen which demonstrated hyperintense T2 signal on prio r MR. The liver, gallbladder, pancreas, kidneys, and adrenal glands appear within normal limits. There are trace pockets of ascites in the abdomen. There is no free air. There is no evidence of abdo carlos lymphadenopathy. The stomach grossly appears unremarkable.The small and large bowel loops demonstrate normal caliber. The abdominal aorta and IVC appear within normal limits. The bladder appears unremarkable. Pelvic organ appears within normal limits. There is no evidence o f a pelvic mass or lymphadenopathy. There is no free fluid collection. There is a stable nonspecific 1.7 cm cystic structure along the right external iliac vessels. There is no acute osseous abnormality. IMPRESSION: 1. Redemonstration of hypodense collection along the lateral margins of the spleen measuring approxim ately 2 cm in diameter. The fluid demonstrated heterogeneous signal on prior MRI with areas of intri nsic hyperintense T1 signal suggestive of subcapsular hematoma. There is scalloping of the lateral ma rgins of the spleen along with wedge-shaped defect. The findings are suspicious for splenic lacerati on. Additional hypodense foci in the spleen likely represent collections of fluid/ hematoma in the sp ede. Clinical correlation is recommended. 2. Small left pleural effusion with atelectasis in the left lung base. 3. Trace pockets of ascites in the abdomen. 4. Stable nonspecific 1.7 cm cystic structure along the right external iliac vein. HS:Y
--- NOTE | 2024-01-20 15:39 | DVHPN2 ---
Progress Note Date Seen: Jan 20, 2024 Medical Necessity Reason Pt with a Central, PICC or Fol: No Objective vital signs Vital Sign Date Time Temp Pulse Resp B/P (MAP) Pulse Ox O2 Delivery O2 Flow Rate FiO2 01/20/24 14:02 100.2 118 21 110/68 (82) 97 100.2 01/20/24 07:38 Room Air* 0 21 Total Intake and Output 01/19/24 01/19/24 01/20/24 15:00 23:00 07:00 Intake Total 350 ml 950 ml 1650 ml Output Total 300 ml Balance 350 ml 950 ml 1350 ml medications Current Medications Medications Dose Ordered Sig/Latoya Route Start Time Stop Time Status Last Admin Dose Admin Nitroglycerin 0.4 mg Q5MINP PRN SL 01/16/24 05:15 Morphine Sulfate 2 mg Q30M PRN IV 01/16/24 05:15 Pantoprazole Sodium 40 mg DAILY IV 01/16/24 10:00 01/20/24 08:58 40 MG Vancomycin HCl 0 ml @ 0 mls/hr UD IV 01/16/24 11:00 Lactated Ringer's 1,000 ml @ 150 mls/hr Q6H40M IV 01/16/24 18:30 01/20/24 08:59 150 MLS/HR Ergocalciferol 50,000 unit Q7D PO 01/18/24 09:00 01/18/24 09:12 50,000 UNIT Fluconazole 100 ml @ 100 mls/hr 10,11 IV 01/19/24 10:00 01/20/24 10:36 100 MLS/HR Vancomycin HCl 250 ml @ 250 mls/hr Q8H IV 01/19/24 11:00 01/20/24 10:36 250 MLS/HR Acetaminophen 650 mg Q6HR PO 01/19/24 12:00 01/20/24 10:34 650 MG Cefepime HCl 50 ml @ 12.5 mls/hr Q8HR IV 01/19/24 22:00 01/20/24 13:34 12.5 MLS/HR Metronidazole 100 ml @ 100 mls/hr Q8HR IV 01/19/24 14:00 01/20/24 13:29 100 MLS/HR Ferrous Sulfate 325 mg DAILY@LUNCH PO 01/20/24 12:00 01/20/24 10:34 325 MG laboratory and microbiology Laboratory Tests 01/20/24 06:21 Test 01/20/24 06:21 Range/Units Serum Glucose 93 74-106 mg/dL Microbiology Date/Time Source Procedure Growth Status 01/19/24 10:50 Blood Blood Culture - Preliminary NO GROWTH AFTER 24 HOURS OF INCUBATION. Resulted 01/17/24 11:14 Groin Gram Stain - Final Complete 01/17/24 11:14 Wound Culture - Final Enterococcus faecalis Complete 01/16/24 18:25 Voided Urine Urine Culture - Final Complete Problem List/Assessment/Plan Problem List/Assessment/Plan AFEBRILE VSS WBC ELEVATED CT SCAN FINDINGS NOTED R/O SPLENIC HEMATOMA, ABSCESS COULD BE RELATED TO COMPLICATION FROM ULCERATIVE COLITIS OR TRAUMA HOLD SURGERY FOR FOREARM LESION BX CONSIDER URGENT TRANSFER TO HIGHER LEVEL OF CARE BASED UPON ONGOING SEPSIS AND ABOVE FINDINGS DISCUSSED WITH DR FOREMAN NURSE AT BEDSIDE Plan discussed with: Other My Orders My Orders Orders - ELENO WASHBUNR MD Procedure Category Date Status Time Obtain Consent For: ORDERS 01/19/24 Transmitted 18:38 Obtain Consent For BETAHNY 01/19/24 In Process Anesthesia 18:38 Obtain Consent For: ORDERS 01/19/24 Transmitted 18:40 Dietary Evaluation Review Recommendations by RD: Decrease Calorie Intake Comments: 1) Consider HAROON 1 pkt BID for wounds 2) Continue current plan of care Expected Outcomes/Goals: F/U in 3-5 days CC Plasma Assessment Blood Product Administration S: [id number] ELENO WASHBURN MD Jan 20, 2024 15:39
--- NOTE | 2024-01-20 18:04 | DVHDSRES ---
Discharge Summary Date of Admission Resident Creating Document: ANGELICA CARO RESIDENT Jan 16, 2024 at 05:03 Date of Discharge: Jan 20, 2024 Admitting Diagnosis #1 Multiple insect bites, unknown kind #2 Skin ulceration with underlying cellulitis #3 Severe sepsis secondary to above #3 History of ulcerative colitis, pancolitis with rectal bleeding #4 Microcytic hypochromic anemia #5 thrombocytosis #6: Mild hyponatremia #7: Mild protein energy malnourishment Wounds: # 1X1 cm ulcer in the left upper forearm with undermined edges and has purulent drainage # 1X1 cm ulcer in the left upper groin with undermined edges and oozing white yellowish fluid and smaller ulcer seen adjacent to it # 2 X 1 cm ulcer above the left lateral malleolus with purulent drainage Labs/Diagnostic Data: Laboratory Results Test 01/20/24 10:23 01/20/24 06:21 01/19/24 08:33 01/19/24 05:58 Lactic Acid Level 1.3 mmol/L (0.4-2.0) Vancomycin Level Trough 10.4 ug/mL (5-10) White Blood Count 30.4 10^3/uL (4.4-10.8) Red Blood Count 4.19 10^6/uL (4.5-5.90) Hemoglobin 8.0 g/dL (13.5-17.5) Hematocrit 26.6 % (41.0-53.0) Mean Corpuscular Volume 63.5 fL (80.0-100.0) Mean Corpuscular Hemoglobin 19.2 pg (28.0-32.0) Mean Corpuscular Hemoglobin Concent 30.2 g/dL (32.0-36.0) Red Cell Distribution Width 28.6 % (11.8-14.3) Platelet Count 482 10^3/uL (140-450) Mean Platelet Volume 8.2 fL (6.9-10.8) Neutrophils (%) (Auto) 86.4 % (37.0-80.0) Lymphocytes (%) (Auto) 4.6 % (10.0-50.0) Monocytes (%) (Auto) 7.9 % (0.0-12.0) Eosinophils (%) (Auto) 0.8 % (0.0-7.0) Basophils (%) (Auto) 0.3 % (0.0-2.0) Neutrophils # (Auto) 26.2 10 ^3/uL (1.6-8.6) Lymphocytes # (Auto) 1.4 10 ^3/uL (0.4-5.4) Monocytes # (Auto) 2.4 10 ^3/uL (0-1.3) Eosinophils # (Auto) 0.3 10 ^3/uL (0-0.8) Basophils # (Auto) 0.1 10 ^3/uL (0-0.2) Nucleated Red Blood Cells 0.0 % Sodium Level 132 mmol/L (136-145) Potassium Level 4.1 mmol/L (3.5-5.1) Chloride Level 99 mmol/L (98-107) Carbon Dioxide Level 23 mmol/L (20-31) Anion Gap 10 (5-15) Blood Urea Nitrogen 9 mg/dL (9-23) Creatinine 1.03 mg/dL (0.700-1.30) Glomerular Filtration Rate Calc 103 mL/min (>90) BUN/Creatinine Ratio 8.7 (10.0-20.0) Serum Glucose 93 mg/dL (74-106) Calcium Level 8.7 mg/dL (8.7-10.4) Iron Level 11 ug/dL (65-175) Total Iron Binding Capacity 204 ug/dL (250-425) Percent Iron Saturation 5.4 % (20-55) Total Bilirubin 0.8 mg/dL (0.2-1.0) Aspartate Amino Transferase (AST) 30 U/L (13-40) Alanine Aminotransferase (ALT) 30 U/L (7-40) Alkaline Phosphatase 312 U/L (46-116) Total Protein 6.0 g/dL (5.7-8.2) Albumin 2.6 g/dL (3.2-4.8) Differential Total Cells Counted 100.0 (100) Neutrophils % (Manual) 92 (37.0-80.0) Band Neutrophils % (Manual) 0 Lymphocytes % (Manual) 4 (10.0-50.0) Monocytes % (Manual) 4 (0-12) Eosinophils % (Manual) 0 (0-7) Basophils % (Manual) 0 (0.0-2.0) Metamyelocytes % (manual) 0 Myelocytes % (Manual) 0 Promyelocytes % (Manual) 0 Blast Cells % (Manual) 0 Reactive Lymphocytes 0 Platelet Estimate Increased Hypochromasia (manual) Moderate Anisocytosis (manual) Moderate Microcytosis Moderate Random Vancomycin Level 8.5 ug/mL (5-10) Test 01/18/24 10:59 01/18/24 00:15 01/17/24 06:00 01/16/24 18:25 POC Glucose 142 mg/dl (70-106) Stool Occult Blood Positive (Negative) Stool Occult Blood Sample #3 (Negative) Reticulocyte Count (auto) 1.84 % (0.5-1.5) Magnesium Level 1.7 mg/dL (1.6-2.6) Gamma Glutamyl Transpeptidase 219 U/L (<73) Lactate Dehydrogenase 135 U/L (120-246) Vitamin B12 Level 1406 pg/mL (211-911) Vitamin D 25-Hydroxy 29.0 ng/mL (30.0-100) Anti-Nuclear Antibody Comment Comment (.) Cytoplasmic ANCA (c-ANCA) Antibody <1:20 titer (Neg:<1:20) Anti-Proteinase 3 (c-ANCA) 2.3 units (0.0-0.9) Atypical p-ANCA <1:20 titer (Neg:<1:20) Perinuclear ANCA (p-ANCA) Antibody 1:320 titer (Neg:<1:20) Myeloperoxidase Antibody <0.2 units (0.0-0.9) GRACIE-1 Antibody <0.2 AI (0.0-0.9) SS-A/Ro Antibody <0.2 AI (0.0-0.9) SS-B/La Antibody <0.2 AI (0.0-0.9) Sm Antibody <0.2 AI (0.0-0.9) LEATHER DRESSER Antibody <0.2 AI (0.0-0.9) Scl-70 (Scleroderma) Antibody <0.2 AI (0.0-0.9) Anti-Double Strand DNA Antibody <1 IU/mL (0-9) Chromatin Antibody <0.2 AI (0.0-0.9) Centromere B Antibody <0.2 AI (0.0-0.9) Rapid Plasma Reagin Non reactive (Non Reactive) HIV (1&2) Antibody Negative (Negative) Urine Color Yellow (Yellow) Urine Clarity Clear (Clear) Urine pH 5.5 (5.0-9.0) Urine Specific [place] 1.050 (1.001-1.035) Urine Protein Trace (Negative) Urine Ketones Trace (Negative) Urine Blood Negative /uL (Negative) Urine Nitrite Negative (Negative) Urine Bilirubin Negative (Negative) Urine Urobilinogen Normal mg/dL (Negative) Urine Leukocyte Esterase Negative /uL (Negative) Urine RBC 1 /hpf (0 - 3) Urine WBC 3 /hpf (0 - 3) Urine Squamous Epithelial Cells Few /hpf (<5) Urine Bacteria None seen /hpf (None Seen) Urine Mucus Few (None Seen) Urine Glucose Normal mg/dL (Normal) Urine Opiates Screen Neg (NEGATIVE) Urine Fentanyl Screen Neg (NEGATIVE) Urine Barbiturates Screen Neg (NEGATIVE) Urine Phencyclidine Screen Neg (NEGATIVE) Urine Amphetamines Screen Neg (NEGATIVE) Urine Benzodiazepines Screen Neg (NEGATIVE) Urine Cocaine Screen Neg (NEGATIVE) Urine Cannabinoids Screen Neg (NEGATIVE) Test 01/16/24 06:39 01/16/24 02:30 Erythrocyte Sedimentation Rate 96 mm/hr (0-20) Haptoglobin 340 mg/dL (17-317) Prothrombin Time 13.6 sec (9.3-11.8) Prothrombin Time INR 1.31 (0.9-1.15) Activated Partial Thromboplast Time 29.8 SEC (24.5-34.5) Ferritin 23.4 ng/mL (22-322) C-Reactive Protein High Sensitivity 15.29 mg/dL (<1.0) Thyroid Stimulating Hormone (TSH) 3.10 uIU/mL (0.55-4.78) Plasma/Serum Blood Alcohol < 3.0 mg/dL (<10) Hepatitis B Surface Antigen Negative (Negative) Hepatitis B Surface Antibody Negative (Negative) Hepatitis C Antibody Negative (Negative) Large Platelets Few Poikilocytosis (manual) Slight Target Cells Few Schistocytes Few Other Laboratory Tests 01/20/24 06:21 Brief Hx & Hospital Course: HPI Patient is a 28-year-old male with a past medical history of ulcerative colitis and chronic anemia came to the ED with a chief complaint of multiple tender Swellings. The patient originally from [place] and is visiting his sister who lives in [place], he came along with the parents to [place] on a car, started on when he noticed a swelling developing above the left lateral malleolus, gradually enlarging, tender and erythematous with a central developing pus point , it is about 2x2 cm in size. Patient had 3 other small swellings, 2 in the groin and 1 in the left arm on the ventral aspect near the elbow. Patient reports feeling feverish since the time he has had these swellings develop. Reports passing 1-2 watery loose stools since the past one week, brownish in color without any apparent blood. Patient reports that on the way from [place] to [place] this stopped at a motel 1st day overnight at motel but is not sure if he was bitten by any insects. Patient denied dizziness, nausea, vomiting, headache. Patient also reports cough since the last 1 week with the associated left sided chest pain which he attributes to sleeping in a wrong way. Past medical history: Chronic anemia, ulcerative colitis Past surgical history: None reported Social history: Lives with parents and denies smoking, alcohol, drug use Family history: Denies history of inflammatory bowel disease in family Home medications: denies taking any salvage determiner medication for [facility] Hospital course Patient on admission had fever, elevated white cell counts, tachycardia. He had 3 swelling, above the left lateral malleolus, below the left elbow and one in the right side of groin which gradually developed ulcers with purulent drainage and undermined edges. Wound cultures, blood cultures were sent. Patient was given IV fluids, IV vancomycin, IV Zosyn which was later switched to IV cefepime and metronidazole, IV fluconazole. Wound cultures grew Enterococcus faecalis sensitive to vancomycin. Initial blood cultures after 72 hours showed no growth. Repeat blood cultures after 24 hours showed no growth. Urine cultures showed no growth. WBC kept increasing despite IV antibiotics, differential leukocyte count showing neutrophilia but no bands. Patient had a low Hemoglobin and was given 2 units of PRBCs in the ER, following which his was stable around 8 g/dl throughout the hospital stay. Patient initially did not report of diarrhoea, but later reported loose watery stools with positive stool occult blood but no gross hematochezia/melena. Hepatitis B and C antibody were negative. HIV 1&2 antibody were negative. Infectious disease were consulted who recommended continuing IV antibiotics and recommended biopsy of skin lesions and considering initiation of steroid therapy for suspected pyoderma gangrenosum. Patient has splenic hematoma vs abscess with MR abdomen with contrast showed Complex fluid collection along the superior and lateral aspects of the spleen, appears to be mostly subcapsular measuring up to 8.0 cm in AP dimension, 2.6 cm in transverse dimension, and 8.6 cm in craniocaudal dimension , full description of the imaging in the section of discharge ssummary below. Patient had worsening left flank pain and tenderness. Surgery were consulted regarding the splenic hematoma and they recommended urgent transfer to higher level of care for further management. Patient at the time of discharge is in stable condition, vitals stable, temprature upto 100.6F, saturing >95% on room air. Discharge Diagnosis # Sepsis # Leukocytosis with left shift # Ulcerative colitis Flare up with ?pyoderma gangrenosum # ?pyoderma gangrenosum # splenic abcess vs splenic hematoma # Microcytic hypochromic anemia # Iron deficiency # Splenic hematoma with acute bleeding Consults/Reason for consult Infectious disease Consultation d/t sepsis, ?pyoderma gangrenosum Surgical consultation d/t splenic abscess/hematoma, biopsy of pyoderma gangrenosum Operations or Procedures 01/16/2024 CT Abdomen pelvis with and without IV contrast FINDINGS: There is a mildly hypodense collection along the lateral margins of the spleen measuring 1.9 cm in maximum diameter. The collection demonstrates Hounsfield unit measurements higher than simple fluid. There is scalloping along the lateral margins of the spleen and a wedge defect in the upper spleen. Fluid does not appear to be free fluid.. There are also several nonspecific hypodense lesions in the spleen measuring up to 1.1 cm. The liver, gallbladder, pancreas, kidneys, adrenal glands, appear within normal limits. There is no evidence of abdominal lymphadenopathy. There is no free fluid or free air. The small and large bowel loops demonstrate normal caliber and appear within normal limits.. The abdominal aorta and IVC appear within normal limits. The bladder appears unremarkable. The pelvic organs appears unremarkable. There is no evidence of a pelvic mass or lymphadenopathy. There is no free fluid collection. There is a nonspecific 1.7 cm cystic structure along the right external iliac vessels. There is small left pleural effusion. There is no acute osseous abnormality. IMPRESSION: 1. Mildly hypodense collection along the lateral margins of the spleen measuring 1.9 cm in diameter. The collection does not appear to be simple fluid and there is scalloping along the lateral margins of the spleen. There is a wedge defect in the upper spleen. The findings may represent changes related to splenic laceration and subcapsular hematoma. Splenic abscess is not entirely excluded. Clinical correlation is recommended. If warranted, further evaluation with cT- guided aspiration may be performed. 2. Several nonspecific hypodense lesions in the spleen measuring up to 1.1 cm. These do not appear to be simple cysts. Further evaluation with multiphase MRI abdomen is recommended. 3. Nonspecific 1.7 cm cystic structure along the right external iliac vessels. 4. Small left-sided pleural effusion. 01/18/2024 MRI Abdomen with contrast FINDINGS: Complex fluid collection along the superior and lateral aspects of the spleen, appears to be mostly subcapsular measuring up to 8.0 cm in AP dimension, 2.6 cm in transverse dimension, and 8.6 cm in craniocaudal dimension. There are areas of T1 hyperintense signal within the collections on the precontrast images, suggesting hemorrhage. There is no internal enhancement associated with the collection. Mild rim enhancement noted. Additional smaller fluid collections are seen in the spleen, measuring up to 1.6 cm, 1.5 cm, and 1.0 cm, respectively. There is also a small amount of mildly complex fluid adjacent to the spleen. Areas of heterogeneous signal and enhancement also noted in the spleen, may be sequela of laceration, if there has been recent trauma/ injury. There is a small left pleural fluid collection also noted. Suspected trace free fluid elsewhere in the abdomen, including adjacent to the kidneys and liver. The liver, pancreas, adrenal glands, and kidneys are unremarkable. No gallstones visualized in the gallbladder. No abdominal aortic aneurysm. No other significant abnormality identified. IMPRESSION: 1. Complex fluid collections in the spleen, most likely hematomas with suspected splenic laceration. Correlate with clinical findings. 2. Additional areas of trace free fluid in the abdomen also noted and small left pleural effusion. 01/20/2024 CT Chest/abdomen/pelvis with IV contrast FINDINGS: There is small left pleural effusion with atelectasis in the left lung base. There is no lung consolidation. There is no suspicious appearing pulmonary nodule or mass. There is no evidence of pneumothorax. There is no evidence of a mediastinal mass or lymphadenopathy. There is no hilar or axillary lymphadenopathy. The heart size within normal limits. There is no pericardial effusion. There is redemonstration of hypodense collection along the lateral margins of the spleen measuring approximately 2 cm in diameter. The attenuation of the fluid is greater than simple fluid. Fluid demonstrated heterogeneous signal on prior MR with areas of intrinsic hyperintense T1 signal. There is scalloping along the lateral margins of the spleen. Also seen is a wedge defect in the upper spleen spleen. Additional hypodense foci are seen in the spleen which demonstrated hyperintense T2 signal on prior MR. The liver, gallbladder, pancreas, kidneys, and adrenal glands appear within normal limits. There are trace pockets of ascites in the abdomen. There is no free air. There is no evidence of abdominal lymphadenopathy. The stomach grossly appears unremarkable.The small and large bowel loops demonstrate normal caliber. The abdominal aorta and IVC appear within normal limits. The bladder appears unremarkable. Pelvic organ appears within normal limits. There is no evidence of a pelvic mass or lymphadenopathy. There is no free fluid collection. There is a stable nonspecific 1.7 cm cystic structure along the right external iliac vessels. There is no acute osseous abnormality. IMPRESSION: 1. Redemonstration of hypodense collection along the lateral margins of the spleen measuring approximately 2 cm in diameter. The fluid demonstrated heterogeneous signal on prior MRI with areas of intrinsic hyperintense T1 signal suggestive of subcapsular hematoma. There is scalloping of the lateral margins of the spleen along with wedge-shaped defect. The findings are suspicious for splenic laceration. Additional hypodense foci in the spleen likely represent collections of fluid/ hematoma in the spleen. Clinical correlation is recommended. 2. Small left pleural effusion with atelectasis in the left lung base. 3. Trace pockets of ascites in the abdomen. 4. Stable nonspecific 1.7 cm cystic structure along the right external iliac vein. Condition at Discharge: Higher Level of Care Final Diagnosis/Problems List # Sepsis # Leukocytosis with left shift # Ulcerative colitis Flare up with ?pyoderma gangrenosum # ?pyoderma gangrenosum # splenic abcess vs splenic hematoma # Microcytic hypochromic anemia # Iron deficiency # Splenic hematoma with acute bleeding Discharge Disposition: Acute Care Facility Discharge Instruct/Medications Diet: Regular Activity: No Restrictions, As Tolerated Medications: as per the transfer spreadsheet Discharge Statement: "Patient was advised to return to the ER or call 911 if any headaches, dizziness, shortness of breath, chest pain, abdominal pain, bleeding, fevers, or worsening of medical condition. Patient was counseled about treatment plan, medications, possible side effects, patientverbalized understanding. All questions were answered to the best of my ability. This discharge took greater then 30 minutes in planning, reviewing documentation, counseling the patient, and discussing with other team members." ASSESSMENT ASSESSMENT Assessment # Sepsis # Leukocytosis with left shift # Ulcerative colitis Flare up with ?pyoderma gangrenosum # ?pyoderma gangrenosum # splenic abcess vs splenic hematoma # Microcytic hypochromic anemia # Iron deficiency # Splenic hematoma with acute bleeding Date of Service: Jan 20, 2024 Billing Provider: RICHIE MILLER MD Common Visit Codes: 27195-MWB/OBS DISCH DAY >30min ANGELICA CARO RESIDENT Jan 20, 2024 18:04 RICHIE MILLER MD Jan 23, 2024 09:17
[2024-01-20] MEDS: IBUPROFEN 400 MG TAB PO PRN (18:49)
--- NOTE | 2024-01-20 22:21 | DVHPN2 ---
Consult Progress Note Date Seen: Jan 20, 2024 Subjective Patient reports: Other (is shivering , pale faced , has a fever and chills ,) Objective vital signs Vital Sign Date Time Temp Pulse Resp B/P (MAP) Pulse Ox O2 Delivery O2 Flow Rate FiO2 01/20/24 19:49 98.5 01/20/24 16:41 107 20 112/75 (87) 100 01/20/24 07:38 Room Air* 0 21 Total Intake and Output 01/19/24 01/19/24 01/20/24 15:00 23:00 07:00 Intake Total 350 ml 950 ml 1650 ml Output Total 300 ml Balance 350 ml 950 ml 1350 ml medications Current Medications Medications Dose Ordered Sig/Latoya Route Start Time Stop Time Status Last Admin Dose Admin Nitroglycerin 0.4 mg Q5MINP PRN SL 01/16/24 05:15 Morphine Sulfate 2 mg Q30M PRN IV 01/16/24 05:15 Pantoprazole Sodium 40 mg DAILY IV 01/16/24 10:00 01/20/24 08:58 40 MG Vancomycin HCl 0 ml @ 0 mls/hr UD IV 01/16/24 11:00 Lactated Ringer's 1,000 ml @ 150 mls/hr Q6H40M IV 01/16/24 18:30 01/20/24 16:13 150 MLS/HR Ergocalciferol 50,000 unit Q7D PO 01/18/24 09:00 01/18/24 09:12 50,000 UNIT Vancomycin HCl 250 ml @ 250 mls/hr Q8H IV 01/19/24 11:00 01/20/24 18:42 250 MLS/HR Acetaminophen 650 mg Q6HR PO 01/19/24 12:00 01/20/24 17:01 650 MG Cefepime HCl 50 ml @ 12.5 mls/hr Q8HR IV 01/19/24 22:00 01/20/24 21:34 12.5 MLS/HR Metronidazole 100 ml @ 100 mls/hr Q8HR IV 01/19/24 14:00 01/20/24 21:25 100 MLS/HR Ferrous Sulfate 325 mg DAILY@LUNCH PO 01/20/24 12:00 01/20/24 10:34 325 MG Ibuprofen 400 mg Q6HP PRN PO 01/20/24 18:15 01/20/24 18:49 400 MG Physical Exam: - General: Pale, appears malnourished. - Neck: Supple. No masses. - HEENT: PERRL. Normal lids and conjunctiva. Moist mucous membranes. Oropharynx without lesions, exudates, or excessive erythema. Normal appearance of the external aspects of the nose and ears. - Heart: Regular rhythm, normal rate. No murmur. No lower extremity edema. - Lungs: Normal respiratory effort. Clear to auscultation bilaterally. No wheezes. No crackles. - Abdomen: Soft. Non-tender. Non-distended. No masses or abdominal hernia. - Msk: No digital cyanosis. Normal strength and tone in all four limbs. - Skin: Warm and dry. Wounds on the left forearm and groin with clear boundaries, violaceous borders, tender, draining exudate at the center. - Neuro: Alert. No facial droop or slurred speech. Extraocular movements intact. Sensation intact to soft touch in all four limbs. - Psych: Appropriate mood. Full affect. Oriented to person, place, time, and situation. laboratory and microbiology Laboratory Tests 01/20/24 06:21 Test 01/20/24 06:21 Range/Units Serum Glucose 93 74-106 mg/dL Problem List/Assessment/Plan Problems(with codes): (1) Ulcerative colitis (2) Cellulitis (3) Wounds, multiple open, arm (4) Symptomatic anemia (5) Sepsis Problem List/Assessment/Plan (1) Sepsis (2) Ulcerative colitis (3) Cellulitis (4) Wounds, multiple open, arm (5) Symptomatic anemia Plan/Recommendation ASSESSMENT AND PLAN: ID Problem List: - Pyoderma gangrenosum - Suspected splenic abscess vs. hematoma - Inflammatory bowel disease (ulcerative colitis) - Leukocytosis - Sepsis Assessment: This is a 28 y.o. male with a past medical history of osteoporosis and inflammatory bowel disease (ulcerative colitis), who presents with painful ulcers on his left forearm and groin area. The patient reports that these wounds developed ulcers, which ruptured and are painful. He has been feeling unwell for the last three days prior to admission. He is originally from [place] and recently traveled to [facility] to visit family. He endorses being bitten by bugs during his travel but is unsure of the type of insects. On examination, the patient appears pale and malnourished with a low BMI of 19.9. Vital signs are notable for fever (Tmax 101.5F) and tachycardia (HR 125 bpm). Physical exam reveals wounds on the left forearm and groin with clear boundaries, violaceous borders, tender, draining exudate at the center. Imaging studies include: - CT abdomen and pelvis showing a mildly hyperdense collection on the lateral margin of the spleen measuring 1.9 cm in diameter with scalloping along the lateral margins and a wedge defect in the upper spleen. Findings may represent splenic laceration or subcapsular hematoma; splenic abscess is not entirely excluded. Several nonspecific hypodensities within the spleen measuring 1.1 cm may represent simple cysts. MRI of the abdomen is recommended. - Ultrasound of the left forearm revealing a 0.6 x 0.5 x 0.6 cm cystic mass-like structure, which could represent a sebaceous cyst. - Chest X-ray showing no acute disease. - Blood cultures are no growth to date. Laboratory studies reveal leukocytosis. MRI abd w/. 1.9 cm hematoma of spleen - suspect pyodermic involvement of viscera likely aseptic but cannot rule out infection 01/18: wound culture is growing possible enterococcus 01/19: white count is 30.4 , Dr israel evluated patient and wants to hold off on biopsy in the setting of fevers and sepsis and recommends higher level of care . GI recommends avoiding steroids at this time for possible spleenic abscess Plan: - Continue Cefepime and flagyl - Continue vancomycin for broad-spectrum coverage. - Recommend biopsy of skin lesions, suspect splenic abscess is visceral manifestation of pyoderma gangrenosum. however since GI and general surgery are avoiding skin biopsy and treatment with steroids recommend higher level of care where patient can be monitored more closely - stop fluconazol - Follow up on wound cultures and adjust antibiotics as necessary. - Monitor vital signs and laboratory studies for any changes. Isolation Precautions: Standard Assessment and plan were discussed with the patient as written above. Plan is subject to change pending incorporation of new incoming information/diagnostics. Updates may be added as addendum at the bottom (OR TOP) of this note. Thank you for the interesting consult. ID will continue to follow. Please contact Infectious Disease for any questions or concerns. Ana Martinez M.D. Plan discussed with: Other Dietary Evaluation Review Recommendations by RD: Decrease Calorie Intake Comments: 1) Consider HAROON 1 pkt BID for wounds 2) Continue current plan of care Expected Outcomes/Goals: F/U in 3-5 days CC Plasma Assessment Blood Product Administration S: [id number] ANA MARTINEZ MD Jan 20, 2024 22:21
[2024-01-21] VITALS (9 sets, daily range): BP systolic 102–128; BP diastolic 60–75; PULSE 66–131; RESP 18–20; TEMP 97.5–102.7; O2SAT 93–100
[2024-01-21 06:43] LABS: Alanine Aminotransferase 21 U/L (7-40); Anion Gap 10 (5-15); Aspartate Aminotransferase 26 U/L (13-40); BUN/Creatinine Ratio 13.1 (10.0-20.0); Blood Urea Nitrogen 13 mg/dL (9-23); Carbon Dioxide 21 mmol/L (20-31); Chloride 102 mmol/L (98-107); Glucose 89 mg/dL (74-106); Potassium 4.6 mmol/L (3.5-5.1)
[2024-01-21 06:44] LABS: Albumin 2.3 g/dL (3.2-4.8); Alkaline Phosphatase 256 U/L (46-116); Bilirubin, Total 0.7 mg/dL (0.2-1.0); Calcium 8.4 mg/dL (8.7-10.4); Sodium 133 mmol/L (136-145); Total Protein 5.6 g/dL (5.7-8.2)
--- NOTE | 2024-01-21 10:44 | DVHINCON2 ---
Date of service: Jan 21, 2024 Family History: Patient reports no known family medical history. Allergies: Coded Allergies: NO KNOWN ALLERGIES (Unverified , 01/16/24) Current Medications Current Medications Medications (Trade) Dose Ordered Sig/Latoya Route PRN Reason Start Time Stop Time Status Last Admin Ferrous Sulfate 325 mg DAILY@LUNCH PO 01/20/24 12:00 01/20/24 10:34 Ibuprofen (Motrin Tablet) 400 mg Q6HP PRN PO TEMP GREATER THAN 100 01/20/24 18:15 01/20/24 18:49 Vital Signs Vital Signs Date Time Temp Pulse Resp B/P (MAP) Pulse Ox O2 Delivery O2 Flow Rate FiO2 01/21/24 09:00 98.7 111 18 110/60 (77) 100 98.7 01/20/24 20:00 Room Air* 0 21 Labs/Diagnostic Data Labs Test 01/21/24 05:16 01/20/24 10:23 01/20/24 06:21 01/19/24 08:33 Range/Units Sodium Level 133 L 136-145 mmol/L Potassium Level 4.6 3.5-5.1 mmol/L Chloride Level 102 98-107 mmol/L Carbon Dioxide Level 21 20-31 mmol/L Anion Gap 10 5-15 Blood Urea Nitrogen 13 9-23 mg/dL Creatinine 0.99 0.700-1.30 mg/dL Glomerular Filtration Rate Calc 108 >90 mL/min BUN/Creatinine Ratio 13.1 10.0-20.0 Serum Glucose 89 74-106 mg/dL Calcium Level 8.4 L 8.7-10.4 mg/dL Total Bilirubin 0.7 0.2-1.0 mg/dL Aspartate Amino Transferase (AST) 26 13-40 U/L Alanine Aminotransferase (ALT) 21 7-40 U/L Alkaline Phosphatase 256 H 46-116 U/L Total Protein 5.6 L 5.7-8.2 g/dL Albumin 2.3 L 3.2-4.8 g/dL Lactic Acid Level 1.3 0.4-2.0 mmol/L Vancomycin Level Trough 10.4 H 5-10 ug/mL Eosinophils (%) (Auto) 0.8 0.0-7.0 % Eosinophils # (Auto) 0.3 0-0.8 10 ^3/uL Basophils # (Auto) 0.1 0-0.2 10 ^3/uL Nucleated Red Blood Cells 0.0 % Iron Level 11 L 65-175 ug/dL Total Iron Binding Capacity 204 L 250-425 ug/dL Percent Iron Saturation 5.4 L 20-55 % Differential Total Cells Counted 100.0 100 Neutrophils % (Manual) 92 H 37.0-80.0 Band Neutrophils % (Manual) 0 Lymphocytes % (Manual) 4 L 10.0-50.0 Monocytes % (Manual) 4 0-12 Eosinophils % (Manual) 0 0-7 Basophils % (Manual) 0 0.0-2.0 Metamyelocytes % (manual) 0 Myelocytes % (Manual) 0 Promyelocytes % (Manual) 0 Blast Cells % (Manual) 0 Reactive Lymphocytes 0 Platelet Estimate Increased Hypochromasia (manual) Moderate Anisocytosis (manual) Moderate Microcytosis Moderate Test 01/19/24 05:58 01/18/24 10:59 01/18/24 00:15 01/17/24 06:00 Range/Units Random Vancomycin Level 8.5 5-10 ug/mL POC Glucose 142 H 70-106 mg/dl Stool Occult Blood Positive Negative Stool Occult Blood Sample #3 Negative Reticulocyte Count (auto) 1.84 H 0.5-1.5 % Magnesium Level 1.7 1.6-2.6 mg/dL Gamma Glutamyl Transpeptidase 219 H <73 U/L Lactate Dehydrogenase 135 120-246 U/L Vitamin B12 Level 1406 H 211-911 pg/mL Vitamin D 25-Hydroxy 29.0 L 30.0-100 ng/mL Anti-Nuclear Antibody Comment Comment . Cytoplasmic ANCA (c-ANCA) Antibody <1:20 Neg:<1:20 titer Anti-Proteinase 3 (c-ANCA) 2.3 H 0.0-0.9 units Atypical p-ANCA <1:20 Neg:<1:20 titer Perinuclear ANCA (p-ANCA) Antibody 1:320 Neg:<1:20 titer Myeloperoxidase Antibody <0.2 0.0-0.9 units GRACIE-1 Antibody <0.2 0.0-0.9 AI SS-A/Ro Antibody <0.2 0.0-0.9 AI SS-B/La Antibody <0.2 0.0-0.9 AI Sm Antibody <0.2 0.0-0.9 AI KNOT TIER Antibody <0.2 0.0-0.9 AI Scl-70 (Scleroderma) Antibody <0.2 0.0-0.9 AI Anti-Double Strand DNA Antibody <1 0-9 IU/mL Chromatin Antibody <0.2 0.0-0.9 AI Centromere B Antibody <0.2 0.0-0.9 AI Rapid Plasma Reagin Non reactive Non Reactive HIV (1&2) Antibody Negative Negative Test 01/16/24 18:25 01/16/24 06:39 01/16/24 02:30 Range/Units Urine Color Yellow Yellow Urine Clarity Clear Clear Urine pH 5.5 5.0-9.0 Urine Specific Benson 1.050 H 1.001-1.035 Urine Protein Trace H Negative Urine Ketones Trace Negative Urine Blood Negative Negative /uL Urine Nitrite Negative Negative Urine Bilirubin Negative Negative Urine Urobilinogen Normal Negative mg/dL Urine Leukocyte Esterase Negative Negative /uL Urine RBC 1 0 - 3 /hpf Urine WBC 3 0 - 3 /hpf Urine Squamous Epithelial Cells Few <5 /hpf Urine Bacteria None seen None Seen /hpf Urine Mucus Few None Seen Urine Glucose Normal Normal mg/dL Urine Opiates Screen Neg NEGATIVE Urine Fentanyl Screen Neg NEGATIVE Urine Barbiturates Screen Neg NEGATIVE Urine Phencyclidine Screen Neg NEGATIVE Urine Amphetamines Screen Neg NEGATIVE Urine Benzodiazepines Screen Neg NEGATIVE Urine Cocaine Screen Neg NEGATIVE Urine Cannabinoids Screen Neg NEGATIVE Erythrocyte Sedimentation Rate 96 H 0-20 mm/hr Haptoglobin 340 H 17-317 mg/dL Prothrombin Time 13.6 H 9.3-11.8 sec Prothrombin Time INR 1.31 H 0.9-1.15 Activated Partial Thromboplast Time 29.8 24.5-34.5 SEC Ferritin 23.4 22-322 ng/mL C-Reactive Protein High Sensitivity 15.29 H <1.0 mg/dL Thyroid Stimulating Hormone (TSH) 3.10 0.55-4.78 uIU/mL Plasma/Serum Blood Alcohol < 3.0 <10 mg/dL Hepatitis B Surface Antigen Negative Negative Hepatitis B Surface Antibody Negative Negative Hepatitis C Antibody Negative Negative Large Platelets Few Poikilocytosis (manual) Slight Target Cells Few Schistocytes Few Microbiology Date/Time Source Procedure Growth Status 01/19/24 10:50 Blood Blood Culture - Preliminary NO GROWTH AFTER 24 HOURS OF INCUBATION. 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 physicians piut in an order for transfer to another facility and after I examined and talked to the patient the man at his bedside informed me that they are waiting to be transferred to a hospital in [place]. Patient has history of Ulcerative Colitis for which he is currently not receiving any treatment(self discontinued), he is a non smoker denies use of drugs or drinking alcohol, denies any abdominal injuries(falls or punches), he has what appears on CT scan to be an old splenic laceration with an associate hematoma and has significant leukocytosis. This could represent an infected abscessed hematoma. I had ordered an Echo cardiogram to r/o endocardial vegetations, which are sometimes a source for splenic abscess formation, Also if he were to need a splenectomy he should receive Pneumovax vaccination prior to the operation. Splenectomy would only be necessary if radiology does not do a percutaneous needle aspiration. On examination he is a slender, chronically ill appearing man with tender left upper quadrant of his abdomen, no splinter hemorrhages are evident, In view of his impending transfer, I will sign off . all questions answered. Plan discussed with: Patient ANGELA LOVELACE MD Jan 21, 2024 10:44
[2024-01-21 10:54] LABS: Hemoglobin 7.6 g/dL (13.5-17.5)
[2024-01-21 10:55] LABS: Hematocrit 25.7 % (41.0-53.0); Mean Corpuscular Hemoglobin 18.6 pg (28.0-32.0); Mean Corpuscular Hgb Conc. 29.6 g/dL (32.0-36.0); Mean Corpuscular Volume 62.9 fL (80.0-100.0); Platelet Count (auto) 481 10^3/uL (140-450); Red Blood Cells 4.08 10^6/uL (4.5-5.90); White Blood Cell 29.1 10^3/uL (4.4-10.8)
[2024-01-21 10:58] LABS: Red Cell Distribution Width 27.5 % (11.8-14.3)
[2024-01-21 10:59] LABS: Band Neutrophils % (manual) 0; Basophils % (manual) 0 (0.0-2.0); Blast Cells 0; Metamyelocytes % 0; Myelocytes % 0; Promyelocytes % 0; Reactive Lymphocytes 0
[2024-01-21 11:35] LABS: Anisocytosis Slight; Eosinophils % (manual) 2 (0-7); Lymphocytes % (manual) 1 (10.0-50.0); Monocytes % (manual) 5 (0-12)
[2024-01-21 11:36] LABS: Hypochromia Moderate; Platelet Estimate Increased
[2024-01-21] MEDS: LACTATED RINGER'S 1,000 ML IV SCH (12:56)
--- NOTE | 2024-01-21 14:46 | DVHPNRES ---
Progress Note Date Seen: Jan 21, 2024 Resident Creating Document: SHARI JOHNSON RESIDENT Medical Necessity Reason Pt with a Central, PICC or Fol: No Subjective Review of Systems Patient was seen and examined at bedside. Patient continued to complain about left flank pain, poor appetite, no shortness a breath, chest pain. No fevers since last night, he appears pale, fatigue, general malaise. We spoke to [facility] which a success the patient, pending bed availability. WBC came down a little bit, hemoglobin seems stable. Continue broad-spectrum antibiotics. Objective vital signs Vital Sign Date Time Temp Pulse Resp B/P (MAP) Pulse Ox O2 Delivery O2 Flow Rate FiO2 01/21/24 12:55 100.7 01/21/24 09:00 111 18 110/60 (77) 100 01/20/24 20:00 Room Air* 0 21 Total Intake and Output 01/20/24 01/20/24 01/21/24 15:00 23:00 07:00 Intake Total 450 ml 1450 ml 870 ml Output Total 400 ml 625 ml Balance 450 ml 1050 ml 245 ml medications Current Medications Medications Dose Ordered Sig/Latoya Route Start Time Stop Time Status Last Admin Dose Admin Nitroglycerin 0.4 mg Q5MINP PRN SL 01/16/24 05:15 Morphine Sulfate 2 mg Q30M PRN IV 01/16/24 05:15 Pantoprazole Sodium 40 mg DAILY IV 01/16/24 10:00 01/21/24 09:11 40 MG Vancomycin HCl 0 ml @ 0 mls/hr UD IV 01/16/24 11:00 Ergocalciferol 50,000 unit Q7D PO 01/18/24 09:00 01/18/24 09:12 50,000 UNIT Acetaminophen 650 mg Q6HR PO 01/19/24 12:00 01/21/24 12:55 650 MG Cefepime HCl 50 ml @ 12.5 mls/hr Q8HR IV 01/19/24 22:00 01/21/24 06:32 12.5 MLS/HR Metronidazole 100 ml @ 100 mls/hr Q8HR IV 01/19/24 14:00 01/21/24 14:18 100 MLS/HR Ferrous Sulfate 325 mg DAILY@LUNCH PO 01/20/24 12:00 01/21/24 12:55 325 MG Ibuprofen 400 mg Q6HP PRN PO 01/20/24 18:15 01/20/24 18:49 400 MG Lactated Ringer's 1,000 ml @ 70 mls/hr [id number] IV 01/21/24 12:45 01/21/24 12:56 70 MLS/HR Examination Gen - no pallor, no icterus, no cyanosis, no clubbing, no LAD, no edema . Skin - Patients skin is warm and dry. HEENT - normocephalic, atraumatic, dry mucous membranes. Neck - full ROM, no LAD, no JVD Pulmonary - B/L vesicular breath sounds. no crackles , no wheezing, no stridor. cardiovascular - normal S1,S2 heard. no murmurs heard. peripheral pulses normal radial 2+, pedal 2+. capillary refill normal <2 secs. GI - soft abdomen with tenderness to palpation in the left subcostal region in the mid axiallary line.no hepatospleenomegaly. Bowel sounds normoactive Neurological - Patient is A/O X 3 . Bilateral upper extremity strength 5/5, bilateral lower extremity strength 5/5, no facial droop, normal speech, no tremor, no sensory deficiets. Ulcer # 1X1 cm ulcer in the left upper forearm with undermined edges. # 1X1 cm ulcer in the left upper groin with undermined edges and oozing white yellowish fluid and smaller ulcer seen adjacent to it # 1 X 1 cm ulcer above the left lateral malleolus - no Osler nodes, no Janeway lesions, no splinter hemorrhages in the nails seen. laboratory and microbiology Laboratory Tests 01/21/24 10:26 01/21/24 05:16 Test 01/21/24 05:16 Range/Units Serum Glucose 89 74-106 mg/dL Microbiology Date/Time Source Procedure Growth Status 01/19/24 10:50 Blood Blood Culture - Preliminary NO GROWTH AFTER 48 HOURS OF INCUBATION. Resulted 01/17/24 11:14 Groin Gram Stain - Final Complete 01/17/24 11:14 Wound Culture - Final Enterococcus faecalis Complete 01/16/24 18:25 Voided Urine Urine Culture - Final Complete Labs and/or images reviewed: Labs reviewed by me, Image(s) reviewed by me Problem List/Assessment/Plan Problem List/Assessment/Plan # Sepsis likely due to ?Bacteremia # Bacteremia likely from ?insect bite ?wounds # ?splenic abcess - wound culture pending - blood culture after 24 hrs shows no growth - urine culture preliminary shows no growth - CT abdomen pelvis with and without contrast mildly hypodense collection seen along the lateral margin of the spleen measuring 1.9 cm in diameter, scalloping along the lateral margins of the spleen, wedge-shaped defect in the upper spleen - Patient is on IV fluids LR @ 70ml/hr - IV Vancomycin + zosyn - doxycycline 100mg bid po, stopped on 01/18/24 - on fluconazole 400mg IV daily - ID consulted with Dr Martinez - Recommend biopsy of skin lesions, - after biopsy, consider initiating steroid therapy for suspected pyoderma gangrenosum. # Ulcerative colitis Flare up with ?pyoderma gangrenosum - Elevated ESR and CRP - DUSTIN panel negative - ANCA panel pending - liver panel shows elevated alkaline phosphatase # ? splenic abscess # ? splenic laceration # ? subscapular hematoma -CT abdomen pelvis with and without contrast mildly hypodense collection seen along the lateral margin of the spleen measuring 1.9 cm in diameter, scalloping along the lateral margins of the spleen, wedge-shaped defect in the upper spleen - Further investigation with CT guided aspiration may be performed - MRI abdomen with contrast # Microcytic hypochromic anemia # Iron deficiency ? Thalassemia ? Anemia of chronic disease - Patient given 2 units of PRBC in the ER - Marked microcytosis and hypochromia seen - Peripheral blood smear pending 01/18 - ID consulted with Dr. Martinez, recommended - continuing on IV antibiotics - Recommend biopsy of skin lesions, - after biopsy, consider initiating steroid therapy for suspected pyoderma gangrenosum. - MR abdomen with contrast showed shows Complex fluid collection along the superior and lateral aspects of the spleen, appears to be mostly subcapsular measuring up to 8.0 cm in AP dimension, 2.6 cm in transverse dimension, and 8.6 cm in craniocaudal dimension. Additional smaller fluid collections are seen in the spleen, measuring up to 1.6 cm, 1.5 cm, and 1.0 cm, respectively. - WBC went up. - Patient had fevers upto 102F, put on scheduled acetaminophen q6hrs and cooling measures - Surgery consulted with , skin biopsy and splenectomy deferred as patient will be transferred to higher level of care Patient was accepted at [facility] see below transfer for possible splenectomy or drainage of splenic abscess Goals of care discussed with the patient for over 33 minutes. Full code Plan discussed with Dr. Toledo Plan discussed with: Patient, Other (RN) My Orders My Orders Orders - SHARI JOHNSON RESIDENT Procedure Category Date Status Time * Recreation Establishment Manager CONS 01/20/24 Transmitted Consult Wound Culture W/ Gs RAÚL 01/21/24 Logged 12:32 Lactated Ringer's PHA 01/21/24 In Process 12:45 Complete Blood Count LAB 01/22/24 Verified 04:00 Creatinine LAB 01/22/24 Verified 04:00 Vancomycin,Random LAB 01/22/24 Verified 04:00 Dietary Evaluation Review Recommendations by RD: Decrease Calorie Intake Comments: 1) Consider HAROON 1 pkt BID for wounds 2) Continue current plan of care Expected Outcomes/Goals: F/U in 3-5 days CC Plasma Assessment Blood Product Administration S: [id number] Date of Service: Jan 21, 2024 Billing Provider: NATAN TOLEDO MD Common Visit Codes: [id number] INP/OBS CARE(HIGH) SHARI JOHNSON RESIDENT Jan 21, 2024 14:46 NATAN TOLEDO MD Jan 21, 2024 20:21
--- NOTE | 2024-01-21 22:07 | DVHPN2 ---
Progress Note - Dictate Date Seen: Jan 21, 2024 (Late entryPatient seen at 10:00 a.m.) Medical Necessity Reason Pt with a Central, PICC or Fol: No Subjective No new complaints Resting comfortably Right arm is swollen at CT site possibly infiltrated Patient complains of mild left upper quadrant pain There was no diarrhea or bleeding today Patient had self discontinued his medications for colitis vital signs Vital Sign Date Time Temp Pulse Resp B/P (MAP) Pulse Ox O2 Delivery O2 Flow Rate FiO2 01/21/24 21:40 100.3 01/21/24 16:44 123 18 109/75 (86) 97 01/21/24 08:20 Room Air* 0 21 Total Intake and Output 01/20/24 01/20/24 01/21/24 15:00 23:00 07:00 Intake Total 450 ml 1450 ml 870 ml Output Total 400 ml 625 ml Balance 450 ml 1050 ml 245 ml medications Current Medications Medications Dose Ordered Sig/Latoya Route Start Time Stop Time Status Last Admin Dose Admin Nitroglycerin 0.4 mg Q5MINP PRN SL 01/16/24 05:15 Morphine Sulfate 2 mg Q30M PRN IV 01/16/24 05:15 Pantoprazole Sodium 40 mg DAILY IV 01/16/24 10:00 01/21/24 09:11 40 MG Vancomycin HCl 0 ml @ 0 mls/hr UD IV 01/16/24 11:00 Ergocalciferol 50,000 unit Q7D PO 01/18/24 09:00 01/18/24 09:12 50,000 UNIT Acetaminophen 650 mg Q6HR PO 01/19/24 12:00 01/21/24 12:55 650 MG Cefepime HCl 50 ml @ 12.5 mls/hr Q8HR IV 01/19/24 22:00 01/21/24 15:27 12.5 MLS/HR Metronidazole 100 ml @ 100 mls/hr Q8HR IV 01/19/24 14:00 01/21/24 21:38 100 MLS/HR Ferrous Sulfate 325 mg DAILY@LUNCH PO 01/20/24 12:00 01/21/24 12:55 325 MG Ibuprofen 400 mg Q6HP PRN PO 01/20/24 18:15 01/21/24 20:40 400 MG Lactated Ringer's 1,000 ml @ 70 mls/hr [id number] IV 01/21/24 12:45 01/21/24 12:56 70 MLS/HR objective General: NAD, AAOX3 Chest: lung kirkpatrick clear to auscultation Heart: RRR, no murmur Abdomen: non-distended,+ LUQ tenderness to palpation, +BS Extremities right arm swelling, without clubbing cyanosis or edema laboratory and microbiology Laboratory Tests 01/21/24 10:26 01/21/24 05:16 Test 01/21/24 05:16 Range/Units Serum Glucose 89 74-106 mg/dL Problems(with codes): (1) Sepsis (2) Symptomatic anemia (3) Wounds, multiple open, arm (4) Cellulitis (5) Ulcerative colitis Prognosis Plan Continue supportive care at this time Patient is awaiting possible transfer to higher level of care for further management of his splenic laceration possible splenic abscess or hematoma Patient would not be a good candidate to start on IV steroids At this time we can consider adding mesalamine 800 mg p.o. twice a day Patient is currently on a clear liquid diet, possibly advance to full liquid diet Awaiting IBD panel Hepatitis panel, RPR and HIV negative Dietary Evaluation Review Recommendations by RD: Decrease Calorie Intake Comments: 1) Consider HAROON 1 pkt BID for wounds 2) Continue current plan of care Expected Outcomes/Goals: F/U in 3-5 days Plan discussed with: Patient CC Plasma Assessment Blood Product Administration S: [id number] YANIV WASHBURN MD Jan 21, 2024 22:07
--- NOTE | 2024-01-21 23:47 | DVHPN2 ---
Consult Progress Note Date Seen: Jan 21, 2024 Subjective Patient reports: Other (still looking pale and diaphoretic , has chill and a fever of 100.7 . still has ulcers on his elbows , ankles and groin with no drainage ) Objective vital signs Vital Sign Date Time Temp Pulse Resp B/P (MAP) Pulse Ox O2 Delivery O2 Flow Rate FiO2 01/21/24 22:00 102.7 129 18 114/65 (81) 97 102.7 01/21/24 20:00 Room Air* 0 21 Total Intake and Output 01/20/24 01/20/24 01/21/24 15:00 23:00 07:00 Intake Total 450 ml 1450 ml 870 ml Output Total 400 ml 625 ml Balance 450 ml 1050 ml 245 ml medications Current Medications Medications Dose Ordered Sig/Latoya Route Start Time Stop Time Status Last Admin Dose Admin Nitroglycerin 0.4 mg Q5MINP PRN SL 01/16/24 05:15 Morphine Sulfate 2 mg Q30M PRN IV 01/16/24 05:15 Pantoprazole Sodium 40 mg DAILY IV 01/16/24 10:00 01/21/24 09:11 40 MG Vancomycin HCl 0 ml @ 0 mls/hr UD IV 01/16/24 11:00 Ergocalciferol 50,000 unit Q7D PO 01/18/24 09:00 01/18/24 09:12 50,000 UNIT Acetaminophen 650 mg Q6HR PO 01/19/24 12:00 01/21/24 12:55 650 MG Cefepime HCl 50 ml @ 12.5 mls/hr Q8HR IV 01/19/24 22:00 01/21/24 22:49 12.5 MLS/HR Metronidazole 100 ml @ 100 mls/hr Q8HR IV 01/19/24 14:00 01/21/24 21:38 100 MLS/HR Ferrous Sulfate 325 mg DAILY@LUNCH PO 01/20/24 12:00 01/21/24 12:55 325 MG Ibuprofen 400 mg Q6HP PRN PO 01/20/24 18:15 01/21/24 20:40 400 MG Lactated Ringer's 1,000 ml @ 70 mls/hr [id number] IV 01/21/24 12:45 01/21/24 12:56 70 MLS/HR Physical Exam: - General: Pale, appears malnourished. - Neck: Supple. No masses. - HEENT: PERRL. Normal lids and conjunctiva. Moist mucous membranes. Oropharynx without lesions, exudates, or excessive erythema. Normal appearance of the external aspects of the nose and ears. - Heart: Regular rhythm, normal rate. No murmur. No lower extremity edema. - Lungs: Normal respiratory effort. Clear to auscultation bilaterally. No wheezes. No crackles. - Abdomen: Soft. Non-tender. Non-distended. No masses or abdominal hernia. - Msk: No digital cyanosis. Normal strength and tone in all four limbs. - Skin: Warm and dry. Wounds on the left forearm and groin with clear boundaries, violaceous borders, tender, draining exudate at the center. - Neuro: Alert. No facial droop or slurred speech. Extraocular movements intact. Sensation intact to soft touch in all four limbs. - Psych: Appropriate mood. Full affect. Oriented to person, place, time, and situation. laboratory and microbiology Laboratory Tests 01/21/24 10:26 01/21/24 05:16 Test 01/21/24 05:16 Range/Units Serum Glucose 89 74-106 mg/dL Problem List/Assessment/Plan Problems(with codes): (1) Ulcerative colitis (2) Cellulitis (3) Wounds, multiple open, arm (4) Symptomatic anemia (5) Sepsis Problem List/Assessment/Plan (1) Sepsis (2) Ulcerative colitis (3) Cellulitis (4) Wounds, multiple open, arm (5) Symptomatic anemia Plan/Recommendation ASSESSMENT AND PLAN: ID Problem List: - Pyoderma gangrenosum - Suspected splenic abscess vs. hematoma - Inflammatory bowel disease (ulcerative colitis) - Leukocytosis - Sepsis Assessment: This is a 28 y.o. male with a past medical history of osteoporosis and inflammatory bowel disease (ulcerative colitis), who presents with painful ulcers on his left forearm and groin area. The patient reports that these wounds developed ulcers, which ruptured and are painful. He has been feeling unwell for the last three days prior to admission. He is originally from [place] and recently traveled to [facility] to visit family. He endorses being bitten by bugs during his travel but is unsure of the type of insects. On examination, the patient appears pale and malnourished with a low BMI of 19.9. Vital signs are notable for fever (Tmax 101.5F) and tachycardia (HR 125 bpm). Physical exam reveals wounds on the left forearm and groin with clear boundaries, violaceous borders, tender, draining exudate at the center. Imaging studies include: - CT abdomen and pelvis showing a mildly hyperdense collection on the lateral margin of the spleen measuring 1.9 cm in diameter with scalloping along the lateral margins and a wedge defect in the upper spleen. Findings may represent splenic laceration or subcapsular hematoma; splenic abscess is not entirely excluded. Several nonspecific hypodensities within the spleen measuring 1.1 cm may represent simple cysts. MRI of the abdomen is recommended. - Ultrasound of the left forearm revealing a 0.6 x 0.5 x 0.6 cm cystic mass-like structure, which could represent a sebaceous cyst. - Chest X-ray showing no acute disease. - Blood cultures are no growth to date. Laboratory studies reveal leukocytosis. MRI abd w/. 1.9 cm hematoma of spleen - suspect pyodermic involvement of viscera likely aseptic but cannot rule out infection 01/18: wound culture is growing possible enterococcus 01/19: white count is 30.4 , Dr israel evluated patient and wants to hold off on biopsy in the setting of fevers and sepsis and recommends higher level of care . GI recommends avoiding steroids at this time for possible spleenic abscess 01/20: whitecount remains elevated at 29 Plan: - Continue Cefepime and flagyl - Continue vancomycin for broad-spectrum coverage. - Recommend biopsy of skin lesions, suspect splenic abscess is visceral manifestation of pyoderma gangrenosum. however since GI and general surgery are avoiding skin biopsy and treatment with steroids recommend higher level of care where patient can be monitored more closely - stop fluconazol - Follow up on wound cultures and adjust antibiotics as necessary. - Monitor vital signs and laboratory studies for any changes. Isolation Precautions: Standard Assessment and plan were discussed with the patient as written above. Plan is subject to change pending incorporation of new incoming information/diagnostics. Updates may be added as addendum at the bottom (OR TOP) of this note. Thank you for the interesting consult. ID will continue to follow. Please contact Infectious Disease for any questions or concerns. Ana Martinez M.D. Plan discussed with: Other Dietary Evaluation Review Recommendations by RD: Decrease Calorie Intake Comments: 1) Consider HAROON 1 pkt BID for wounds 2) Continue current plan of care Expected Outcomes/Goals: F/U in 3-5 days CC Plasma Assessment Blood Product Administration S: [id number] ANA MARTINEZ MD Jan 21, 2024 23:47
[2024-01-22] VITALS (9 sets, daily range): BP systolic 108–117; BP diastolic 64–74; PULSE 87–137; RESP 12–20; TEMP 97.6–98.2; O2SAT 97–100
[2024-01-22 06:12] LABS: Hematocrit 26.3 % (41.0-53.0); Hemoglobin 7.9 g/dL (13.5-17.5); Mean Corpuscular Hemoglobin 18.9 pg (28.0-32.0); Mean Corpuscular Hgb Conc. 29.9 g/dL (32.0-36.0); Mean Corpuscular Volume 63.2 fL (80.0-100.0); Platelet Count (auto) 468 10^3/uL (140-450); Red Blood Cells 4.16 10^6/uL (4.5-5.90); Red Cell Distribution Width 27.4 % (11.8-14.3); White Blood Cell 23.1 10^3/uL (4.4-10.8)
[2024-01-22 06:16] LABS: Band Neutrophils % (manual) 0; Basophils % (manual) 0 (0.0-2.0); Blast Cells 0; Metamyelocytes % 0; Myelocytes % 0; Promyelocytes % 0; Reactive Lymphocytes 0
[2024-01-22 07:28] LABS: Anisocytosis Slight; Eosinophils % (manual) 1 (0-7); Lymphocytes % (manual) 4 (10.0-50.0); Monocytes % (manual) 3 (0-12)
[2024-01-22 07:29] LABS: Hypochromia Moderate; Platelet Estimate Increased
[2024-01-22] MEDS: VANCOMYCIN 1GM/250ML KIT 250 ML IV SCH (11:38)
[2024-01-22] MEDS: Ensure HIGH Protein Chocolate 8oz Bottle PO SCH (12:46)
[2024-01-22] MEDS ORDERED: ONDANSETRON HCL 4 MG/2 ML VIAL IV PRN (13:00)
--- NOTE | 2024-01-22 16:57 | DVHPNRES ---
Progress Note Date Seen: Jan 22, 2024 Resident Creating Document: JHNikoJANGELICA Alfaro RESIDENT Medical Necessity Reason Pt with a Central, PICC or Fol: No Subjective Review of Systems Patient was seen and examined at bedside. Patient continued to complain about left flank pain, poor appetite, no shortness a breath, chest pain. appears pale, fatigue, general malaise. Fever recorded overnight at 102.7F and in the evening today with Tmax 102.4F We spoke to [facility] which accepted the patient, pending bed availability. WBC came down from 29 to 23, hemoglobin seems stable. Continue broad-spectrum antibiotics. Objective vital signs Vital Sign Date Time Temp Pulse Resp B/P (MAP) Pulse Ox O2 Delivery O2 Flow Rate FiO2 01/22/24 13:00 97.9 106 12 115/64 (81) 97 97.9 01/22/24 08:05 Room Air* 0 21 Total Intake and Output 01/21/24 01/21/24 01/22/24 15:00 23:00 07:00 Intake Total 50 ml 1050 ml 1104 ml Output Total 900 ml 315 ml Balance 50 ml 150 ml 789 ml medications Current Medications Medications Dose Ordered Sig/Latoya Route Start Time Stop Time Status Last Admin Dose Admin Nitroglycerin 0.4 mg Q5MINP PRN SL 01/16/24 05:15 Morphine Sulfate 2 mg Q30M PRN IV 01/16/24 05:15 Pantoprazole Sodium 40 mg DAILY IV 01/16/24 10:00 01/22/24 10:19 40 MG Vancomycin HCl 0 ml @ 0 mls/hr UD IV 01/16/24 11:00 Ergocalciferol 50,000 unit Q7D PO 01/18/24 09:00 01/18/24 09:12 50,000 UNIT Acetaminophen 650 mg Q6HR PO 01/19/24 12:00 01/22/24 11:34 650 MG Cefepime HCl 50 ml @ 12.5 mls/hr Q8HR IV 01/19/24 22:00 01/22/24 15:00 12.5 MLS/HR Metronidazole 100 ml @ 100 mls/hr Q8HR IV 01/19/24 14:00 01/22/24 13:26 100 MLS/HR Ferrous Sulfate 325 mg DAILY@LUNCH PO 01/20/24 12:00 01/22/24 11:34 325 MG Ibuprofen 400 mg Q6HP PRN PO 01/20/24 18:15 01/21/24 20:40 400 MG Lactated Ringer's 1,000 ml @ 70 mls/hr [id number] IV 01/21/24 12:45 01/21/24 12:56 70 MLS/HR Enteral Nutritional Formula 240 ml BIDWM PO 01/22/24 08:00 01/22/24 12:46 240 ML Enteral Nutritional Formula 240 ml BIDWM PO 01/22/24 18:00 Vancomycin HCl 250 ml @ 250 mls/hr Q12H IV 01/22/24 12:00 01/22/24 11:38 250 MLS/HR Enteral Nutritional Formula 27.5 gm BIDWM PO 01/22/24 18:00 Ondansetron HCl 4 mg Q6HPRN PRN IV 01/22/24 13:00 Examination Gen - no pallor, no icterus, no cyanosis, no clubbing, no LAD, no edema . Skin - Patients skin is warm and dry. HEENT - normocephalic, atraumatic, dry mucous membranes. Neck - full ROM, no LAD, no JVD Pulmonary - B/L vesicular breath sounds. no crackles , no wheezing, no stridor. cardiovascular - normal S1,S2 heard. no murmurs heard. peripheral pulses normal radial 2+, pedal 2+. capillary refill normal <2 secs. GI - soft abdomen with tenderness to palpation in the left subcostal region in the mid axiallary line.no hepatospleenomegaly. Bowel sounds normoactive Neurological - Patient is A/O X 3 . Bilateral upper extremity strength 5/5, bilateral lower extremity strength 5/5, no facial droop, normal speech, no tremor, no sensory deficiets. Ulcer # 1X1 cm ulcer in the left upper forearm with undermined edges. # 1X1 cm ulcer in the left upper groin with undermined edges and oozing white yellowish fluid and smaller ulcer seen adjacent to it # 1 X 1 cm ulcer above the left lateral malleolus - no Osler nodes, no Janeway lesions, no splinter hemorrhages in the nails seen. laboratory and microbiology Laboratory Tests 01/22/24 05:43 01/21/24 05:16 Test 01/21/24 05:16 Range/Units Serum Glucose 89 74-106 mg/dL Microbiology Date/Time Source Procedure Growth Status 01/19/24 10:50 Blood Blood Culture - Preliminary NO GROWTH AFTER 72 HOURS OF INCUBATION. Resulted 01/17/24 11:14 Groin Gram Stain - Final Complete 01/17/24 11:14 Wound Culture - Final Enterococcus faecalis Complete 01/16/24 18:25 Voided Urine Urine Culture - Final Complete Problem List/Assessment/Plan Problem List/Assessment/Plan # Sepsis likely due to ?Bacteremia # Bacteremia likely from ?insect bite ?wounds # ?splenic abcess - wound culture pending - blood culture after 24 hrs shows no growth - urine culture preliminary shows no growth - CT abdomen pelvis with and without contrast mildly hypodense collection seen along the lateral margin of the spleen measuring 1.9 cm in diameter, scalloping along the lateral margins of the spleen, wedge-shaped defect in the upper spleen - Patient is on IV fluids LR @ 70ml/hr - IV Vancomycin + zosyn - doxycycline 100mg bid po, stopped on 01/18/24 - on fluconazole 400mg IV daily - ID consulted with Dr Martinez - Recommend biopsy of skin lesions, - after biopsy, consider initiating steroid therapy for suspected pyoderma gangrenosum. # Ulcerative colitis Flare up with ?pyoderma gangrenosum - Elevated ESR and CRP - DUSTIN panel negative - ANCA panel pending - liver panel shows elevated alkaline phosphatase # ? splenic abscess # ? splenic laceration # ? subscapular hematoma -CT abdomen pelvis with and without contrast mildly hypodense collection seen along the lateral margin of the spleen measuring 1.9 cm in diameter, scalloping along the lateral margins of the spleen, wedge-shaped defect in the upper spleen - Further investigation with CT guided aspiration may be performed - MRI abdomen with contrast # Microcytic hypochromic anemia # Iron deficiency ? Thalassemia ? Anemia of chronic disease - Patient given 2 units of PRBC in the ER - Marked microcytosis and hypochromia seen - Peripheral blood smear pending 01/18 - ID consulted with Dr. Martinez, recommended - continuing on IV antibiotics - Recommend biopsy of skin lesions, - after biopsy, consider initiating steroid therapy for suspected pyoderma gangrenosum. - MR abdomen with contrast showed shows Complex fluid collection along the superior and lateral aspects of the spleen, appears to be mostly subcapsular measuring up to 8.0 cm in AP dimension, 2.6 cm in transverse dimension, and 8.6 cm in craniocaudal dimension. Additional smaller fluid collections are seen in the spleen, measuring up to 1.6 cm, 1.5 cm, and 1.0 cm, respectively. - WBC went up. - Patient had fevers upto 102F, put on scheduled acetaminophen q6hrs and cooling measures - Surgery consulted with , skin biopsy and splenectomy deferred as patient will be transferred to higher level of care Patient was accepted at [facility] see below transfer for possible splenectomy or drainage of splenic abscess Goals of care discussed with the patient for over 33 minutes. Full code Plan discussed with Dr. Toledo Plan discussed with: Patient My Orders My Orders Orders - ANGELICA CARO RESIDENT Procedure Category Date Status Time Nutritional PHA 01/22/24 In Process Supplements (Ensure 08:00 Nutritional PHA 01/22/24 In Process Supplements (Ensure 18:00 Ondansetron Hcl PHA 01/22/24 In Process (Zofran) 13:00 Ct Ab Pel With Iv Con CT 01/22/24 Logged Only 16:54 Lactated Ringers Lr PHA 01/22/24 Transmitted 17:00 Dietary Evaluation Review Recommendations by RD: Decrease Calorie Intake Comments: 1) Consider HAROON 1 pkt BID for wounds 2) Continue current plan of care Expected Outcomes/Goals: F/U in 3-5 days CC Plasma Assessment Blood Product Administration S: 1540 Date of Service: Jan 22, 2024 Billing Provider: NATAN TOLEDO MD Common Visit Codes: 25868-[id number] INP/OBS CARE(HIGH) ANGELICA CARO RESIDENT Jan 22, 2024 16:57 NATAN TOLEDO MD Jan 22, 2024 23:56
[2024-01-22] MEDS: LACTATED RINGER'S 1,000 ML IV SCH (17:11)
[2024-01-22] MEDS: ENSURE CLEAR Mixed Berry 8oz Carton PO SCH (18:00)
[2024-01-22] MEDS: Juven Orange Powder PACKET 27.5gm PO SCH (18:00)
--- NOTE | 2024-01-22 20:24 | DVHPN2 ---
Consult Progress Note Date Seen: Jan 22, 2024 Subjective Patient reports: Other (had a fever of 102.7 overnight , continues to have chills pale face and lesions are still the same size ) Objective vital signs Vital Sign Date Time Temp Pulse Resp B/P (MAP) Pulse Ox O2 Delivery O2 Flow Rate FiO2 01/22/24 18:48 102.4 01/22/24 17:22 98 17 116/72 (87) 99 01/22/24 08:05 Room Air* 0 21 Total Intake and Output 01/21/24 01/21/24 01/22/24 15:00 23:00 07:00 Intake Total 50 ml 1050 ml 1104 ml Output Total 900 ml 315 ml Balance 50 ml 150 ml 789 ml medications Current Medications Medications Dose Ordered Sig/Latoya Route Start Time Stop Time Status Last Admin Dose Admin Nitroglycerin 0.4 mg Q5MINP PRN SL 01/16/24 05:15 Morphine Sulfate 2 mg Q30M PRN IV 01/16/24 05:15 Pantoprazole Sodium 40 mg DAILY IV 01/16/24 10:00 01/22/24 10:19 40 MG Vancomycin HCl 0 ml @ 0 mls/hr UD IV 01/16/24 11:00 Ergocalciferol 50,000 unit Q7D PO 01/18/24 09:00 01/18/24 09:12 50,000 UNIT Acetaminophen 650 mg Q6HR PO 01/19/24 12:00 01/22/24 17:48 650 MG Cefepime HCl 50 ml @ 12.5 mls/hr Q8HR IV 01/19/24 22:00 01/22/24 15:00 12.5 MLS/HR Metronidazole 100 ml @ 100 mls/hr Q8HR IV 01/19/24 14:00 01/22/24 13:26 100 MLS/HR Ferrous Sulfate 325 mg DAILY@LUNCH PO 01/20/24 12:00 01/22/24 11:34 325 MG Ibuprofen 400 mg Q6HP PRN PO 01/20/24 18:15 01/22/24 18:25 400 MG Enteral Nutritional Formula 240 ml BIDWM PO 01/22/24 08:00 01/22/24 12:46 240 ML Enteral Nutritional Formula 240 ml BIDWM PO 01/22/24 18:00 Vancomycin HCl 250 ml @ 250 mls/hr Q12H IV 01/22/24 12:00 01/22/24 11:38 250 MLS/HR Enteral Nutritional Formula 27.5 gm BIDWM PO 01/22/24 18:00 Ondansetron HCl 4 mg Q6HPRN PRN IV 01/22/24 13:00 Lactated Ringer's 1,000 ml @ 100 mls/hr Q10H IV 01/22/24 17:00 01/22/24 17:11 100 MLS/HR Betamethasone Dipropion Augmented 1 applic BID TOP 01/22/24 22:00 Minocycline HCl 100 mg Q12HR PO 01/22/24 22:00 Physical Exam: - General: Pale, appears malnourished. - Neck: Supple. No masses. - HEENT: PERRL. Normal lids and conjunctiva. Moist mucous membranes. Oropharynx without lesions, exudates, or excessive erythema. Normal appearance of the external aspects of the nose and ears. - Heart: Regular rhythm, normal rate. No murmur. No lower extremity edema. - Lungs: Normal respiratory effort. Clear to auscultation bilaterally. No wheezes. No crackles. - Abdomen: Soft. Non-tender. Non-distended. No masses or abdominal hernia. - Msk: No digital cyanosis. Normal strength and tone in all four limbs. - Skin: Warm and dry. Wounds on the left forearm and groin with clear boundaries, violaceous borders, tender, draining exudate at the center. - Neuro: Alert. No facial droop or slurred speech. Extraocular movements intact. Sensation intact to soft touch in all four limbs. - Psych: Appropriate mood. Full affect. Oriented to person, place, time, and situation. laboratory and microbiology Laboratory Tests 01/22/24 05:43 01/21/24 05:16 Test 01/21/24 05:16 Range/Units Serum Glucose 89 74-106 mg/dL Problem List/Assessment/Plan Problems(with codes): (1) Sepsis (2) Symptomatic anemia (3) Wounds, multiple open, arm (4) Cellulitis (5) Ulcerative colitis Problem List/Assessment/Plan (1) Sepsis (2) Ulcerative colitis (3) Cellulitis (4) Wounds, multiple open, arm (5) Symptomatic anemia Plan/Recommendation ASSESSMENT AND PLAN: ID Problem List: - Pyoderma gangrenosum - Suspected splenic abscess vs. hematoma - Inflammatory bowel disease (ulcerative colitis) - Leukocytosis - Sepsis Assessment: This is a 28 y.o. male with a past medical history of osteoporosis and inflammatory bowel disease (ulcerative colitis), who presents with painful ulcers on his left forearm and groin area. The patient reports that these wounds developed ulcers, which ruptured and are painful. He has been feeling unwell for the last three days prior to admission. He is originally from [place] and recently traveled to [facility] to visit family. He endorses being bitten by bugs during his travel but is unsure of the type of insects. On examination, the patient appears pale and malnourished with a low BMI of 19.9. Vital signs are notable for fever (Tmax 101.5F) and tachycardia (HR 125 bpm). Physical exam reveals wounds on the left forearm and groin with clear boundaries, violaceous borders, tender, draining exudate at the center. Imaging studies include: - CT abdomen and pelvis showing a mildly hyperdense collection on the lateral margin of the spleen measuring 1.9 cm in diameter with scalloping along the lateral margins and a wedge defect in the upper spleen. Findings may represent splenic laceration or subcapsular hematoma; splenic abscess is not entirely excluded. Several nonspecific hypodensities within the spleen measuring 1.1 cm may represent simple cysts. MRI of the abdomen is recommended. - Ultrasound of the left forearm revealing a 0.6 x 0.5 x 0.6 cm cystic mass-like structure, which could represent a sebaceous cyst. - Chest X-ray showing no acute disease. - Blood cultures are no growth to date. Laboratory studies reveal leukocytosis. MRI abd w/. 1.9 cm hematoma of spleen - suspect pyodermic involvement of viscera likely aseptic but cannot rule out infection 01/18: wound culture is growing possible enterococcus 01/19: white count is 30.4 , Dr israel evluated patient and wants to hold off on biopsy in the setting of fevers and sepsis and recommends higher level of care . GI recommends avoiding steroids at this time for possible spleenic abscess 01/20: whitecount remains elevated at 29 01/21: repeat Ct which showed 2 cm hypodense collection on the lateral marginal spleen suggest of a subcapsular hematoma , consistant with spleenic glyceration . patients white count improving to 22.1 Plan: - recommend beta metazone topic cream for lesions -watch patient closely , if fever worsens or lesions get larger immediately stop therapy - Continue Cefepime and flagyl - start menacycline - Continue vancomycin for broad-spectrum coverage. - Recommend biopsy of skin lesions, suspect splenic abscess is visceral manifestation of pyoderma gangrenosum. however since GI and general surgery are avoiding skin biopsy and treatment with steroids recommend higher level of care where patient can be monitored more closely - Follow up on wound cultures and adjust antibiotics as necessary. - Monitor vital signs and laboratory studies for any changes. Isolation Precautions: Standard Assessment and plan were discussed with the patient as written above. Plan is subject to change pending incorporation of new incoming information/diagnostics. Updates may be added as addendum at the bottom (OR TOP) of this note. Thank you for the interesting consult. ID will continue to follow. Please contact Infectious Disease for any questions or concerns. Ana Martinez M.D. Plan discussed with: Other Dietary Evaluation Review Recommendations by RD: Decrease Calorie Intake Comments: 1) Consider HAROON 1 pkt BID for wounds 2) Continue current plan of care Expected Outcomes/Goals: F/U in 3-5 days CC Plasma Assessment Blood Product Administration S: 1540 ANA MARTINEZ MD Jan 22, 2024 20:24
[2024-01-22] MEDS: MINOCYCLINE HCL 100 MG CAP PO SCH (21:13)
[2024-01-22] MEDS: BETAMETHASONE DIPROP0.05% TOPICAL CREAM 15GM TOP SCH (21:14)
[2024-01-23] VITALS (8 sets, daily range): BP systolic 105–124; BP diastolic 63–78; PULSE 79–120; RESP 18–20; TEMP 97.9–100.3; O2SAT 96–99
[2024-01-23 07:44] LABS: Hemoglobin 7.8 g/dL (13.5-17.5); White Blood Cell 27.1 10^3/uL (4.4-10.8)
[2024-01-23 07:47] LABS: Hematocrit 25.9 % (41.0-53.0); Mean Corpuscular Hemoglobin 19.4 pg (28.0-32.0); Mean Corpuscular Hgb Conc. 30.3 g/dL (32.0-36.0); Mean Corpuscular Volume 64.1 fL (80.0-100.0); Platelet Count (auto) 536 10^3/uL (140-450); Red Blood Cells 4.04 10^6/uL (4.5-5.90)
[2024-01-23 07:48] LABS: Red Cell Distribution Width 28.7 % (11.8-14.3)
[2024-01-23 07:49] LABS: Basophils % (manual) 0 (0.0-2.0); Blast Cells 0; Metamyelocytes % 0; Myelocytes % 0; Promyelocytes % 0; Reactive Lymphocytes 0
[2024-01-23 07:58] LABS: Alanine Aminotransferase 20 U/L (7-40); Anion Gap 8 (5-15); Aspartate Aminotransferase 34 U/L (13-40); BUN/Creatinine Ratio 6.5 (10.0-20.0); Carbon Dioxide 21 mmol/L (20-31); Glucose 97 mg/dL (74-106)
[2024-01-23 07:59] LABS: Bilirubin, Total 0.5 mg/dL (0.2-1.0); Total Protein 6.2 g/dL (5.7-8.2)
[2024-01-23 08:14] LABS: Albumin 2.4 g/dL (3.2-4.8); Alkaline Phosphatase 286 U/L (46-116); Blood Urea Nitrogen 6 mg/dL (9-23); Calcium 8.4 mg/dL (8.7-10.4); Chloride 103 mmol/L (98-107); Sodium 132 mmol/L (136-145)
[2024-01-23 08:20] LABS: Band Neutrophils % (manual) 1; Eosinophils % (manual) 1 (0-7); Lymphocytes % (manual) 2 (10.0-50.0); Monocytes % (manual) 4 (0-12)
[2024-01-23 08:21] LABS: Anisocytosis Slight; Hypochromia Moderate
[2024-01-23 08:22] LABS: Platelet Estimate Increased
--- NOTE | 2024-01-23 10:26 | DVH ---
Exam: CT CT AB PEL WITH IV CON ONLY History: progression of splenic absecess TECHNIQUE: A digital shuttle veneering supervisor image was obtained. During the uneventful, intravenous administration of c ontrast material, multislice data acquisition was obtained through the abdomen and pelvis. The data s et was subsequently reconstructed into axial images. Images were reviewed on a work station using a c ombination of axial and multiplanar using a variety of window levels and settings. 100 cc of Omnipaqu e 300 contrast was injected intravenously. All CT scans at this medical facility are performed using dose modulation techniques as appropriate t o a performed exam including the following:Automated exposure control was utilized; adjustment of the MA and/or KV according to patient size; and use of iterative reconstruction technique. Radiation Dose Information: CT Dose: CTDI volume is 5.11 mGy. Dose-length product is 282.17 mGy*cm Comparison: CT CT CHEST/AB/PL W CON- IV ONLY on DOS: 01/20/24, CT CT AB PELVIS W WO CON-IV ONLY on DO S: 01/16/24 FINDINGS: There has been interval increase in size of hypodense collection along the lateral margins of the spl een now measuring 3.6 cm in maximum diameter. There is greater scalloping of the lateral margins of t he spleen. There is again a wedge defect in the upper spleen. Previously seen hypodense collections i n the spleen also appear larger in size. There are additional small hypodense foci in the spleen whic h were not previously seen. Theliver, gallbladder, pancreas, kidneys, adrenal glands, and spleen appear within normal limits. There are scattered pockets of ascites seen within the abdomen. There is free fluid in the pelvis whi ch is increased from the prior study. There is no free intraperitoneal air. There is no gross evidenc e of abdominal lymphadenopathy. The small and large bowel loops demonstrate normal caliber. The abdominal aorta and IVC appear within normal limits. The bladder appears within normal limits the degree of distention. There is a stable nonspecific 1. 7 cm cystic structure along the right external iliac vessels. There is left-sided pleural effusion which is mildly increased from the prior studies. The visualized right lung base is clear. There is no acute osseous abnormality. IMPRESSION: 1. Interval increase in size of hypodense collection along the lateral margins of the spleen now bianca uring 3.6 cm in maximum diameter. There is greater scalloping of the lateral margin of the spleen. Th ere is again a wedge defect in the upper spleen. 2. Previously seen hypodense collections in the spleen also appear larger in size. There are addition al small hypodense foci in the spleen which were not previously seen. 3. Interval increase in ascites, particularly in the pelvis. 4. Mild interval increase in left-sided pleural effusion. 5. The results were discussed with nurse Huntre by Dr. Adria Buckley on 01/23/2024 at 10:24 a.m.. HS:Y
[2024-01-23] MEDS: PIPERACILLIN-TAZOB 3.375GM 100 ML IV SCH (12:00)
[2024-01-23] MEDS: MESALAMINE 400mg Delayed Release Cap PO ONE (12:25)
[2024-01-23] MEDS: IRON SUCROSE COMPLEX 110 ML IV SCH (14:30)
--- NOTE | 2024-01-23 15:51 | DVHPNRES ---
Progress Note Date Seen: Jan 23, 2024 Resident Creating Document: MOISE GARCIA RESDIENT Medical Necessity Reason Pt with a Central, PICC or Fol: No Subjective Review of Systems Patient is a 28-year-old male with a past medical history of ulcerative colitis and chronic anemia came to the ED with a chief complaint of multiple tender Swellings. The patient was originally from [place] and is visiting his sister who lives in [place]. He reports that he along with the parents came to [place] on a car, started on when he noticed a swelling developing above the left lateral malleolus, noticed to be gradually enlarging, tender and erythematous with a central developing pus point , it is about 2x2 cm in size. Patient had 3 other small swellings, 2 in the groin and 1 in the left arm on the ventral aspect near the elbow. Patient reports feeling feverish since the time he has had these swellings develop. Reports passing 1-2 watery loose stools since the past one week, brownish in color without any apparent blood. Patient reports that on the way from [place] to [place] this stopped at a motel 1st day overnight stopped out multiple cyst points but is not shows if he was bitten by any insects. Patient denied dizziness, nausea, vomiting, headache. Patient also reports cough since the last 1 week with the associated left sided chest pain which he attributes to sleeping in a wrong way. Past medical history: Chronic anemia, ulcerative colitis Past surgical history: None reported Social history: Lives with parents and denies smoking, alcohol, drug use Family history: Denies history of inflammatory bowel disease in family Home medications: None Today, 01/22, the patient seen and examined at the bedside. Patient is here complaining of abdominal pain Patient reports: No new complaints Changes from previous H/P or p: No Changes Objective vital signs Vital Sign Date Time Temp Pulse Resp B/P (MAP) Pulse Ox O2 Delivery O2 Flow Rate FiO2 01/23/24 15:43 101.7 01/23/24 13:00 120 20 124/75 (91) 98 01/23/24 08:00 Room Air* 0 21 Total Intake and Output 01/22/24 01/22/24 01/23/24 15:00 23:00 07:00 Intake Total 400 ml 1570 ml 925 ml Output Total 900 ml 480 ml Balance 400 ml 670 ml 445 ml medications Current Medications Medications Dose Ordered Sig/Latoya Route Start Time Stop Time Status Last Admin Dose Admin Nitroglycerin 0.4 mg Q5MINP PRN SL 01/16/24 05:15 Morphine Sulfate 2 mg Q30M PRN IV 01/16/24 05:15 Pantoprazole Sodium 40 mg DAILY IV 01/16/24 10:00 01/23/24 10:06 40 MG Vancomycin HCl 0 ml @ 0 mls/hr UD IV 01/16/24 11:00 Ergocalciferol 50,000 unit Q7D PO 01/18/24 09:00 01/18/24 09:12 50,000 UNIT Acetaminophen 650 mg Q6HR PO 01/19/24 12:00 01/23/24 12:35 650 MG Ibuprofen 400 mg Q6HP PRN PO 01/20/24 18:15 01/23/24 15:43 400 MG Enteral Nutritional Formula 240 ml BIDWM PO 01/22/24 08:00 01/23/24 08:18 240 ML Enteral Nutritional Formula 240 ml BIDWM PO 01/22/24 18:00 Vancomycin HCl 250 ml @ 250 mls/hr Q12H IV 01/22/24 12:00 01/23/24 12:27 250 MLS/HR Enteral Nutritional Formula 27.5 gm BIDWM PO 01/22/24 18:00 Ondansetron HCl 4 mg Q6HPRN PRN IV 01/22/24 13:00 Lactated Ringer's 1,000 ml @ 100 mls/hr Q10H IV 01/22/24 17:00 01/23/24 12:36 100 MLS/HR Betamethasone Dipropion Augmented 1 applic BID TOP 01/22/24 22:00 Minocycline HCl 100 mg Q12HR PO 01/22/24 22:00 01/23/24 10:09 100 MG Iron Sucrose 110 ml @ 110 mls/hr DAILY@1200 IV 01/23/24 12:00 01/27/24 12:59 01/23/24 14:30 110 MLS/HR Piperacillin Sod/ Tazobactam Sod 100 ml @ 25 mls/hr Q6HR IV 01/23/24 12:00 Mesalamine 800 mg BID PO 01/23/24 22:00 Examination General Appearance: Alert, Oriented X3, Cooperative, No acute distress HEENT: Atraumatic, PERRLA, EOMI, Mucous membrane moist/pink Respiratory: Clear to auscultation, Normal air movement Cardiovascular: Regular rate, Normal S1, Normal S2, No murmurs, no chest wall tenderness Abdominal: Mild abdominal tenderness Extremities: No clubbing, No cyanosis, No edema, Normal pulses, No tenderness/swelling Skin: Multiple new onset skin lesions Neuro: Normal gait, Normal speech, Strength at 5/5 X4 ext, Normal tone, Sensation intact, Cranial nerves 3-12 NL, Reflexes 2+ Psych/Mental Status: Mental status NL, Mood NL laboratory and microbiology Laboratory Tests 01/23/24 06:21 Test 01/23/24 06:21 Range/Units Serum Glucose 97 74-106 mg/dL Microbiology Date/Time Source Procedure Growth Status 01/22/24 05:04 Arm Gram Stain Pending Resulted 01/22/24 05:04 Arm Wound Culture - Preliminary Resulted 01/19/24 10:50 Blood Blood Culture - Preliminary NO GROWTH AFTER 72 HOURS OF INCUBATION. Resulted 01/16/24 18:25 Voided Urine Urine Culture - Final Complete Labs and/or images reviewed: Labs reviewed by me, Image(s) reviewed by me Problem List/Assessment/Plan Problem List/Assessment/Plan This is a 28-year-old male with past medical history of ulcerative colitis (stopped taking medicines many years back by himself), chronic anemia came to the hospital with abdominal pain, multiple enlarging tender lesions and watery diarrhea. Admitted on 01/15. Sepsis likely due to Bacteremia/ulcerative colitis flare-up Bacteremia likely from insect bite/wounds infection Possible splenic laceration/rupture with splenic subcapsular hematoma/ splenic abcess Surgery is on the board, recommended for urgent transfer to higher level of care MR abdomen with contrast showed shows Complex fluid collection along the superior and lateral aspects of the spleen, appears to be mostly subcapsular measuring up to 8.0 cm in AP dimension, 2.6 cm in transverse dimension, and 8.6 cm in craniocaudal dimension. Additional smaller fluid collections are seen in the spleen, measuring up to 1.6 cm, 1.5 cm, and 1.0 cm, respectively. ID is on the board, recommended vancomycin and Zosyn Urine culture, blood culture, from are negative, repeat blood culture from 01/[address] abdomen pelvis of 01/15 with and witout contrast mildly hypodense collection seen along the lateral margin of the spleen measuring 1.9 cm in diameter, scalloping along the lateral margins of the spleen, wedge-shaped defect in the upper spleen CT scan of 01/22, shows enlargement of subcapsular hypodensity Continue IV fluids LR @ 70ml/hr Continue IV Vancomycin + zosyn Ulcerative colitis Flare up with possible pyoderma gangrenosum GI is on the board, recommended mesalamine, and recommended that the patient is not a good candidate for IV steroids Mesalamine 800 mg b.i.d. Elevated ESR and CRP DUSTIN panel negative ANCA positive liver panel shows elevated alkaline phosphatase Severe anemia, microcytic hypochromic Iron panel shows, iron-deficiency anemia Possible thalassemia/anemia of chronic disease IV iron, 1 back given Two pints of PRBC has been transfused Multiple skin lesion, possible pyoderma gangrenosum due to UC flare up Mesalamine 800 mg b.i.d. Betamethasone topical b.i.d. Wound culture shows Enterococcus faecalis, sensitive to vancomycin ID on the board, recommended minocycline 100 mg b.i.d. and skin biopsy Mild hyponatremia , improving Monitoring Mild to moderate Malnutrition Serum albumin is 2.3 Joven orange border packet, b.i.d. DIET: Clear liquid diet DVT prophylax: Due to possible splenic hematoma, anticoagulant not indicated at the moment, SCD GI prophylaxis: Protonix Bowel regimen: Due to current diarrhea, no laxative is indicated Code status: Code status discussed for more than 28 minutes, full code DISPOSITION: Telemetry Due to patient's critical status which requires possible surgical intervention, the patient needs to be transferred to the higher level of care. The patient's has been accepted at [facility], but due to unavailability of bed, the patient has not been transfered. [facility] has been also contacted, but refused the patient. [facility], for transfer to the in system hospital transferring, may be transfer patient to the [facility]. Patient's status discussed with the patient and father via phone, updated the patient's critical status and answered the father's questions. Case discussed with Dr. Eduardo Plan discussed with: Patient, Other (Father, RN) My Orders My Orders Orders - MOISE GARCIA RESDIENT Procedure Category Date Status Time Comprehensive LAB 01/24/24 Verified Metabolic Panel 04:00 Dietary Evaluation Review Recommendations by RD: Decrease Calorie Intake Comments: 1) Consider HAROON 1 pkt BID for wounds 2) Continue current plan of care Expected Outcomes/Goals: F/U in 3-5 days CC Plasma Assessment Blood Product Administration S: 1540 Date of Service: Jan 23, 2024 Billing Provider: RICHIE MILLER MD Common Visit Codes: [id number] INP/OBS CARE(HIGH) MOISE GARCIA Jan 23, 2024 15:51 RICHIE MILLER MD Jan 25, 2024 09:22
[2024-01-23] MEDS: MESALAMINE 400mg Delayed Release Cap PO SCH (21:19)
[2024-01-24] VITALS (8 sets, daily range): BP systolic 112–119; BP diastolic 59–78; PULSE 90–130; RESP 17–20; TEMP 97.1–99.6; O2SAT 92–97
--- NOTE | 2024-01-24 00:04 | DVHPN2 ---
Consult Progress Note Date Seen: Jan 23, 2024 Subjective Patient reports: Feels better (ongoing fevers and leukocytosis) Objective vital signs Vital Sign Date Time Temp Pulse Resp B/P (MAP) Pulse Ox O2 Delivery O2 Flow Rate FiO2 01/23/24 22:00 98.6 105 18 113/69 (84) 97 98.6 01/23/24 20:00 Room Air* 0 21 Total Intake and Output 01/23/24 01/23/24 01/24/24 15:00 23:00 07:00 Intake Total 250 ml 1260 ml Output Total 602 ml Balance 250 ml 658 ml medications Current Medications Medications Dose Ordered Sig/Latoya Route Start Time Stop Time Status Last Admin Dose Admin Nitroglycerin 0.4 mg Q5MINP PRN SL 01/16/24 05:15 Morphine Sulfate 2 mg Q30M PRN IV 01/16/24 05:15 Pantoprazole Sodium 40 mg DAILY IV 01/16/24 10:00 01/23/24 10:06 40 MG Vancomycin HCl 0 ml @ 0 mls/hr UD IV 01/16/24 11:00 Ergocalciferol 50,000 unit Q7D PO 01/18/24 09:00 01/18/24 09:12 50,000 UNIT Acetaminophen 650 mg Q6HR PO 01/19/24 12:00 01/23/24 18:02 650 MG Ibuprofen 400 mg Q6HP PRN PO 01/20/24 18:15 01/23/24 15:43 400 MG Enteral Nutritional Formula 240 ml BIDWM PO 01/22/24 08:00 01/23/24 17:50 240 ML Enteral Nutritional Formula 240 ml BIDWM PO 01/22/24 18:00 Vancomycin HCl 250 ml @ 250 mls/hr Q12H IV 01/22/24 12:00 01/23/24 23:35 250 MLS/HR Enteral Nutritional Formula 27.5 gm BIDWM PO 01/22/24 18:00 Ondansetron HCl 4 mg Q6HPRN PRN IV 01/22/24 13:00 Lactated Ringer's 1,000 ml @ 100 mls/hr Q10H IV 01/22/24 17:00 01/23/24 23:22 100 MLS/HR Betamethasone Dipropion Augmented 1 applic BID TOP 01/22/24 22:00 Minocycline HCl 100 mg Q12HR PO 01/22/24 22:00 01/23/24 21:20 100 MG Iron Sucrose 110 ml @ 110 mls/hr DAILY@1200 IV 01/23/24 12:00 01/27/24 12:59 01/23/24 14:30 110 MLS/HR Piperacillin Sod/ Tazobactam Sod 100 ml @ 25 mls/hr Q6HR IV 01/23/24 12:00 01/23/24 17:06 25 MLS/HR Mesalamine 800 mg BID PO 01/23/24 22:00 01/23/24 21:19 800 MG PHYSICAL EXAM: - GENERAL: Alert and oriented x 3. No acute distress. Well-nourished. - EYES: EOMI. Anicteric. - HENT: Moist mucous membranes. No scleral icterus. No cervical lymphadenopathy. - LUNGS: Clear to auscultation bilaterally. No accessory muscle use. - CARDIOVASCULAR: Regular rate and rhythm. No murmur. No JVD. - ABDOMEN: Soft, non-tender and non-distended. No palpable masses. - EXTREMITIES: No edema. Non-tender.?SKIN: No rashes or lesions. Warm. - NEUROLOGIC: No focal neurological deficits. CN II-XII grossly intact, but not individually tested - PSYCHIATRIC: Cooperative. Appropriate mood and affect. laboratory and microbiology Laboratory Tests 01/23/24 06:21 Test 01/23/24 06:21 Range/Units Serum Glucose 97 74-106 mg/dL Problem List/Assessment/Plan Problem List/Assessment/Plan (1) Sepsis (2) Ulcerative colitis (3) Cellulitis (4) Wounds, multiple open, arm (5) Symptomatic anemia Plan/Recommendation ASSESSMENT AND PLAN: ID Problem List: - Pyoderma gangrenosum - Suspected splenic abscess vs. hematoma - Inflammatory bowel disease (ulcerative colitis) - Leukocytosis - Sepsis Assessment: This is a 28 y.o. male with a past medical history of osteoporosis and inflammatory bowel disease (ulcerative colitis), who presents with painful ulcers on his left forearm and groin area. The patient reports that these wounds developed ulcers, which ruptured and are painful. He has been feeling unwell for the last three days prior to admission. He is originally from [place] and recently traveled to [facility] to visit family. He endorses being bitten by bugs during his travel but is unsure of the type of insects. On examination, the patient appears pale and malnourished with a low BMI of 19.9. Vital signs are notable for fever (Tmax 101.5F) and tachycardia (HR 125 bpm). Physical exam reveals wounds on the left forearm and groin with clear boundaries, violaceous borders, tender, draining exudate at the center. Imaging studies include: - CT abdomen and pelvis showing a mildly hyperdense collection on the lateral margin of the spleen measuring 1.9 cm in diameter with scalloping along the lateral margins and a wedge defect in the upper spleen. Findings may represent splenic laceration or subcapsular hematoma; splenic abscess is not entirely excluded. Several nonspecific hypodensities within the spleen measuring 1.1 cm may represent simple cysts. MRI of the abdomen is recommended. - Ultrasound of the left forearm revealing a 0.6 x 0.5 x 0.6 cm cystic mass-like structure, which could represent a sebaceous cyst. - Chest X-ray showing no acute disease. - Blood cultures are no growth to date. Laboratory studies reveal leukocytosis. MRI abd w/. 1.9 cm hematoma of spleen - suspect pyodermic involvement of viscera likely aseptic but cannot rule out infection 01/18: wound culture is growing possible enterococcus 01/19: white count is 30.4 , Dr israel evluated patient and wants to hold off on biopsy in the setting of fevers and sepsis and recommends higher level of care . GI recommends avoiding steroids at this time for possible spleenic abscess 01/20: whitecount remains elevated at 29 12: repeat Ct which showed 2 cm hypodense collection on the lateral marginal spleen suggest of a subcapsular hematoma , consistant with spleenic glyceration . patients white count improving to 22.1 Plan: - recommend beta metazone topic cream for lesions -watch patient closely , if fever worsens or lesions get larger immediately stop therapy - Continue Cefepime and flagyl - start menacycline - Continue vancomycin for broad-spectrum coverage. - Recommend biopsy of skin lesions, suspect splenic abscess is visceral manifestation of pyoderma gangrenosum. however since GI and general surgery are avoiding skin biopsy and treatment with steroids recommend higher level of care where patient can be monitored more closely - Follow up on wound cultures and adjust antibiotics as necessary. - Monitor vital signs and laboratory studies for any changes. Isolation Precautions: Standard Assessment and plan were discussed with the patient as written above. Plan is subject to change pending incorporation of new incoming information/diagnostics. Updates may be added as addendum at the bottom (OR TOP) of this note. Thank you for the interesting consult. ID will continue to follow. Please contact Infectious Disease for any questions or concerns. Ana Martinez M.D. Plan discussed with: Patient Dietary Evaluation Review Recommendations by RD: Decrease Calorie Intake Comments: 1) Consider HAROON 1 pkt BID for wounds 2) Continue current plan of care Expected Outcomes/Goals: F/U in 3-5 days CC Plasma Assessment Blood Product Administration S: 1540 ANA MARTINEZ MD Jan 24, 2024 00:04
[2024-01-24 06:34] LABS: Alanine Aminotransferase 21 U/L (7-40); Anion Gap 7 (5-15); Aspartate Aminotransferase 23 U/L (13-40); BUN/Creatinine Ratio 6.2 (10.0-20.0); Carbon Dioxide 24 mmol/L (20-31); Chloride 101 mmol/L (98-107); Glucose 100 mg/dL (74-106); Potassium 3.7 mmol/L (3.5-5.1)
[2024-01-24 06:35] LABS: Albumin 2.4 g/dL (3.2-4.8); Alkaline Phosphatase 279 U/L (46-116); Bilirubin, Total 0.6 mg/dL (0.2-1.0); Blood Urea Nitrogen 6 mg/dL (9-23); Calcium 8.6 mg/dL (8.7-10.4); Sodium 132 mmol/L (136-145); Total Protein 6.1 g/dL (5.7-8.2)
[2024-01-24 06:37] LABS: Hemoglobin 7.1 g/dL (13.5-17.5)
[2024-01-24 06:39] LABS: Hematocrit 23.5 % (41.0-53.0); Mean Corpuscular Hemoglobin 19.1 pg (28.0-32.0); Mean Corpuscular Hgb Conc. 30.3 g/dL (32.0-36.0); Platelet Count (auto) 559 10^3/uL (140-450); Red Blood Cells 3.73 10^6/uL (4.5-5.90); White Blood Cell 29.5 10^3/uL (4.4-10.8)
[2024-01-24 08:04] LABS: Red Cell Distribution Width 28.1 % (11.8-14.3)
[2024-01-24 08:06] LABS: Band Neutrophils % (manual) 0; Basophils % (manual) 0 (0.0-2.0); Blast Cells 0; Eosinophils % (manual) 0 (0-7); Metamyelocytes % 0; Myelocytes % 0; Promyelocytes % 0; Reactive Lymphocytes 0
[2024-01-24 09:27] LABS: Lymphocytes % (manual) 5 (10.0-50.0); Monocytes % (manual) 6 (0-12)
[2024-01-24 09:28] LABS: Anisocytosis Moderate; Hypochromia Marked; Platelet Estimate Increased
--- NOTE | 2024-01-24 15:31 | DVHPNRES ---
Progress Note Date Seen: Jan 24, 2024 Resident Creating Document: MOISE GARCIA RESDIENT Medical Necessity Reason Pt with a Central, PICC or Fol: No Subjective Review of Systems Patient is a 28-year-old male with a past medical history of ulcerative colitis and chronic anemia came to the ED with a chief complaint of multiple tender Swellings. The patient was originally from [place] and is visiting his sister who lives in [place]. He reports that he along with the parents came to [place] on a car, started on when he noticed a swelling developing above the left lateral malleolus, noticed to be gradually enlarging, tender and erythematous with a central developing pus point , it is about 2x2 cm in size. Patient had 3 other small swellings, 2 in the groin and 1 in the left arm on the ventral aspect near the elbow. Patient reports feeling feverish since the time he has had these swellings develop. Reports passing 1-2 watery loose stools since the past one week, brownish in color without any apparent blood. Patient reports that on the way from [place] to [place] this stopped at a motel 1st day overnight stopped out multiple cyst points but is not shows if he was bitten by any insects. Patient denied dizziness, nausea, vomiting, headache. Patient also reports cough since the last 1 week with the associated left sided chest pain which he attributes to sleeping in a wrong way. Past medical history: Chronic anemia, ulcerative colitis Past surgical history: None reported Social history: Lives with parents and denies smoking, alcohol, drug use Family history: Denies history of inflammatory bowel disease in family Home medications: None Today, 01/23, the patient seen and examined at the bedside. Patient is here complaining of abdominal pain Objective vital signs Vital Sign Date Time Temp Pulse Resp B/P (MAP) Pulse Ox O2 Delivery O2 Flow Rate FiO2 01/24/24 14:06 98.7 01/24/24 12:46 130 19 112/59 (76) 92 01/24/24 08:00 Room Air* 0 21 Total Intake and Output 01/23/24 01/23/24 01/24/24 15:00 23:00 07:00 Intake Total 250 ml 1260 ml 550 ml Output Total 602 ml 300 ml Balance 250 ml 658 ml 250 ml medications Current Medications Medications Dose Ordered Sig/Latoya Route Start Time Stop Time Status Last Admin Dose Admin Nitroglycerin 0.4 mg Q5MINP PRN SL 01/16/24 05:15 Morphine Sulfate 2 mg Q30M PRN IV 01/16/24 05:15 Pantoprazole Sodium 40 mg DAILY IV 01/16/24 10:00 01/24/24 09:17 40 MG Vancomycin HCl 0 ml @ 0 mls/hr UD IV 01/16/24 11:00 Ergocalciferol 50,000 unit Q7D PO 01/18/24 09:00 01/18/24 09:12 50,000 UNIT Acetaminophen 650 mg Q6HR PO 01/19/24 12:00 01/24/24 11:15 650 MG Ibuprofen 400 mg Q6HP PRN PO 01/20/24 18:15 01/24/24 13:06 400 MG Enteral Nutritional Formula 240 ml BIDWM PO 01/22/24 08:00 01/24/24 08:11 240 ML Enteral Nutritional Formula 240 ml BIDWM PO 01/22/24 18:00 Vancomycin HCl 250 ml @ 250 mls/hr Q12H IV 01/22/24 12:00 01/24/24 13:02 250 MLS/HR Enteral Nutritional Formula 27.5 gm BIDWM PO 01/22/24 18:00 Ondansetron HCl 4 mg Q6HPRN PRN IV 01/22/24 13:00 Lactated Ringer's 1,000 ml @ 100 mls/hr Q10H IV 01/22/24 17:00 01/23/24 23:22 100 MLS/HR Betamethasone Dipropion Augmented 1 applic BID TOP 01/22/24 22:00 Minocycline HCl 100 mg Q12HR PO 01/22/24 22:00 01/24/24 09:22 100 MG Iron Sucrose 110 ml @ 110 mls/hr DAILY@1200 IV 01/23/24 12:00 01/27/24 12:59 01/24/24 11:07 110 MLS/HR Piperacillin Sod/ Tazobactam Sod 100 ml @ 25 mls/hr Q6HR IV 01/23/24 12:00 01/24/24 13:48 25 MLS/HR Mesalamine 800 mg BID PO 01/23/24 22:00 01/24/24 09:21 800 MG laboratory and microbiology Laboratory Tests 01/24/24 06:02 Test 01/24/24 06:02 Range/Units Serum Glucose 100 74-106 mg/dL Microbiology Date/Time Source Procedure Growth Status 01/22/24 05:04 Arm Gram Stain - Final Resulted 01/22/24 05:04 Arm Wound Culture - Preliminary Resulted 01/19/24 10:50 Blood Blood Culture - Final NO GROWTH AFTER 5 DAYS OF INCUBATION. Complete 01/16/24 18:25 Voided Urine Urine Culture - Final Complete Labs and/or images reviewed: Labs reviewed by me, Image(s) reviewed by me Problem List/Assessment/Plan Problem List/Assessment/Plan This is a 28-year-old male with past medical history of ulcerative colitis (stopped taking medicines many years back by himself), chronic anemia came to the hospital with abdominal pain, multiple enlarging tender lesions and watery diarrhea. Admitted on 01/15. Sepsis likely due to Bacteremia/ulcerative colitis flare-up Bacteremia likely from insect bite/wounds infection Possible splenic laceration/rupture with splenic subcapsular hematoma/ splenic abcess Surgery is on the board, recommended for urgent transfer to higher level of care MR abdomen with contrast showed shows Complex fluid collection along the superior and lateral aspects of the spleen, appears to be mostly subcapsular measuring up to 8.0 cm in AP dimension, 2.6 cm in transverse dimension, and 8.6 cm in craniocaudal dimension. Additional smaller fluid collections are seen in the spleen, measuring up to 1.6 cm, 1.5 cm, and 1.0 cm, respectively. ID is on the board, recommended vancomycin and Zosyn Urine culture, blood culture, from are negative, repeat blood culture from 01/[address] abdomen pelvis of 01/15 with and witout contrast mildly hypodense collection seen along the lateral margin of the spleen measuring 1.9 cm in diameter, scalloping along the lateral margins of the spleen, wedge-shaped defect in the upper spleen CT scan of 01/22, shows enlargement of subcapsular hypodensity Continue IV fluids LR @ 70ml/hr Continue IV Vancomycin + zosyn Ulcerative colitis Flare up with possible pyoderma gangrenosum GI is on the board, recommended mesalamine, and recommended that the patient is not a good candidate for IV steroids Mesalamine 800 mg b.i.d. Elevated ESR and CRP DUSTIN panel negative ANCA positive liver panel shows elevated alkaline phosphatase Severe anemia, microcytic hypochromic Iron panel shows, iron-deficiency anemia Possible thalassemia/anemia of chronic disease IV iron, 1 back given Two pints of PRBC has been transfused Multiple skin lesion, possible pyoderma gangrenosum due to UC flare up Mesalamine 800 mg b.i.d. Betamethasone topical b.i.d. Wound culture shows Enterococcus faecalis, sensitive to vancomycin ID on the board, recommended minocycline 100 mg b.i.d. and skin biopsy Mild hyponatremia , improving Monitoring Mild to moderate Malnutrition Serum albumin is 2.3 Joven orange border packet, b.i.d. DIET: Clear liquid diet DVT prophylax: Due to possible splenic hematoma, anticoagulant not indicated at the moment, SCD GI prophylaxis: Protonix Bowel regimen: Due to current diarrhea, no laxative is indicated Code status: Code status discussed for more than 28 minutes, full code DISPOSITION: Telemetry Due to patient's critical status which requires possible surgical intervention, the patient needs to be transferred to the higher level of care. The patient's has been accepted at [facility], but due to unavailability of bed, the patient has not been transfered. [facility] has been also contacted, but refused the patient. [facility], for transfer [facility] the [facility], may be transfer patient to the [facility]. [facility] transfer center was contacted by myself, no bed available until 7-10 days. Patient's status discussed with the patient and father at the bedside, updated the patient's critical status and answered the father's questions. Case discussed with Dr. Zimmerman Plan discussed with: Patient, Other (Father and RN) My Orders My Orders Orders - MOISE GARCIA RESDIBISMARK Procedure Category Date Status Time * Manager Paper CONS 01/23/24 Transmitted Consult Dietary Evaluation Review Recommendations by RD: Decrease Calorie Intake Comments: 1) Consider HAROON 1 pkt BID for wounds 2) Continue current plan of care Expected Outcomes/Goals: F/U in 3-5 days CC Plasma Assessment Blood Product Administration S: 1540 Date of Service: Jan 24, 2024 Billing Provider: ALICIA ZIMMERMAN MD Common Visit Codes: [id number] INP/OBS CARE(HIGH) CATHERINE GARCIAWARaúl RESDIENT Jan 24, 2024 15:31 ALICIA ZIMMERMAN MD Jan 24, 2024 18:23
--- NOTE | 2024-01-24 18:18 | DVHPN2 ---
Progress Note - Dictate Date Seen: Jan 24, 2024 Medical Necessity Reason Pt with a Central, PICC or Fol: No Subjective Patient continues to run low-grade fevers He has continued mild abdominal pain There was no diarrhea or bleeding today Patient had self discontinued his medications for colitis vital signs Vital Sign Date Time Temp Pulse Resp B/P (MAP) Pulse Ox O2 Delivery O2 Flow Rate FiO2 01/24/24 17:58 98.2 01/24/24 17:02 113 17 113/78 (90) 97 01/24/24 08:00 Room Air* 0 21 Total Intake and Output 01/23/24 01/23/24 01/24/24 15:00 23:00 07:00 Intake Total 250 ml 1260 ml 550 ml Output Total 602 ml 300 ml Balance 250 ml 658 ml 250 ml medications Current Medications Medications Dose Ordered Sig/Latoya Route Start Time Stop Time Status Last Admin Dose Admin Nitroglycerin 0.4 mg Q5MINP PRN SL 01/16/24 05:15 Morphine Sulfate 2 mg Q30M PRN IV 01/16/24 05:15 Pantoprazole Sodium 40 mg DAILY IV 01/16/24 10:00 01/24/24 09:17 40 MG Vancomycin HCl 0 ml @ 0 mls/hr UD IV 01/16/24 11:00 Ergocalciferol 50,000 unit Q7D PO 01/18/24 09:00 01/18/24 09:12 50,000 UNIT Acetaminophen 650 mg Q6HR PO 01/19/24 12:00 01/24/24 17:58 650 MG Ibuprofen 400 mg Q6HP PRN PO 01/20/24 18:15 01/24/24 13:06 400 MG Enteral Nutritional Formula 240 ml BIDWM PO 01/22/24 08:00 01/24/24 17:51 240 ML Enteral Nutritional Formula 240 ml BIDWM PO 01/22/24 18:00 Vancomycin HCl 250 ml @ 250 mls/hr Q12H IV 01/22/24 12:00 01/24/24 13:02 250 MLS/HR Enteral Nutritional Formula 27.5 gm BIDWM PO 01/22/24 18:00 Ondansetron HCl 4 mg Q6HPRN PRN IV 01/22/24 13:00 Lactated Ringer's 1,000 ml @ 100 mls/hr Q10H IV 01/22/24 17:00 01/24/24 17:51 100 MLS/HR Betamethasone Dipropion Augmented 1 applic BID TOP 01/22/24 22:00 Minocycline HCl 100 mg Q12HR PO 01/22/24 22:00 01/24/24 09:22 100 MG Iron Sucrose 110 ml @ 110 mls/hr DAILY@1200 IV 01/23/24 12:00 01/27/24 12:59 01/24/24 11:07 110 MLS/HR Piperacillin Sod/ Tazobactam Sod 100 ml @ 25 mls/hr Q6HR IV 01/23/24 12:00 01/24/24 17:49 25 MLS/HR Mesalamine 800 mg BID PO 01/23/24 22:00 01/24/24 09:21 800 MG objective General: NAD, AAOX3 Chest: lung kirkpatrick clear to auscultation Heart: RRR, no murmur Abdomen: non-distended,+ LUQ tenderness to palpation, +BS Extremities right arm swelling, without clubbing cyanosis or edema laboratory and microbiology Laboratory Tests 01/24/24 06:02 Test 01/24/24 06:02 Range/Units Serum Glucose 100 74-106 mg/dL Repeat CT Scan Abd IMPRESSION: 1. Interval increase in size of hypodense collection along the lateral margins of the spleen now measuring 3.6 cm in maximum diameter. There is greater scalloping of the lateral margin of the spleen. There is again a wedge defect in the upper spleen. 2. Previously seen hypodense collections in the spleen also appear larger in size. There are additional small hypodense foci in the spleen which were not previously seen. 3. Interval increase in ascites, particularly in the pelvis. 4. Mild interval increase in left-sided pleural effusion. Problems(with codes): (1) Splenic laceration (2) Abnormal finding on GI tract imaging (3) Sepsis (4) Symptomatic anemia (5) Wounds, multiple open, arm (6) Cellulitis (7) Ulcerative colitis Prognosis Plan Patient was on IV antibiotics Continue mesalamine 800 mg p.o. twice a day Patient is tolerating diet H&H has slowly drifted down to 7.1 Transfused 1 unit PRBC if hemoglobin drops below seven Patient is awaiting transfer to higher level of care for possible Interventional Radiology and/or surgical intervention Dietary Evaluation Review Recommendations by RD: Decrease Calorie Intake Comments: 1) Consider HAROON 1 pkt BID for wounds 2) Continue current plan of care Expected Outcomes/Goals: F/U in 3-5 days Plan discussed with: Other (Nurse) CC Plasma Assessment Blood Product Administration S: [id number] YANIV WASHBURN MD Jan 24, 2024 18:18
--- NOTE | 2024-01-24 22:39 | DVHPN2 ---
Consult Progress Note Date Seen: Jan 24, 2024 Subjective Patient reports: Feels better (wounds stable) Objective vital signs Vital Sign Date Time Temp Pulse Resp B/P (MAP) Pulse Ox O2 Delivery O2 Flow Rate FiO2 01/24/24 21:00 99.6 90 20 116/75 (89) 97 99.6 01/24/24 20:00 Room Air* 0 21 Total Intake and Output 01/23/24 01/23/24 01/24/24 15:00 23:00 07:00 Intake Total 250 ml 1260 ml 550 ml Output Total 602 ml 300 ml Balance 250 ml 658 ml 250 ml medications Current Medications Medications Dose Ordered Sig/Latoya Route Start Time Stop Time Status Last Admin Dose Admin Nitroglycerin 0.4 mg Q5MINP PRN SL 01/16/24 05:15 Morphine Sulfate 2 mg Q30M PRN IV 01/16/24 05:15 Pantoprazole Sodium 40 mg DAILY IV 01/16/24 10:00 01/24/24 09:17 40 MG Vancomycin HCl 0 ml @ 0 mls/hr UD IV 01/16/24 11:00 Ergocalciferol 50,000 unit Q7D PO 01/18/24 09:00 01/18/24 09:12 50,000 UNIT Acetaminophen 650 mg Q6HR PO 01/19/24 12:00 01/24/24 17:58 650 MG Ibuprofen 400 mg Q6HP PRN PO 01/20/24 18:15 01/24/24 13:06 400 MG Enteral Nutritional Formula 240 ml BIDWM PO 01/22/24 18:00 Vancomycin HCl 250 ml @ 250 mls/hr Q12H IV 01/22/24 12:00 01/24/24 13:02 250 MLS/HR Enteral Nutritional Formula 27.5 gm BIDWM PO 01/22/24 18:00 Ondansetron HCl 4 mg Q6HPRN PRN IV 01/22/24 13:00 Lactated Ringer's 1,000 ml @ 100 mls/hr Q10H IV 01/22/24 17:00 01/24/24 17:51 100 MLS/HR Betamethasone Dipropion Augmented 1 applic BID TOP 01/22/24 22:00 01/24/24 21:01 1 APPLIC Minocycline HCl 100 mg Q12HR PO 01/22/24 22:00 01/24/24 21:00 100 MG Iron Sucrose 110 ml @ 110 mls/hr DAILY@1200 IV 01/23/24 12:00 01/27/24 12:59 01/24/24 11:07 110 MLS/HR Piperacillin Sod/ Tazobactam Sod 100 ml @ 25 mls/hr Q6HR IV 01/23/24 12:00 01/24/24 17:49 25 MLS/HR Mesalamine 800 mg BID PO 01/23/24 22:00 01/24/24 21:00 800 MG PHYSICAL EXAM: - GENERAL: Alert and oriented x 3. No acute distress. Well-nourished. - EYES: EOMI. Anicteric. - HENT: Moist mucous membranes. No scleral icterus. No cervical lymphadenopathy. - LUNGS: Clear to auscultation bilaterally. No accessory muscle use. - CARDIOVASCULAR: Regular rate and rhythm. No murmur. No JVD. - ABDOMEN: Soft, non-tender and non-distended. No palpable masses. - EXTREMITIES: No edema. Non-tender.?SKIN: No rashes or lesions. Warm. - NEUROLOGIC: No focal neurological deficits. CN II-XII grossly intact, but not individually tested - PSYCHIATRIC: Cooperative. Appropriate mood and affect. laboratory and microbiology Laboratory Tests 01/24/24 06:02 Test 01/24/24 06:02 Range/Units Serum Glucose 100 74-106 mg/dL Problem List/Assessment/Plan Problem List/Assessment/Plan (1) Sepsis (2) Ulcerative colitis (3) Cellulitis (4) Wounds, multiple open, arm (5) Symptomatic anemia Plan/Recommendation ASSESSMENT AND PLAN: ID Problem List: - Pyoderma gangrenosum - Suspected splenic abscess vs. hematoma - Inflammatory bowel disease (ulcerative colitis) - Leukocytosis - Sepsis Assessment: This is a 28 y.o. male with a past medical history of osteoporosis and inflammatory bowel disease (ulcerative colitis), who presents with painful ulcers on his left forearm and groin area. The patient reports that these wounds developed ulcers, which ruptured and are painful. He has been feeling unwell for the last three days prior to admission. He is originally from [place] and recently traveled to [facility] to visit family. He endorses being bitten by bugs during his travel but is unsure of the type of insects. On examination, the patient appears pale and malnourished with a low BMI of 19.9. Vital signs are notable for fever (Tmax 101.5F) and tachycardia (HR 125 bpm). Physical exam reveals wounds on the left forearm and groin with clear boundaries, violaceous borders, tender, draining exudate at the center. Imaging studies include: - CT abdomen and pelvis showing a mildly hyperdense collection on the lateral margin of the spleen measuring 1.9 cm in diameter with scalloping along the lateral margins and a wedge defect in the upper spleen. Findings may represent splenic laceration or subcapsular hematoma; splenic abscess is not entirely excluded. Several nonspecific hypodensities within the spleen measuring 1.1 cm may represent simple cysts. MRI of the abdomen is recommended. - Ultrasound of the left forearm revealing a 0.6 x 0.5 x 0.6 cm cystic mass-like structure, which could represent a sebaceous cyst. - Chest X-ray showing no acute disease. - Blood cultures are no growth to date. Laboratory studies reveal leukocytosis. MRI abd w/. 1.9 cm hematoma of spleen - suspect pyodermic involvement of viscera likely aseptic but cannot rule out infection 01/18: wound culture is growing possible enterococcus 01/19: white count is 30.4 , Dr israel evluated patient and wants to hold off on biopsy in the setting of fevers and sepsis and recommends higher level of care . GI recommends avoiding steroids at this time for possible spleenic abscess 01/20: whitecount remains elevated at 29 01/21: repeat Ct which showed 2 cm hypodense collection on the lateral marginal spleen suggest of a subcapsular hematoma , consistant with spleenic glyceration . patients white count improving to 22.1 Plan: - recommend betamethasone topic cream for lesions -watch patient closely , if fever worsens or lesions get larger immediately stop therapy - Continue Cefepime and flagyl - start minocycline - Continue vancomycin for broad-spectrum coverage. - Recommend biopsy of skin lesions, suspect splenic abscess is visceral manifestation of pyoderma gangrenosum. however since GI and general surgery are avoiding skin biopsy and treatment with steroids recommend higher level of care where patient can be monitored more closely - Follow up on wound cultures and adjust antibiotics as necessary. - Monitor vital signs and laboratory studies for any changes. Isolation Precautions: Standard Assessment and plan were discussed with the patient as written above. Plan is subject to change pending incorporation of new incoming information/diagnostics. Updates may be added as addendum at the bottom (OR TOP) of this note. Thank you for the interesting consult. ID will continue to follow. Please contact Infectious Disease for any questions or concerns. Ana Martinez M.D. Plan discussed with: Patient Dietary Evaluation Review Recommendations by RD: Decrease Calorie Intake Comments: 1) Consider HAROON 1 pkt BID for wounds 2) Continue current plan of care Expected Outcomes/Goals: F/U in 3-5 days CC Plasma Assessment Blood Product Administration S: [id number] ANA MARTINEZ MD Jan 24, 2024 22:39
[2024-01-25] VITALS (8 sets, daily range): BP systolic 96–121; BP diastolic 52–76; PULSE 110–133; RESP 14–20; TEMP 98.7–102.7; O2SAT 94–98
[2024-01-25 07:45] LABS: Basophils % (auto) 0.2 % (0.0-2.0); Eosinophils % (auto) 0.6 % (0.0-7.0)
[2024-01-25 07:47] LABS: Basophils # (auto) 0 10 ^3/uL (0-0.2); Eosinophils # (auto) 0.2 10 ^3/uL (0-0.8); Hematocrit 23.4 % (41.0-53.0); Hemoglobin 7.1 g/dL (13.5-17.5); Lymphocytes % (auto) 4.3 % (10.0-50.0); Mean Corpuscular Hgb Conc. 30.5 g/dL (32.0-36.0); Mean Corpuscular Volume 62.4 fL (80.0-100.0); Monocytes # (auto) 1.4 10 ^3/uL (0-1.3); Monocytes % (auto) 5.8 % (0.0-12.0); Neutrophils % (auto) 89.1 % (37.0-80.0); Platelet Count (auto) 539 10^3/uL (140-450); Red Blood Cells 3.74 10^6/uL (4.5-5.90); White Blood Cell 23.6 10^3/uL (4.4-10.8)
[2024-01-25] MEDS: IOHEXOL 300 MG/ML 100ML BOTTLE IJ ONE ×2 (07:49)
[2024-01-25] MEDS: GADOTERATE MEG 10 MMOL/20ml INJ (0.5MMOL/ml) IV ONE (07:49)
[2024-01-25 08:03] LABS: Alanine Aminotransferase 17 U/L (7-40); Anion Gap 6 (5-15); Aspartate Aminotransferase 31 U/L (13-40); BUN/Creatinine Ratio 7.1 (10.0-20.0); Bilirubin, Total 0.6 mg/dL (0.2-1.0); Carbon Dioxide 25 mmol/L (20-31); Chloride 101 mmol/L (98-107); Glucose 94 mg/dL (74-106); Potassium 3.8 mmol/L (3.5-5.1); Total Protein 6.3 g/dL (5.7-8.2)
[2024-01-25 08:07] LABS: Albumin 2.5 g/dL (3.2-4.8); Alkaline Phosphatase 328 U/L (46-116); Blood Urea Nitrogen 7 mg/dL (9-23); Calcium 8.5 mg/dL (8.7-10.4); Sodium 132 mmol/L (136-145)
[2024-01-25 08:15] LABS: Red Cell Distribution Width 28.6 % (11.8-14.3)
[2024-01-25] MEDS: HYDROcodone-ACET 5/325MG TAB PO PRN (10:56)
[2024-01-25] MEDS: FOLIC ACID 1 MG TAB PO SCH (10:57)
[2024-01-25] MEDS: MULTIPLE VITAMINS W/ MINERALS TAB PO SCH (10:57)
[2024-01-25] MEDS: diphenhdrAMINE HCL 50 MG/1 ML VL IM ONE (14:30)
[2024-01-25] MEDS ORDERED: IBUPROFEN 600 MG TAB PO PRN (17:00)
[2024-01-25] MEDS: ACETAMINOPHEN 325 MG TAB PO ONE (17:45)
[2024-01-25] MEDS: IBUPROFEN 600 MG TAB PO ONE (17:45)
[2024-01-25] MEDS: KETOROLAC TROMETH 30 MG/ML 1ML VIAL IV ONE (18:03)
--- NOTE | 2024-01-25 20:08 | DVHPN2 ---
Progress Note - Dictate Date Seen: Jan 25, 2024 Medical Necessity Reason Pt with a Central, PICC or Fol: No Subjective Patient continues to run low-grade fevers He has continued mild abdominal pain Patient had two-three bowel movements today Hemoglobin down but stable at 7.1 Persistent leukocytosis with a WBC down to 23.8 vital signs Vital Sign Date Time Temp Pulse Resp B/P (MAP) Pulse Ox O2 Delivery O2 Flow Rate FiO2 01/25/24 18:51 100.0 01/25/24 17:15 131 17 116/73 (87) 98 01/25/24 08:00 Room Air* 0 21 Total Intake and Output 01/24/24 01/24/24 01/25/24 15:00 23:00 07:00 Intake Total 460 ml 1925 ml 1650 ml Output Total 800 ml 1500 ml Balance 460 ml 1125 ml 150 ml medications Current Medications Medications Dose Ordered Sig/Latoya Route Start Time Stop Time Status Last Admin Dose Admin Nitroglycerin 0.4 mg Q5MINP PRN SL 01/16/24 05:15 Morphine Sulfate 2 mg Q30M PRN IV 01/16/24 05:15 Pantoprazole Sodium 40 mg DAILY IV 01/16/24 10:00 01/25/24 10:56 40 MG Vancomycin HCl 0 ml @ 0 mls/hr UD IV 01/16/24 11:00 Ergocalciferol 50,000 unit Q7D PO 01/18/24 09:00 01/25/24 10:56 50,000 UNIT Acetaminophen 650 mg Q6HR PO 01/19/24 12:00 01/25/24 17:51 650 MG Enteral Nutritional Formula 240 ml BIDWM PO 01/22/24 18:00 Vancomycin HCl 250 ml @ 250 mls/hr Q12H IV 01/22/24 12:00 01/25/24 00:00 250 MLS/HR Enteral Nutritional Formula 27.5 gm BIDWM PO 01/22/24 18:00 Ondansetron HCl 4 mg Q6HPRN PRN IV 01/22/24 13:00 Lactated Ringer's 1,000 ml @ 100 mls/hr Q10H IV 01/22/24 17:00 01/25/24 03:45 100 MLS/HR Betamethasone Dipropion Augmented 1 applic BID TOP 01/22/24 22:00 01/25/24 10:56 1 APPLIC Minocycline HCl 100 mg Q12HR PO 01/22/24 22:00 01/25/24 10:57 100 MG Iron Sucrose 110 ml @ 110 mls/hr DAILY@1200 IV 01/23/24 12:00 01/27/24 12:59 01/25/24 12:55 110 MLS/HR Piperacillin Sod/ Tazobactam Sod 100 ml @ 25 mls/hr Q6HR IV 01/23/24 12:00 01/25/24 17:51 25 MLS/HR Mesalamine 800 mg BID PO 01/23/24 22:00 01/25/24 10:56 800 MG Multivitamins/ Minerals 1 tab DAILY PO 01/25/24 10:00 01/25/24 10:57 1 TAB Folic Acid 1 mg DAILY PO 01/25/24 10:00 01/25/24 10:57 1 MG Acetaminophen/ Hydrocodone Bitart 1 tab Q6HPRN PRN PO 01/25/24 10:15 01/25/24 10:56 1 TAB Ibuprofen 600 mg Q6HP PRN PO 01/25/24 17:00 objective General: NAD, AAOX3 Chest: lung kirkpatrick clear to auscultation Heart: RRR, no murmur Abdomen: non-distended,+ LUQ tenderness to palpation, +BS Extremities right arm swelling, without clubbing cyanosis or edema laboratory and microbiology Laboratory Tests 01/25/24 06:28 Test 01/25/24 06:28 Range/Units Serum Glucose 94 74-106 mg/dL Problems(with codes): (1) Splenic abscess (2) Abnormal finding on GI tract imaging (3) Splenic laceration (4) Sepsis (5) Symptomatic anemia (6) Wounds, multiple open, arm (7) Cellulitis (8) Ulcerative colitis Prognosis Plan Appreciate ID follow up Patient has been accepted at [facility] and transferred has been arranged for tonight Overall his prognosis remains guarded and patient will likely need either interventional radiology or surgical intervention for abscess drainage possible splenectomy Subsequent to healing from the acute infection and illness then the patient can be considered for biologicals or steroids for his colitis Continue mesalamine 800 mg p.o. twice a day Dietary Evaluation Review Recommendations by RD: Decrease Calorie Intake Comments: 1) Consider HAROON 1 pkt BID for wounds 2) Continue current plan of care Expected Outcomes/Goals: F/U in 3-5 days Plan discussed with: Patient, Other CC Plasma Assessment Blood Product Administration S: [id number] YANIV WASHBURN MD Jan 25, 2024 20:08
--- NOTE | 2024-01-25 20:50 | DVHDSRES ---
Discharge Summary Date of Admission Resident Creating Document: MOISE GARCIA RESDIBISMARK Jan 16, 2024 at 05:03 Date of Discharge: Jan 20, 2024 Labs/Diagnostic Data: Laboratory Results Test 01/25/24 06:28 01/24/24 06:02 01/23/24 22:58 01/23/24 06:21 White Blood Count 23.6 10^3/uL (4.4-10.8) Red Blood Count 3.74 10^6/uL (4.5-5.90) Hemoglobin 7.1 g/dL (13.5-17.5) Hematocrit 23.4 % (41.0-53.0) Mean Corpuscular Volume 62.4 fL (80.0-100.0) Mean Corpuscular Hemoglobin 19.0 pg (28.0-32.0) Mean Corpuscular Hemoglobin Concent 30.5 g/dL (32.0-36.0) Red Cell Distribution Width 28.6 % (11.8-14.3) Platelet Count 539 10^3/uL (140-450) Mean Platelet Volume 8.5 fL (6.9-10.8) Neutrophils (%) (Auto) 89.1 % (37.0-80.0) Lymphocytes (%) (Auto) 4.3 % (10.0-50.0) Monocytes (%) (Auto) 5.8 % (0.0-12.0) Eosinophils (%) (Auto) 0.6 % (0.0-7.0) Basophils (%) (Auto) 0.2 % (0.0-2.0) Neutrophils # (Auto) 21.0 10 ^3/uL (1.6-8.6) Lymphocytes # (Auto) 1.0 10 ^3/uL (0.4-5.4) Monocytes # (Auto) 1.4 10 ^3/uL (0-1.3) Eosinophils # (Auto) 0.2 10 ^3/uL (0-0.8) Basophils # (Auto) 0 10 ^3/uL (0-0.2) Nucleated Red Blood Cells 0.0 % Sodium Level 132 mmol/L (136-145) Potassium Level 3.8 mmol/L (3.5-5.1) Chloride Level 101 mmol/L (98-107) Carbon Dioxide Level 25 mmol/L (20-31) Anion Gap 6 (5-15) Blood Urea Nitrogen 7 mg/dL (9-23) Creatinine 0.98 mg/dL (0.700-1.30) Glomerular Filtration Rate Calc 109 mL/min (>90) BUN/Creatinine Ratio 7.1 (10.0-20.0) Serum Glucose 94 mg/dL (74-106) Calcium Level 8.5 mg/dL (8.7-10.4) Total Bilirubin 0.6 mg/dL (0.2-1.0) Aspartate Amino Transferase (AST) 31 U/L (13-40) Alanine Aminotransferase (ALT) 17 U/L (7-40) Alkaline Phosphatase 328 U/L (46-116) Total Protein 6.3 g/dL (5.7-8.2) Albumin 2.5 g/dL (3.2-4.8) Differential Total Cells Counted 100.0 (100) Neutrophils % (Manual) 89 (37.0-80.0) Band Neutrophils % (Manual) 0 Lymphocytes % (Manual) 5 (10.0-50.0) Monocytes % (Manual) 6 (0-12) Eosinophils % (Manual) 0 (0-7) Basophils % (Manual) 0 (0.0-2.0) Metamyelocytes % (manual) 0 Myelocytes % (Manual) 0 Promyelocytes % (Manual) 0 Blast Cells % (Manual) 0 Reactive Lymphocytes 0 Platelet Estimate Increased Hypochromasia (manual) Marked Anisocytosis (manual) Moderate Microcytosis Marked Vancomycin Level Trough 14.2 ug/mL (5-10) Schistocytes Few Test 01/22/24 05:43 01/20/24 10:23 01/20/24 06:21 01/18/24 10:59 Random Vancomycin Level 11.0 ug/mL (5-10) Lactic Acid Level 1.3 mmol/L (0.4-2.0) Iron Level 11 ug/dL (65-175) Total Iron Binding Capacity 204 ug/dL (250-425) Percent Iron Saturation 5.4 % (20-55) POC Glucose 142 mg/dl (70-106) Test 01/18/24 00:15 01/17/24 06:00 01/16/24 18:25 01/16/24 06:39 Stool Occult Blood Positive (Negative) Stool Occult Blood Sample #3 (Negative) Reticulocyte Count (auto) 1.84 % (0.5-1.5) Magnesium Level 1.7 mg/dL (1.6-2.6) Gamma Glutamyl Transpeptidase 219 U/L (<73) Lactate Dehydrogenase 135 U/L (120-246) Vitamin B12 Level 1406 pg/mL (211-911) Vitamin D 25-Hydroxy 29.0 ng/mL (30.0-100) Anti-Nuclear Antibody Comment Comment (.) Cytoplasmic ANCA (c-ANCA) Antibody <1:20 titer (Neg:<1:20) Anti-Proteinase 3 (c-ANCA) 2.3 units (0.0-0.9) Atypical p-ANCA <1:20 titer (Neg:<1:20) Perinuclear ANCA (p-ANCA) Antibody 1:320 titer (Neg:<1:20) Myeloperoxidase Antibody <0.2 units (0.0-0.9) GRACIE-1 Antibody <0.2 AI (0.0-0.9) SS-A/Ro Antibody <0.2 AI (0.0-0.9) SS-B/La Antibody <0.2 AI (0.0-0.9) Sm Antibody <0.2 AI (0.0-0.9) NOCTURNIST Antibody <0.2 AI (0.0-0.9) Scl-70 (Scleroderma) Antibody <0.2 AI (0.0-0.9) Anti-Double Strand DNA Antibody <1 IU/mL (0-9) Chromatin Antibody <0.2 AI (0.0-0.9) Centromere B Antibody <0.2 AI (0.0-0.9) Rapid Plasma Reagin Non reactive (Non Reactive) HIV (1&2) Antibody Negative (Negative) Urine Color Yellow (Yellow) Urine Clarity Clear (Clear) Urine pH 5.5 (5.0-9.0) Urine Specific [place] 1.050 (1.001-1.035) Urine Protein Trace (Negative) Urine Ketones Trace (Negative) Urine Blood Negative /uL (Negative) Urine Nitrite Negative (Negative) Urine Bilirubin Negative (Negative) Urine Urobilinogen Normal mg/dL (Negative) Urine Leukocyte Esterase Negative /uL (Negative) Urine RBC 1 /hpf (0 - 3) Urine WBC 3 /hpf (0 - 3) Urine Squamous Epithelial Cells Few /hpf (<5) Urine Bacteria None seen /hpf (None Seen) Urine Mucus Few (None Seen) Urine Glucose Normal mg/dL (Normal) Urine Opiates Screen Neg (NEGATIVE) Urine Fentanyl Screen Neg (NEGATIVE) Urine Barbiturates Screen Neg (NEGATIVE) Urine Phencyclidine Screen Neg (NEGATIVE) Urine Amphetamines Screen Neg (NEGATIVE) Urine Benzodiazepines Screen Neg (NEGATIVE) Urine Cocaine Screen Neg (NEGATIVE) Urine Cannabinoids Screen Neg (NEGATIVE) Erythrocyte Sedimentation Rate 96 mm/hr (0-20) Haptoglobin 340 mg/dL (17-317) Prothrombin Time 13.6 sec (9.3-11.8) Prothrombin Time INR 1.31 (0.9-1.15) Activated Partial Thromboplast Time 29.8 SEC (24.5-34.5) Ferritin 23.4 ng/mL (22-322) C-Reactive Protein High Sensitivity 15.29 mg/dL (<1.0) Thyroid Stimulating Hormone (TSH) 3.10 uIU/mL (0.55-4.78) Plasma/Serum Blood Alcohol < 3.0 mg/dL (<10) Hepatitis B Surface Antigen Negative (Negative) Hepatitis B Surface Antibody Negative (Negative) Hepatitis C Antibody Negative (Negative) Test 01/16/24 02:30 Large Platelets Few Poikilocytosis (manual) Slight Target Cells Few Other Laboratory Tests 01/25/24 06:28 Condition at Discharge: Higher Level of Care Final Diagnosis/Problems List # Sepsis # Leukocytosis with left shift # Ulcerative colitis Flare up with ?pyoderma gangrenosum # ?pyoderma gangrenosum # splenic abcess vs splenic hematoma # Microcytic hypochromic anemia # Iron deficiency # Splenic hematoma with acute bleeding Discharge Disposition: Acute Care Facility Discharge Instruct/Medications Diet: Regular Activity: No Restrictions, As Tolerated Medications: as per the transfer spreadsheet Discharge Statement: "Patient was advised to return to the ER or call 911 if any headaches, dizziness, shortness of breath, chest pain, abdominal pain, bleeding, fevers, or worsening of medical condition. Patient was counseled about treatment plan, medications, possible side effects, patientverbalized understanding. All questions were answered to the best of my ability. This discharge took greater then 30 minutes in planning, reviewing documentation, counseling the patient, and discussing with other team members." ASSESSMENT ASSESSMENT Assessment # Sepsis # Leukocytosis with left shift # Ulcerative colitis Flare up with ?pyoderma gangrenosum # ?pyoderma gangrenosum # splenic abcess vs splenic hematoma # Microcytic hypochromic anemia # Iron deficiency # Splenic hematoma with acute bleeding MOISE GARCIA RESDIENT Jan 25, 2024 20:50
--- NOTE | 2024-01-26 13:09 | DVHPN2 ---
Consult Progress Note Date Seen: Jan 25, 2024 Subjective Patient reports: Feels better (no diarrhea or rash) Objective vital signs Vital Sign Date Time Temp Pulse Resp B/P (MAP) Pulse Ox O2 Delivery O2 Flow Rate FiO2 01/25/24 22:22 98.7 112 14 114/70 (85) 94 98.7 01/25/24 20:00 Room Air* 0 21 Total Intake and Output 01/25/24 01/25/24 01/26/24 15:00 23:00 07:00 Intake Total 210 ml 1700 ml Output Total 900 ml Balance 210 ml 800 ml medications PHYSICAL EXAM: - GENERAL: Alert and oriented x 3. No acute distress. Well-nourished. - EYES: EOMI. Anicteric. - HENT: Moist mucous membranes. No scleral icterus. No cervical lymphadenopathy. - LUNGS: Clear to auscultation bilaterally. No accessory muscle use. - CARDIOVASCULAR: Regular rate and rhythm. No murmur. No JVD. - ABDOMEN: Soft, non-tender and non-distended. No palpable masses. - EXTREMITIES: No edema. Non-tender.?SKIN: No rashes or lesions. Warm. - NEUROLOGIC: No focal neurological deficits. CN II-XII grossly intact, but not individually tested - PSYCHIATRIC: Cooperative. Appropriate mood and affect. laboratory and microbiology Laboratory Tests 01/25/24 06:28 Test 01/25/24 06:28 Range/Units Serum Glucose 94 74-106 mg/dL Problem List/Assessment/Plan Problem List/Assessment/Plan (1) Sepsis (2) Ulcerative colitis (3) Cellulitis (4) Wounds, multiple open, arm (5) Symptomatic anemia Plan/Recommendation ASSESSMENT AND PLAN: ID Problem List: - Pyoderma gangrenosum - Suspected splenic abscess vs. hematoma - Inflammatory bowel disease (ulcerative colitis) - Leukocytosis - Sepsis Assessment: This is a 28 y.o. male with a past medical history of osteoporosis and inflammatory bowel disease (ulcerative colitis), who presents with painful ulcers on his left forearm and groin area. The patient reports that these wounds developed ulcers, which ruptured and are painful. He has been feeling unwell for the last three days prior to admission. He is originally from [place] and recently traveled to [facility] to visit family. He endorses being bitten by bugs during his travel but is unsure of the type of insects. On examination, the patient appears pale and malnourished with a low BMI of 19.9. Vital signs are notable for fever (Tmax 101.5F) and tachycardia (HR 125 bpm). Physical exam reveals wounds on the left forearm and groin with clear boundaries, violaceous borders, tender, draining exudate at the center. Imaging studies include: - CT abdomen and pelvis showing a mildly hyperdense collection on the lateral margin of the spleen measuring 1.9 cm in diameter with scalloping along the lateral margins and a wedge defect in the upper spleen. Findings may represent splenic laceration or subcapsular hematoma; splenic abscess is not entirely excluded. Several nonspecific hypodensities within the spleen measuring 1.1 cm may represent simple cysts. MRI of the abdomen is recommended. - Ultrasound of the left forearm revealing a 0.6 x 0.5 x 0.6 cm cystic mass-like structure, which could represent a sebaceous cyst. - Chest X-ray showing no acute disease. - Blood cultures are no growth to date. Laboratory studies reveal leukocytosis. MRI abd w/. 1.9 cm hematoma of spleen - suspect pyodermic involvement of viscera likely aseptic but cannot rule out infection 01/18: wound culture is growing possible enterococcus 01/19: white count is 30.4 , Dr israel evluated patient and wants to hold off on biopsy in the setting of fevers and sepsis and recommends higher level of care . GI recommends avoiding steroids at this time for possible spleenic abscess 01/20: whitecount remains elevated at 29 01/21: repeat Ct which showed 2 cm hypodense collection on the lateral marginal spleen suggest of a subcapsular hematoma , consistant with spleenic glyceration . patients white count improving to 22.1 Plan: - recommend betamethasone topic cream for lesions -watch patient closely , if fever worsens or lesions get larger immediately stop therapy - Continue Cefepime and flagyl - start minocycline - Continue vancomycin for broad-spectrum coverage. - Recommend biopsy of skin lesions, suspect splenic abscess is visceral manifestation of pyoderma gangrenosum. however since GI and general surgery are avoiding skin biopsy and treatment with steroids recommend higher level of care where patient can be monitored more closely - Follow up on wound cultures and adjust antibiotics as necessary. - Monitor vital signs and laboratory studies for any changes. Isolation Precautions: Standard Assessment and plan were discussed with the patient as written above. Plan is subject to change pending incorporation of new incoming information/diagnostics. Updates may be added as addendum at the bottom (OR TOP) of this note. Thank you for the interesting consult. ID will continue to follow. Please contact Infectious Disease for any questions or concerns. Ana Martinez M.D. Plan discussed with: Patient Dietary Evaluation Review Recommendations by RD: Decrease Calorie Intake Comments: 1) Consider HAROON 1 pkt BID for wounds 2) Continue current plan of care Expected Outcomes/Goals: F/U in 3-5 days CC Plasma Assessment Blood Product Administration S: [id number] ANA MARTINEZ MD Jan 26, 2024 13:09
== END 2024-01-25 22:13 | disposition short-term general hospital (02) | DRG 872 ==
LOC: ER 01:27 → TELE 05:03 → TELE-EAST 05:03
PROVIDERS: ADMIT Student in an Organized Health Care Education/Training Program; ATTEND Student in an Organized Health Care Education/Training Program
PROC: 30233N1 Transfusion of Nonautologous Red Blood Cells into Peripheral Vein, Percutaneous Approach (ICD-10-PCS; principal; 2024-01-16)
DX: A41.9 Sepsis, unspecified organism (principal); L03.114 Cellulitis of left upper limb; E87.1 Hypo-osmolality and hyponatremia; L88 Pyoderma gangrenosum; Z68.1 Body mass index [BMI] 19.9 or less, adult; E44.1 Mild protein-calorie malnutrition; K51.00 Ulcerative (chronic) pancolitis without complications; D73.3 Abscess of spleen; R65.20 Severe sepsis without septic shock; D50.9 Iron deficiency anemia, unspecified; S50.862A Insect bite (nonvenomous) of left forearm, initial encounter; S30.861A Insect bite (nonvenomous) of abdominal wall, initial encounter; D75.839 Thrombocytosis, unspecified; D73.5 Infarction of spleen; M81.0 Age-related osteoporosis without current pathological fracture; W57.XXXA Bitten or stung by nonvenomous insect and other nonvenomous arthropods, initial encounter; Y93.89 Activity, other specified; Y92.89 Other specified places as the place of occurrence of the external cause; Y99.8 Other external cause status
CPT/HCPCS: 36415; 71045; 71260; 74177; 74178; 74181; 76705; 76881; 80048; 80053; 80202; 80307; 80320; 81001; 82270; 82306; 82565; 82607; 82728; 82962; 82977; 83010; 83516; 83520; 83540; 83550; 83605; 83615; 83735; 84443; 85007; 85014; 85018; 85025; 85027; 85045; 85610; 85652; 85730; 86141; 86225; 86235; 86256; 86592; 86703; 86706; 86803; 86850; 86900; 86901; 86920; 87040; 87077; 87081; 87086; 87186; 87205; 87340; 93306; 93971; 96365; 96367; G0378; J1450; J1756; J1885; J2470; J2543; J3490